=== PATIENT | female | born 1970 | race Caucasian/White ===

== ENCOUNTER → 2020-01-11 11:55 | Outpatient (CLI) | payer BC, SELFPAY ==
[2020-01-11 12:37] LABS: Basophils # 0.1 K/mm3 (0-0.2); Basophils % 0.9 % (0.1-2.0); Eosinophils # 0.2 K/mm3 (0.0-0.4); Eosinophils % 3.4 % (0.1-12.0); Hematocrit 40.2 % (37.0-47.0); Hemoglobin 13.4 g/dL (12.2-16.2); Lymphocytes # 2.5 K/mm3 (0.7-4.5); Lymphocytes % 41.7 % (10-50); Mean Corpuscular HGB Conc 33.3 g/dL (31.8-35.4); Mean Corpuscular Hemoglobin 31.7 pg (27.0-31.2); Mean Corpuscular Volume 95.2 fl (81-99); Mean Platelet Volume 9.9 fl (7.4-10.4); Monocytes # 0.3 K/mm3 (0.1-1.0); Monocytes % 5.5 % (1.7-9.3); Neutrophils # 2.9 K/mm3 (1.8-7.8); Neutrophils % 48.4 % (37.0-80.0); Platelet Count 137 K/mm3 (142-424); Red Blood Count 4.22 M/mm3 (4.20-5.40); Red Cell Distribution Width 13.1 % (11.5-17.5)
[2020-01-11 13:20] LABS: Erythrocyte Sedimentation Rate 14 mm/hr (0-20)
[2020-01-11 13:21] LABS: Chloride 101 mmol/L (98-107); Sodium 138 mmol/L (136-145)
[2020-01-11 13:22] LABS: Potassium 4.1 mmoL/L (3.5-5.1)
[2020-01-11 13:24] LABS: Alanine Aminotransferase 15 U/L (12-78); Albumin Level 4.2 g/dl (3.5-5.0); Albumin/Globulin Ratio 1.7 (1.1-1.8); Alkaline Phosphatase 65 U/L (38-126); Anion Gap 10.1 mEq/L (5-15); Aspartate Amino Transferase 24 U/L (14-36); Bilirubin,Total 0.3 mg/dl (0.2-1.3); Blood Urea Nitrogen 16 mg/dl (7-17); Carbon Dioxide 31 mmol/L (22.0-30.0); Cholesterol 174 mg/dl (140-200); Estimated Glomerular Filt Rate 89 ml/min (>60); GFR (African American) 107 ML/MIN (>60); Globulin 2.5 g/dL (1.3-3.2); Total Protein,Serum 6.7 g/dl (6.3-8.2); Triglycerides 56 mg/dl (30-150); VLDL Cholesterol 11 mg/dL (0-40)
[2020-01-11 13:25] LABS: Calcium 9.3 mg/dl (8.4-10.2); Chol/HDL Ratio 3.2 (1-3.5); Glucose 87 mg/dl (74-100); HDL Cholesterol 55 mg/dl (40-60)
[2020-01-11 13:36] LABS: C-Reactive Protein < 0.3 mg/L (0-4)
[2020-01-11 13:41] LABS: 25-OH Vitamin D, Total 83.4 ng/mL (30-100)
[2020-01-11 13:42] LABS: Free T4 (Free Thyroxine) 1.21 ng/dl (0.78-2.19)
[2020-01-11 13:55] LABS: Thyroid Stimulating Hormone 0.87 uIU/mL (0.465-4.68)
[2020-01-12 17:03] LABS: RA Latex Turbid. <10.0 IU/mL (0.0-13.9)
[2020-01-13 10:48] LABS: Anti-Cyclic Citrullinated Pept 6 units (0-19)
[2020-01-14 12:12] LABS: Anti-Centromere B Antibodies <0.2 AI (0.0-0.9); Anti-Jo-1 <0.2 AI (0.0-0.9); Anti-Smith Antibody <0.2 AI (0.0-0.9); Antichromatin Antibodies <0.2 AI (0.0-0.9); Antiscleroderma-70 Antibodies <0.2 AI (0.0-0.9); RNP Antibodies <0.2 AI (0.0-0.9); Sjogren's Anti-SS-A <0.2 AI (0.0-0.9); Sjogren's Anti-SS-B <0.2 AI (0.0-0.9)
[2020-01-14 14:23] LABS: PTT-LA 37.9 sec (0.0-51.9); dRVVT 40.3 sec (0.0-47.0)
[2020-01-14 14:40] LABS: Anti-DNA (DS) Ab Qn 1 IU/mL (0-9); Lupus Reflex Interpretation Comment: (.)
== END ==
PROVIDERS: Visit Provider Emergency Medicine
DX: M19.90 Unspecified osteoarthritis, unspecified site (principal); J44.1 Chronic obstructive pulmonary disease with (acute) exacerbation; E55.9 Vitamin D deficiency, unspecified
CPT/HCPCS: 36415; 80053; 80061; 82306; 84439; 84443; 85025; 85613; 85651; 86140; 86200; 86225; 86235; 86431

== ENCOUNTER → 2020-01-11 12:38 | Outpatient (CLI) | payer BC, SELFPAY ==
[2020-01-12 14:20] LABS: Covid-19 Nasal PCR Sendout Lex Not Detected
== END ==
PROVIDERS: PCP Emergency Medicine; Visit Provider Emergency Medicine
DX: Z03.818 Encounter for observation for suspected exposure to other biological agents ruled out (principal)
CPT/HCPCS: U0004

== ENCOUNTER 2020-02-28 14:02 | Emergency (ER) | payer BC, SELFPAY ==
[2020-02-28 14:24] LABS: Apearance,Urine Clear (Clear); Color,Urine Yellow (Yellow); PH,Urine 5.5 (5.0-8.5); Specific Gravity, Urine 1.025 (1.005-1.030)
[2020-02-28 14:25] LABS: Bilirubin,Urine Negative (Negative); Blood, Urine 1+ (Negative); Glucose,Urine (UA) Negative (Negative); Ketones,Urine Negative (Negative); Protein,Urine Negative (Negative); UTC Leukocyte Esterase,Urine Negative (Negative); UTC Nitrate,Urine Negative (Negative); Urobilinogen,Urine 0.2 EU/dl (0.2)
[2020-02-28 14:26] VITALS: BP 110/71; PULSE 88; RESP 14; TEMP 36.8; O2SAT 99; BMI 20.3
--- NOTE | 2020-02-28 14:36 | PC.NURSE ---
PATIENT SENT TO ER PER PANKAJ SIMPSON APRN FOR FURTHER EVALUATION OF POSSIBLE KIDNEY STONES.
[2020-02-28 14:37] VITALS: BP 115/83; PULSE 89; RESP 16; TEMP 36.8; O2SAT 100; BMI 20.4
--- NOTE | 2020-02-28 14:40 | HMH.EDUTC ---
[facility] [place] Clinical Impression: Flank pain Disposition: Still a Patient Condition on Discharge: Good Referrals: Ru Rand MD [Primary Care Provider] - Time of Disposition: 14:47 Medical Decision Making - Christ Inquiry Pt receiving controlled substance: No Christ was queried for this patient: No Vital Signs: 02/28/20 14:26 Temperature 98.3 F Temperature Source Oral Pulse Rate [Right Brachial] 88 Respiratory Rate 14 Blood Pressure [Right Arm] 110/71 Blood Pressure Mean [Right Arm] 84 Blood Pressure Source [Right Arm] Automatic Cuff Blood Pressure Position [Right Arm] Sitting 02 Sat by Pulse Oximetry 99 Oxygen Delivery Method Room Air - Lab Data Lab results reviewed: Yes: I reviewed the patient's lab results. Lab Results 02/28/20 14:23: Urine Color Yellow, Urine Appearance Clear, Urine pH 5.5, Ur Specific [place] 1.025, Urine Protein Negative, Urine Glucose (UA) Negative, Urine Ketones Negative, Urine Blood 1+, Urine Nitrate Negative, Urine Bilirubin Negative, Urine Urobilinogen 0.2, Ur Leukocyte Esterase Negative [facility] [place] - General Stated complaint: possible kidney inf Time Seen by Provider: 02/28/20 14:40 Mode of Arrival: Ambulatory Source of Information: Patient Limitations: No Limitations Description of Symptoms (Recalled from Triage Doc. by RN): PATIENT C/O BACK PAIN SINCE TUESDAY. SHE STATES SHE THINKS SHE HAS A KIDNEY STONE. HAS A HISTORY OF KIDNEY STONES WITH BLOCKAGE HEENT Symptoms (Recalled from RN notes): No Resp Symptoms (Recalled from RN notes): No Skin Symptoms (Recalled from RN notes): No MS Symptoms (Recalled from RN notes): No Functional Status (Recalled from RN notes): WNL - History of Present Illness Provider Complaint: Patient states that on Tue she started having achy like feeling in lower back area that has continued to get worse States that she was thinking she either had a kidney stone or infection States that she feels like she may have a Kidney stone again and when she urinated earlier she felt irritated State that she has had stones before and had to have them busted up by the surgeon State that today pain was worse so she came in - Related Data Home Medications Medication Instructions Recorded Confirmed Buspirone HCl [Buspar 10mg 10 mg PO DAILY 02/12/19 01/11/20 tablet] Celecoxib 100 mg PO DAILY 02/12/19 01/11/20 Polyethylene Glycol 8000 500 gm PO DAILY 02/12/19 01/11/20 [Polyethylene Glycol] Previous Rx's Medication Instructions Recorded gabapentin 800 mg tablet 800 mg PO TID #90 tab 01/11/20 ropinirole 0.5 mg tablet 0.5 mg PO QHS #30 tab 02/06/20 Allergies Allergy/AdvReac Type Severity Reaction Status Date / Time codeine Allergy Verified 01/11/20 10:35 - Worker's Comp Is this a Worker's Comp case?: No [facility] History - Hepatitis A Screen Drug use history?: No High risk sexual behaviors?: No History of sexually transmitted infection?: No Currently employed?: No Childcare worker?: No Do you have indoor plumbing?: Yes Do you have electricity?: Yes Attestation statement:: This patient has been screened for Hepatitis A risk factors. I have reviewed the patient's past medical history: Yes Medical History: Reports:: Chronic Obstructive Pulmonary Disease (COPD) Other Medical History: Reports: Arthritis Other Surgeries: Yes: Other (kidney stones,back surgery) Amputation: No Fractures: Yes (back fx) - Social History Smoking Status: Current every day smoker Tobacco Type: cigarettes # Packs/Day (cigarettes): 1 Alcohol Intake: never Substance Use Type: denies use Occupational Status: employed Housing: house Family Hx:: Cancer, Heart Attack, Kidney Disease ROS Obtained: Yes All systems reviewed & no additional complaints, Yes Systems reviewed as appropriate & no additional complaints - Constitutional Constitutional: Reports system reviewed and no additional complaints, except as docu - ENT Ears, Nose, Mouth,
--- NOTE | 2020-02-28 14:53 | CT_ITS ---
PROCEDURE: CT ABDOMEN PELVIS WO CON CLINICAL INDICATION: abd pain Low back pain, frequent urination COMPARISON: No exams were available for comparison TECHNIQUE: Axial images obtained with sagittal and coronal reformats. All CT scans at the facility use one or more dose reduction, viz: automated exposure control, ma/kV adjustment per patient size (including targeted exams where dose is matched to indication, i.e. head), or iterative reconstruction technique. FINDINGS: LOWER THORAX: A small pneumatocele in the central aspect of the right lung base. ABDOMEN & PELVIS: The liver, spleen, and pancreas have an unremarkable appearance. There is mild enlargement of both adrenal glands which are low density consistent with adenomatous involvement. There are at least 3 right renal calculi the largest measuring approximately 4 mm. No ureteral calculi. No hydronephrosis. No evidence of appendicitis. Multiple unopacified bowel loops in the abdomen or pelvis which could obscure or mimic pathology. If symptoms persist, consider repeat exam with IV and oral contrast. There are bilateral tubal ligation clips. No evidence diverticulitis. Prior posterior fusion at L4-L5. No acute bony findings. IMPRESSION: Nonobstructing right renal calculi. Other nonacute findings as described above Dictated by: Alcides Paulino MD 02/28/2020 16:27 Alcides Paulino MD in [place] 02/28/2020 16:27
--- NOTE | 2020-02-28 14:55 | PC.NURSE ---
PATIENT WOULD LIKE TO HOLD OFF ON LABS AT THIS TIME. PROVIDER NOTIFIED
[2020-02-28 14:58] LABS: Microscopic, Urine URINE MICROSCOPIC (MICROSCOPIC)
[2020-02-28 15:00] LABS: Appearance,Urine CLEAR (Clear); Bilirubin,Urine Negative (Negative); Blood, Urine TRACE-L (Negative); Color,Urine YELLOW (Yellow); Glucose,Urine (UA) Negative (Negative); Ketones,Urine Negative (Negative); Leukocyte Esterase,Urine Negative (Negative); Nitrate,Urine Negative (Negative); Protein,Urine Negative (Negative); Specific Gravity, Urine 1.025 (1.005-1.030); Urobilinogen,Urine 0.2 EU/dl (0.2)
[2020-02-28 15:12] LABS: WBC,Urine Occasional #/hpf (0-3)
[2020-02-28 15:13] LABS: Bacteria,Urine 2+ /lpf; Calcium Oxalate Crystals,Urine 1+ /lpf; Hyaline Casts,Urine Occasional #/lpf (0); Mucus,Urine 3+ /lpf
--- NOTE | 2020-02-28 15:34 | HMH.EDGENADL ---
ED Disposition Clinical Impression: Kidney stone Disposition: Home, Self-Care Condition on Discharge: Good Additional Instructions: You were seen on an emergency basis. It is very important that you follow up with your primary care provider and/or specialist as we discussed within 2 days. All labs and imaging were obtained and interpreted here to rule out life threatening emergencies, but your final results should be reviewed by your primary doctor at your follow up appointment. Please return to the emergency department if any of your symptoms worsen, or if they do not improve as we discussed. Referrals: Ru Rand MD [Primary Care Provider] - Forms: Work/School Release - Critical Care Critical Care Time: No Attestation: On 02/28/20, the high probability of a clinically significant, sudden or life threatening deterioration of the following system(s) required my full and direct attention, intervention and personal management. The time I documented below is in addition to time spent performing reported procedures but includes the following listed in this critical care notation. Medical Decision Making - Crhist Inquiry Pt receiving controlled substance: No Vital Signs: 02/28/20 14:26 02/28/20 14:37 Temperature 98.3 F 98.3 F Temperature Source Oral Oral Pulse Rate [Right Brachial] 88 89 Respiratory Rate 14 16 Blood Pressure [Right Arm] 110/71 115/83 Blood Pressure Mean [Right Arm] 84 93 Blood Pressure Source [Right Arm] Automatic Cuff Automatic Cuff Blood Pressure Position [Right Arm] Sitting 02 Sat by Pulse Oximetry 99 100 Oxygen Delivery Method Room Air Room Air - Lab Data Lab results reviewed: Yes: I reviewed the patient's lab results. Lab Results 02/28/20 14:23: Urine Color Yellow, Urine Appearance Clear, Urine pH 5.5, Ur Specific [place] 1.025, Urine Protein Negative, Urine Glucose (UA) Negative, Urine Ketones Negative, Urine Blood 1+, Urine Nitrate Negative, Urine Bilirubin Negative, Urine Urobilinogen 0.2, Ur Leukocyte Esterase Negative 02/28/20 14:40: Urine Color Yellow, Urine Appearance Clear, Urine pH 6.0, Ur Specific [place] 1.025, Urine Protein Negative, Urine Glucose (UA) Negative, Urine Ketones Negative, Urine Blood Trace-l, Urine Nitrate Negative, Urine Bilirubin Negative, Urine Urobilinogen 0.2, Ur Leukocyte Esterase Negative, Urine WBC Occasional, Ur Squamous Epith Cells 5-10, Calcium Oxalate Crystal 1+, Urine Bacteria 2+, Hyaline Casts Occasional, Urine Mucus 3+ 02/28/20 16:28: WBC 9.0, RBC 4.94, Hgb 15.5, Hct 46.1, MCV 93.3, MCH 31.4 H, MCHC 33.6, RDW 12.6, Plt Count 164, MPV 8.7, Neut % (Auto) 59.9, Lymph % (Auto) 32.4, [place] % (Auto) 4.3, Eos % (Auto) 2.8, Baso % (Auto) 0.6, Neut # (Auto) 5.4, Lymph # (Auto) 2.9, [place] # (Auto) 0.4, Eos # (Auto) 0.3, Baso # (Auto) 0.1 02/28/20 16:28: Sodium 141, Potassium 4.3, Chloride 103, Carbon Dioxide 30, Anion Gap 12.3, BUN 15, Creatinine 0.70, Estimated Creat Clear 90, Estimated GFR 89, Est GFR ( Amer) 107, Glucose 76, Calcium 9.4, Total Bilirubin 0.3, AST 31, ALT 18, Alkaline Phosphatase 72, Total Protein 7.2, Albumin 4.2, Globulin 3.0, Albumin/Globulin Ratio 1.4 Result diagrams: 02/28/20 16:28 02/28/20 16:28 Orders (Tests/Meds): ORDERS Category Date Time Status Urine Culture Stat Micro 02/28/20 14:40 Received Medical Decision Narrative: 49-year-old female with history of kidney stones presenting with 3-day history of back pain which has been improving. Nontoxic, afebrile, hemodynamically stable. No red flags for cauda equina syndrome. CT of the abdomen and pelvis was obtained and demonstrated renal calculi on the right but no obstructing or ureteral stones. It is likely that she passed a stone and that is why her pain is improved. Her urinalysis is negative for infection. CBC is within normal limits. CMP is nonactionable. Patient has pain medication at home. She is requesting to go home now. No further work-up indicated.
--- NOTE | 2020-02-28 15:36 | PC.NURSE ---
Pt returned from rad.
--- NOTE | 2020-02-28 16:32 | PC.NURSE ---
LABS COMPLETED WITH VENIPUNCTURE. PATIENT REFUSED IV. STATES SHE DOES NOT NEED ANY MEDICATIONS WHILE HERE. PROVIDER NOTIFIED
[2020-02-28 16:40] LABS: Basophils # 0.1 K/mm3 (0-0.2); Basophils % 0.6 % (0.1-2.0); Eosinophils # 0.3 K/mm3 (0.0-0.4); Eosinophils % 2.8 % (0.1-12.0); Hematocrit 46.1 % (37.0-47.0); Hemoglobin 15.5 g/dL (12.2-16.2); Lymphocytes # 2.9 K/mm3 (0.7-4.5); Lymphocytes % 32.4 % (10-50); Mean Corpuscular HGB Conc 33.6 g/dL (31.8-35.4); Mean Corpuscular Hemoglobin 31.4 pg (27.0-31.2); Mean Corpuscular Volume 93.3 fl (81-99); Mean Platelet Volume 8.7 fl (7.4-10.4); Monocytes # 0.4 K/mm3 (0.1-1.0); Monocytes % 4.3 % (1.7-9.3); Neutrophils # 5.4 K/mm3 (1.8-7.8); Neutrophils % 59.9 % (37.0-80.0); Platelet Count 164 K/mm3 (142-424); Red Blood Count 4.94 M/mm3 (4.20-5.40); Red Cell Distribution Width 12.6 % (11.5-17.5)
[2020-02-28 16:42] LABS: Chloride 103 mmol/L (98-107)
[2020-02-28 16:43] LABS: Potassium 4.3 mmoL/L (3.5-5.1); Sodium 141 mmol/L (136-145)
[2020-02-28 16:45] LABS: Alanine Aminotransferase 18 U/L (12-78); Aspartate Amino Transferase 31 U/L (14-36); Blood Urea Nitrogen 15 mg/dl (7-17); Creatinine Clearance Estimated 90 mL/min (50-200); Estimated Glomerular Filt Rate 89 ml/min (>60); GFR (African American) 107 ML/MIN (>60)
[2020-02-28 16:46] LABS: Albumin Level 4.2 g/dl (3.5-5.0); Albumin/Globulin Ratio 1.4 (1.1-1.8); Alkaline Phosphatase 72 U/L (38-126); Anion Gap 12.3 mEq/L (5-15); Bilirubin,Total 0.3 mg/dl (0.2-1.3); Calcium 9.4 mg/dl (8.4-10.2); Carbon Dioxide 30 mmol/L (22.0-30.0); Glucose 76 mg/dl (74-100); Total Protein,Serum 7.2 g/dl (6.3-8.2)
--- NOTE | 2020-02-28 16:59 | PC.NURSE ---
NOTIFIED PROVIDER THAT PATIENT STATES SHE IS READY TO GO HOME. PATIENT STATES SHE DOES NOT NEED MEDICATION HERE, BUT NEEDS A WORK EXCUSE
[2020-02-28 17:02] VITALS: BP 119/76; PULSE 84; RESP 18; TEMP 36.9; O2SAT 98
== END 2020-02-28 17:09 | disposition home or self-care (01) ==
LOC: UTC 14:05 → ER 14:36
PROVIDERS: Nurse Practitioner; Emergency Provider Physician Assistant; PCP Emergency Medicine
DX: N20.0 Calculus of kidney (principal); Z87.442 Personal history of urinary calculi; J44.9 Chronic obstructive pulmonary disease, unspecified; F17.210 Nicotine dependence, cigarettes, uncomplicated; Z88.5 Allergy status to narcotic agent
CPT/HCPCS: 74176; 80053; 81001; 81003; 85025; 87086; 99283

== ENCOUNTER → 2020-03-05 11:56 | Outpatient (CLI) | payer BC, SELFPAY ==
--- NOTE | 2020-03-05 12:00 | XR_ITS ---
PROCEDURE: XR LUMBAR SPINE MIN 4V CLINICAL INDICATION: LBP COMPARISON: No exams were available for comparison FINDINGS: There is normal alignment. There postsurgical changes with inter pedicular screws at L4 and L5 with a disc spacer at that level. No acute fracture or dislocation is evident. There is mild degenerative disc disease at L3-L4 with 3 mm anterolisthesis of L3. There is straightening of the lumbar lordosis which could be due to patient positioning or muscle spasm. Facet arthritic changes are present at L5-S1 There are at least 3 small stones in the upper pole of the right kidney measuring to 2 mm. Tubal ligation clips are present. Other findings:None. IMPRESSION: Postsurgical and degenerative changes as described above. Dictated by: Alcides Paulino MD 03/05/2020 16:45 lAcides Paulino MD in [place] 03/05/2020 16:45
== END ==
PROVIDERS: PCP Emergency Medicine; Visit Provider Nurse Practitioner Family
DX: M54.5 Low back pain (principal)
CPT/HCPCS: 72110

== ENCOUNTER → 2020-04-01 08:46 | Outpatient (CLI) | payer BC, SELFPAY ==
--- NOTE | 2020-04-01 08:46 | MR_ITS ---
PROCEDURE: MR LUMBAR SPINE WO CON CLINICAL INDICATION: back pain lbp sciatica down both legs. no trauma or injury. lumbar surgery x6yrs ago. prior x-ray 03-05-20 COMPARISON: CR XR LUMBAR SPINE MIN 4V from 03/05/2020 TECHNIQUE: Standard multiplanar multiecho sequences are performed without contrast. 3-D MIP and myelographic images are also rendered and reviewed FINDINGS: The spinal cord ends at the T12-L1 level. L1-L2: Unremarkable. L2-L3: Unremarkable. L3-L4: Minimal bulging disc. There is 3 mm anterolisthesis of L3. Facet and ligamentum hypertrophy is present with mild bilateral lateral recess and foraminal narrowing. L4-5: Artifact from inter pedicular screws status post prior posterior fusion at L4-5. This obscures fine detail. There is no canal stenosis. There is some mild facet hypertrophic change with mild bilateral foraminal narrowing. L5-S1: Bulging disc with a small broad-based right paracentral disc protrusion. The disc protrusion is abutting the anterior medial aspect of both S1 nerve roots slightly more eccentric toward the right. There may be some minimal displacement of the right S1 nerve root. IMPRESSION: 1. L3-L4: Minimal bulging disc. There is 3 mm anterolisthesis of L3. Facet and ligamentum hypertrophy is present with mild bilateral lateral recess and foraminal narrowing. 2. L4-5: Artifact from inter pedicular screws status post prior posterior fusion at L4-5. This obscures fine detail. There is no canal stenosis. There is some mild facet hypertrophic change with mild bilateral foraminal narrowing. 3. L5-S1: Bulging disc with a small broad-based right paracentral disc protrusion. The disc protrusion is abutting the anterior medial aspect of both S1 nerve roots slightly more eccentric toward the right. There may be some minimal displacement of the right S1 nerve root. Dictated by: Alcides Paulino MD 04/02/2020 13:21 Alcides Paulino MD in [place] 04/02/2020 13:21
== END ==
PROVIDERS: PCP Emergency Medicine; Visit Provider Emergency Medicine
DX: M54.5 Low back pain (principal)
CPT/HCPCS: 72148; 76376

== ENCOUNTER → 2020-08-26 08:56 | Outpatient (CLI) | payer BC, SELFPAY ==
--- NOTE | 2020-08-26 09:03 | XR_ITS ---
PROCEDURE: XR WRIST LT MIN 3V CLINICAL INDICATION: LEFT WRIST PAIN/ CTS COMPARISON: No exams were available for comparison FINDINGS: No fracture or dislocation. No lytic or blastic change. There is normal mineralization. The joint spaces are well-preserved. No significant degenerative/arthritic changes. No erosive changes evident. Other findings:None. IMPRESSION: No acute findings. Dictated by: Alcides Paulino MD 08/26/2020 16:51 Alcides Paulino MD in [place] 08/26/2020 16:51
--- NOTE | 2020-08-26 09:03 | XR_ITS ---
PROCEDURE: XR WRIST RT MIN 3V CLINICAL INDICATION: right wrist pain/ CTS COMPARISON: No exams were available for comparison FINDINGS: No fracture or dislocation. No lytic or blastic change. There is normal mineralization. The joint spaces are well-preserved. No significant degenerative/arthritic changes. No erosive changes evident. Other findings:None. IMPRESSION: No acute findings. Dictated by: Alcides Paulino MD 08/26/2020 16:52 Alcides Paulino MD in [place] 08/26/2020 16:52
== END ==
PROVIDERS: PCP Emergency Medicine; Visit Provider Orthopaedic Surgery
DX: M25.531 Pain in right wrist (principal); M25.532 Pain in left wrist
CPT/HCPCS: 73110

== ENCOUNTER → 2020-09-10 14:06 | Outpatient (CLI) | payer BC, SELFPAY ==
[2020-09-10 15:09] LABS: Amphetamine/Metha Screen,Urine Negative ng/ml (<1000)
[2020-09-10 15:10] LABS: Barbiturates Screen,Urine Negative ng/ml (<200)
[2020-09-10 15:11] LABS: Benzodiazepines Screen,Urine Negative ng/ml (<200); Cannabinoid Screen,Urine Negative ng/ml (<50)
[2020-09-10 15:12] LABS: Cocaine Screen,Urine Negative ng/ml (<300)
[2020-09-10 15:13] LABS: Methadone Screen,Urine Negative ng/ml (<300); Opiate Screen,Urine Negative ng/ml (<300)
[2020-09-10 15:14] LABS: Phencyclidine Screen,Urine Negative ng/ml (<25)
== END ==
PROVIDERS: Visit Provider Emergency Medicine
DX: Z79.899 Other long term (current) drug therapy (principal)
CPT/HCPCS: 80305

== ENCOUNTER → 2020-09-22 07:41 | Outpatient (CLI) | payer BC, SELFPAY ==
--- NOTE | 2020-09-22 07:51 | XR_ITS ---
PROCEDURE: XR CHEST 2V CLINICAL HISTORY: CONGESTION,COUGH COMPARISON: CR XR CHEST 2V from 02/12/2019 CR XR CHEST PORTABLE from 09/12/[address] ABDOMEN PELVIS WO CON from 02/28/2020 FINDINGS: The cardiomediastinal silhouette and pulmonary vascularity are within normal limits. Mild biapical pleural thickening not significantly changed. Lungs are otherwise clear side from calcified granulomas. No acute bony findings. COPD changes. IMPRESSION: No acute findings. Dictated by: Alcides Paulino MD 09/22/2020 09:20 Alcides Paulino MD in [place] 09/22/2020 09:20
[2020-09-22 08:32] LABS: Basophils # 0.1 K/mm3 (0-0.2); Basophils % 0.9 % (0.1-2.0); Eosinophils # 0.2 K/mm3 (0.0-0.4); Eosinophils % 2.8 % (0.1-12.0); Hematocrit 42.5 % (37.0-47.0); Hemoglobin 13.6 g/dL (12.2-16.2); Lymphocytes # 2.9 K/mm3 (0.7-4.5); Lymphocytes % 39.9 % (10-50); Mean Corpuscular HGB Conc 31.9 g/dL (31.8-35.4); Mean Corpuscular Hemoglobin 30.2 pg (27.0-31.2); Mean Corpuscular Volume 94.7 fl (81-99); Monocytes # 0.4 K/mm3 (0.1-1.0); Monocytes % 5.2 % (1.7-9.3); Neutrophils # 3.8 K/mm3 (1.8-7.8); Neutrophils % 51.3 % (37.0-80.0); Platelet Count 166 K/mm3 (142-424); Red Blood Count 4.49 M/mm3 (4.20-5.40); Red Cell Distribution Width 13.3 % (11.5-17.5); White Blood Count 7.3 K/mm3 (4.8-10.8)
[2020-09-22 08:52] LABS: Alanine Aminotransferase 15 U/L (12-78); Albumin Level 4.5 g/dl (3.5-5.0); Albumin/Globulin Ratio 1.9 (1.1-1.8); Alkaline Phosphatase 71 U/L (38-126); Anion Gap 12.6 mEq/L (5-15); Aspartate Amino Transferase 26 U/L (14-36); Bilirubin,Total 0.2 mg/dl (0.2-1.3); Blood Urea Nitrogen 13 mg/dl (7-17); Calcium 9.6 mg/dl (8.4-10.2); Carbon Dioxide 27 mmol/L (22.0-30.0); Chloride 104 mmol/L (98-107); Estimated Glomerular Filt Rate 88 ml/min (>60); GFR (African American) 107 ML/MIN (>60); Globulin 2.4 g/dL (1.3-3.2); Glucose 99 mg/dl (74-100); Potassium 4.6 mmoL/L (3.5-5.1); Sodium 139 mmol/L (136-145); Total Protein,Serum 6.9 g/dl (6.3-8.2)
== END ==
PROVIDERS: PCP Emergency Medicine; Visit Provider Orthopaedic Surgery
DX: Z01.818 Encounter for other preprocedural examination (principal)
CPT/HCPCS: 36415; 71046; 80053; 85025

== ENCOUNTER → 2020-09-23 07:32 | Outpatient (CLI) | payer BC, SELFPAY ==
[2020-09-23 09:24] LABS: Coronavirus 19 IgG Antibody Negative (Negative); Coronavirus 19 IgM Antibody Negative (Negative)
== END ==
PROVIDERS: Visit Provider Orthopaedic Surgery
DX: Z01.818 Encounter for other preprocedural examination (principal); Z20.822 Contact with and (suspected) exposure to COVID-19; G56.03 Carpal tunnel syndrome, bilateral upper limbs
CPT/HCPCS: 36415; 86328

== ENCOUNTER 2020-09-25 07:17 | Day surgery (SDC) | payer BC, SELFPAY ==
[2020-09-23 10:55] VITALS: BMI 20.3
[2020-09-25] VITALS (7 sets, daily range): BP systolic 102–117; BP diastolic 62–66; PULSE 52–80; RESP 14–18; TEMP 36.3–42.7; O2SAT 94–96
[2020-09-25 08:53] LABS: HCG Qualitative, Serum Negative (Negative)
--- NOTE | 2020-09-25 09:19 | P.PN_ITS ---
[facility] Anesthesia Checklist - Patient Identification Patient Identification: Arm Band - Structural Data Admitted From: Home Planned Operative Procedure/s: L. Carpal tunnel Consent for Planned Operative Procedure(s) Verified: Yes - NPO Status Verified Time NPO: 00:00 - Additional verifications Anesthesia Reactions: No Hx Blood Transfusions: No Blood Transfusion Reaction: No - Airway Assessment C-Spine Mobility Assessed: Yes TMJ Mobility Assessed: Yes Dentition: Good Dentition - Neurological Assessment Level of Consciousness: Awake Hx Seizures: No Numbness or tingling in extremities: No - Anesthesia Plan Anesthesia Risk discussed: Yes Anesthesia Plan: Verified ASA Class: II Anesthesia Type: MAC w/Block [facility] History I have reviewed the patient's past medical history: Yes Medical History: Reports:: Chronic Obstructive Pulmonary Disease (COPD), Kidney Stones Denies:: Cancer, Diabetes Mellitus Type 1, Diabetes Mellitus Type 2, MRSA, Seizures *Have you ever received a pneumonia vaccine?: No *Have you received a flu vaccine this season?: Yes Other Medical History: Reports: Arthritis. Denies: Blood Transfusion Reaction Anesthesia experience/problems:: PONV Other Surgeries: Yes: Colonoscopy, Tubal Ligation, Other Amputation: No Fractures: Yes (back fx) - *Social History Smoking Status: Current every day smoker Tobacco Type: cigarettes # Packs/Day (cigarettes): 1 Alcohol Intake: never Substance Use Type: denies use *Occupational Status:: employed Housing: house Household Members: significant other *Travel in the last 8 weeks: None Family Hx:: Cancer, Heart Attack, Kidney Disease
--- NOTE | 2020-09-25 10:03 | P.PN_ITS ---
[facility] Anesthesia Record Part I Intake, IV Amount: 1,000 Estimated blood loss (mL): 0 Urine output (mL): 0 Blood Pressure: 102/64 SaO2: 95 Pulse Rate: 72 Respiratory Rate: 14 Temperature: 97.3 F Patient is:: Awake Stable to PACU at:: 09:59
--- NOTE | 2020-09-25 10:44 | HMH.OPNOTE ---
Date of procedure: 09/25/20 Pre-op Diagnosis:: Carpal tunnel syndrome, left wrist Post-op Diagnosis:: Same Procedure performed:: Open carpal tunnel release, left wrist Surgeon:: Diaz Saunders MD Health Officer(s):: Ami Rivero DIRECT CARE WORKER:: Other ([facility]) Anesthesia: regional (Supraclavicular nerve block) Estimated blood loss (mL): 2 Clinical Note:: Patient is a 50-year-old female with bilateral carpal tunnel syndrome with long-standing symptoms. EMG/NCV studies confirmed carpal tunnel syndrome on both sides and her right side was more symptomatic when she was seen in the office. However, since then she has been having more problems with the left side and has decided to have left carpal tunnel release today. Patient is having significant and disabling symptoms and has failed to respond adequately to conservative management.. Therefore, carpal tunnel release surgery is necessary to relieve symptoms, preserve the remaining fibers of the median nerve, improve function and decrease the pain, paresthesias and weakness and to prevent permanent nerve damage. Please refer to my office note for full details. Operative findings:: The intraoperative findings showed the median nerve to be very tightly compressed and hyperemic. The flexor retinaculum was noted to be thick and tight. There was mild synovitis in the carpal tunnel. There was no evidence of any space-occupying lesions within the carpal tunnel. Operative note:: On the day of the surgery the patient was met in the preoperative area. Patient was positively identified and the operative site was marked and initialed by me. Patient was originally scheduled for carpal tunnel release on the right side. However, she reports more symptoms on the left side since the office visit and is wanting to have surgery on the left side first instead of the right. A physical examination was performed and the chart was updated. I have discussed the procedure, risks and benefits and alternatives with the patient. The complications discussed include but are not limited to- bleeding, injury to nerves, blood vessels and tendons, infection, wound dehiscence, incomplete relief/continued pain, persistent numbness, palmar hypersensitivity, pillar pain, DVT/PE, complex regional pain syndrome(CRPS), worsening of nerve damage, failure of the condition to improve, incomplete return of function, bowstringing of tendons, weakness of financial market dealer strength, recurrence, failure of the surgery to accomplish the desired goals, decreased use of the hand, loss of use of the arm, loss of the hand or arm, loss of life. Likely need for further surgery in the future has been discussed. I've indicated to the patient where the proposed incision would be made and also discussed the possibility of extending the incision if needed to accomplish an effective release. We have discussed how the goal of surgery is to protect the fibers which have remained healthy and hopefully reverse the symptoms of the fibers which are compromised but still recoverable. We have explained that, fibers that are permanently damaged will not recover. Patient asked appropriate questions and all have been answered by me. Patient wished to proceed with the surgery. Patient understood the risks, agreed to proceed with surgery, signed the consent form and no guarantees or assurances were given or implied. The patient was brought to the operating room and placed supine on the operating table. The left upper extremity was placed over a side table. All the bony prominences were well-padded. The patient had a supraclavicular nerve block and IV sedation administered by the china painter. A well-padded tourniquet cuff was placed over the upper arm. The left upper extremity was prepped and draped in the usual sterile fashion. A preprocedure timeout was performed as per hospital policy. Administration of prophylactic antibiotics was confirmed with the china painter. The skin incision was marked using the
--- NOTE | 2020-09-25 13:34 | P.PN_ITS ---
[facility] Anesthesia Record Part II Discharge Time: 10:35 Destination: Surgical Day Care (OP Surgery) PACU nurse assessment reviewed?: Yes Patient Condition:: Good Anesthesia Complications:: None Swallowing reflex intact?: Yes Cyanosis?: No Blood Pressure: 116/66 Pulse Rate: 78 Temperature: 97.3 F Mental Status: Alert & Oriented Pain level:: 0 Nausea and/or vomitting:: None Intake, IV Amount: 1,000
== END 2020-09-25 10:40 | disposition home or self-care (01) ==
LOC: OR 07:17
PROVIDERS: PCP Emergency Medicine; Visit Provider Orthopaedic Surgery
PROC: (CPT 64721; principal; 2020-09-25 09:00)
DX: G56.02 Carpal tunnel syndrome, left upper limb (principal)
CPT/HCPCS: 64721; 84703; 96374; J0670

== ENCOUNTER → 2020-11-04 11:48 | Outpatient (CLI) | payer BC, SELFPAY ==
[2020-11-04 12:25] LABS: Basophils # 0.1 K/mm3 (0-0.2); Basophils % 0.5 % (0.1-2.0); Eosinophils # 0.2 K/mm3 (0.0-0.4); Hematocrit 44.1 % (37.0-47.0); Hemoglobin 14.3 g/dL (12.2-16.2); Lymphocytes # 1.8 K/mm3 (0.7-4.5); Lymphocytes % 20.4 % (10-50); Mean Corpuscular HGB Conc 32.5 g/dL (31.8-35.4); Mean Corpuscular Hemoglobin 29.2 pg (27.0-31.2); Mean Corpuscular Volume 89.9 fl (81-99); Mean Platelet Volume 8.2 fl (7.4-10.4); Monocytes # 0.4 K/mm3 (0.1-1.0); Neutrophils # 6.2 K/mm3 (1.8-7.8); Platelet Count 189 K/mm3 (142-424); Red Blood Count 4.91 M/mm3 (4.20-5.40); Red Cell Distribution Width 13.3 % (11.5-17.5); White Blood Count 8.7 K/mm3 (4.8-10.8)
[2020-11-04 13:00] LABS: Chloride 102 mmol/L (98-107); Sodium 138 mmol/L (136-145)
[2020-11-04 13:03] LABS: Anion Gap 13.1 mEq/L (5-15); Blood Urea Nitrogen 15 mg/dl (7-17); Carbon Dioxide 27 mmol/L (22.0-30.0); Estimated Glomerular Filt Rate 88 ml/min (>60); GFR (African American) 107 ML/MIN (>60); Potassium 4.1 mmoL/L (3.5-5.1)
[2020-11-04 13:04] LABS: Calcium 9.5 mg/dl (8.4-10.2); Glucose 96 mg/dl (74-100)
== END ==
PROVIDERS: Visit Provider Orthopaedic Surgery
DX: Z01.818 Encounter for other preprocedural examination (principal)
CPT/HCPCS: 36415; 80048; 85025

== ENCOUNTER → 2020-11-05 13:52 | Outpatient (CLI) | payer BC, SELFPAY ==
[2020-11-05 15:24] LABS: Amphetamine/Metha Screen,Urine Negative ng/ml (<1000); Barbiturates Screen,Urine Negative ng/ml (<200)
[2020-11-05 15:25] LABS: Benzodiazepines Screen,Urine Negative ng/ml (<200)
[2020-11-05 15:26] LABS: Cannabinoid Screen,Urine Negative ng/ml (<50); Cocaine Screen,Urine Negative ng/ml (<300)
[2020-11-05 15:27] LABS: Methadone Screen,Urine Negative ng/ml (<300)
[2020-11-05 15:28] LABS: Opiate Screen,Urine Negative ng/ml (<300); Phencyclidine Screen,Urine Negative ng/ml (<25)
== END ==
PROVIDERS: Visit Provider Emergency Medicine
DX: Z79.899 Other long term (current) drug therapy (principal)
CPT/HCPCS: 80305

== ENCOUNTER → 2020-11-18 15:44 | Outpatient (CLI) | payer BC, SELFPAY | PROVIDERS: Visit Provider Orthopaedic Surgery | DX: Z01.812 Encounter for preprocedural laboratory examination (principal); Z20.822 Contact with and (suspected) exposure to COVID-19; G56.01 Carpal tunnel syndrome, right upper limb | CPT/HCPCS: U0003 ==

== ENCOUNTER 2020-11-20 07:23 | Day surgery (SDC) | payer BC, SELFPAY ==
[2020-11-20] VITALS (11 sets, daily range): BP systolic 94–114; BP diastolic 50–69; PULSE 82–88; RESP 15–18; TEMP 36.2–38; O2SAT 92–99; BMI 19.5
[2020-11-20 07:58] LABS: Urine Pregnancy, HCG Qual. Negative (Negative)
--- NOTE | 2020-11-20 09:30 | HMH.OPNOTE ---
Date of procedure: 11/20/20 Pre-op Diagnosis:: Carpal tunnel syndrome, right wrist Post-op Diagnosis:: Same Procedure performed:: Open carpal tunnel release, right Surgeon:: Diaz Saunders MD HUMAN RESOURCES PROFESSIONAL:: Other Anesthesia: LMA Estimated blood loss (mL): 2 Clinical Note:: Patient is a 50-year-old female with right carpal tunnel syndrome with long-standing symptoms. Her EMG/NCV studies confirmed carpal tunnel syndrome on both sides and she previously underwent successful carpal tunnel release on the left side. Patient is now having significant and disabling symptoms on the right side and has failed to respond adequately to conservative management.]. Therefore, a right carpal tunnel release surgery is necessary to relieve symptoms, preserve the remaining fibers of the median nerve, improve function and decrease the pain, paresthesias and weakness and to prevent permanent nerve damage. Please refer to my office note for full details. Operative findings:: The intraoperative findings showed the median nerve to be compressed and hyperemic. The flexor retinaculum was noted to be thick and tight. There was mild synovitis in the carpal tunnel. There was no evidence of any space-occupying lesions within the carpal tunnel. Operative note:: On the day of the surgery the patient was met in the preoperative area. Patient was positively identified and the operative site was marked and initialed by me. A physical examination was performed and the chart was updated. I again discussed the procedure, risks and benefits and alternatives with the patient. The complications discussed include but are not limited to- bleeding, injury to nerves, blood vessels and tendons, infection, wound dehiscence, incomplete relief/continued pain, persistent numbness, palmar hypersensitivity, pillar pain, DVT/PE, complex regional pain syndrome(CRPS), worsening of nerve damage, failure of the condition to improve, incomplete return of function, bowstringing of tendons, weakness of bilingual loan processor strength, recurrence, failure of the surgery to accomplish the desired goals, decreased use of the hand, loss of use of the arm, loss of the hand or arm, loss of life. Likely need for further surgery in the future has been discussed. I've indicated to the patient where the proposed incision would be made and also discussed the possibility of extending the incision if needed to accomplish an effective release. We have discussed how the goal of surgery is to protect the fibers which have remained healthy and hopefully reverse the symptoms of the fibers which are compromised but still recoverable. We have explained that, fibers that are permanently damaged will not recover. Patient asked appropriate questions and all have been answered by me. Patient wished to proceed with the surgery. Patient understood the risks, agreed to proceed with surgery, and no guarantees or assurances were given or implied. The patient was brought to the operating room and placed supine on the operating table. The right upper extremity was placed over a side table. All the bony prominences were well-padded. Patient had a general anesthesia administered with six sigma black belt engineer. A well-padded tourniquet cuff was placed over the upper arm. The right upper extremity was prepped and draped in the usual sterile fashion. A preprocedure timeout was performed as per hospital policy. Administration of prophylactic antibiotics was confirmed with the six sigma black belt engineer. The skin incision was marked using the Gee's landmarks, just ulnar to the thenar crease. The limb was exsanguinated with the Esmarch bandage and tourniquet was inflated to 250 mmHg. Please see nursing records for the total tourniquet time. Gee's landmarks were utilized and a skin incision was made parallel and just ulnar to the thenar crease with a 15 blade. Blunt tissue dissection was carried through the subcutaneous tissue down to the palmar fascia. The palmar fascia was incised with the knife to reve
--- NOTE | 2020-11-20 10:49 | P.PN_ITS ---
[facility] Anesthesia Checklist - Patient Identification Patient Identification: Arm Band - Structural Data Admitted From: Home Planned Operative Procedure/s: Right CTR Consent for Planned Operative Procedure(s) Verified: Yes Verified Documents: Surgical Consent, History and Physical - NPO Status Verified Time NPO: 00:00 - Additional verifications Anesthesia Reactions: No (NAUSEA) Hx Blood Transfusions: No Blood Transfusion Reaction: No - Airway Assessment C-Spine Mobility Assessed: Yes TMJ Mobility Assessed: Yes Dentition: Good Dentition - Neurological Assessment Level of Consciousness: Awake, Alert - Anesthesia Plan Anesthesia Risk discussed: Yes Anesthesia Plan: Verified ASA Class: III Anesthesia Type: General [facility] History Medical History: Reports:: Chronic Obstructive Pulmonary Disease (COPD), Kidney Stones Denies:: Cancer, Diabetes Mellitus Type 1, Diabetes Mellitus Type 2, Internal Pacemaker, MRSA, Seizures *Have you ever received a pneumonia vaccine?: No *Have you received a flu vaccine this season?: Yes Other Medical History: Reports: Arthritis. Denies: Blood Transfusion Reaction Anesthesia experience/problems:: None Laterality Cases: Right: Carpal Tunnel Release Other Surgeries: Yes: Colonoscopy, Tubal Ligation, Other. No: Pacemaker Amputation: No Fractures: Yes (back fx) - *Social History Last grade of school completed: Some college Smoking Status: Current every day smoker Tobacco Type: cigarettes # Packs/Day (cigarettes): 1 Alcohol Intake: never Substance Use Type: denies use *Occupational Status:: employed Housing: house Household Members: none *Travel in the last 8 weeks: None Family Hx:: Coronary Artery Disease
--- NOTE | 2020-11-20 10:51 | HMH.ANESI ---
[facility] Anesthesia Record Part I Intake, IV Amount: 800 Estimated blood loss (mL): 1 Urine output (mL): 0 Blood Pressure: 102/60 SaO2: 92 Pulse Rate: 88 Respiratory Rate: 15 Temperature: 97.2 F Patient is:: Drowsy Stable to PACU at:: 09:17
--- NOTE | 2020-11-21 07:26 | HMH.ANESII ---
[facility] Anesthesia Record Part II Discharge Time: 09:37 Destination: Surgical Day Care (OP Surgery) PACU nurse assessment reviewed?: Yes Patient Condition:: Good Anesthesia Complications:: None Swallowing reflex intact?: Yes Cyanosis?: No Blood Pressure: 107/67 Pulse Rate: 84 Temperature: 97.4 F Mental Status: Alert & Oriented Pain level:: 0 Nausea and/or vomitting:: None Intake, IV Amount: 0
[2020-11-21 07:27] VITALS: BP 107/67; PULSE 84; TEMP 36.3
== END 2020-11-20 10:10 | disposition home or self-care (01) ==
LOC: OR 07:24
PROVIDERS: PCP Emergency Medicine; Visit Provider Orthopaedic Surgery
PROC: (CPT 64721; principal; 2020-11-20 07:30)
DX: G56.01 Carpal tunnel syndrome, right upper limb (principal)
CPT/HCPCS: 64721; 81025; 96374; J2405

== ENCOUNTER 2021-01-18 11:21 | Emergency (ER) | payer BC, SELFPAY ==
[2021-01-18 11:39] VITALS: BP 124/63; PULSE 99; RESP 22; TEMP 36.9; O2SAT 98; BMI 20.3
--- NOTE | 2021-01-18 11:43 | XR_ITS ---
PROCEDURE INFORMATION: Exam: XR Chest Exam date and time: 01/18/2021 11:43 AM Age: 50 years old Clinical indication: Cough; Additional info: SOA TECHNIQUE: Imaging protocol: XR of the chest. Views: 2 views. COMPARISON: CR XR CHEST 2V 09/22/2020 7:52 AM FINDINGS: Lungs: Unremarkable. No consolidation. Pleural spaces: Unremarkable. No pleural effusion. No pneumothorax. Heart/Mediastinum: Unremarkable. No cardiomegaly. Bones/joints: Unremarkable. IMPRESSION: No new cardiopulmonary findings.
--- NOTE | 2021-01-18 11:43 | XR_ITS ---
PROCEDURE INFORMATION: Exam: XR Thoracic Spine Exam date and time: 01/18/2021 11:43 AM Age: 50 years old Clinical indication: Pain in thoracic spine TECHNIQUE: Imaging protocol: XR of the thoracic spine. Views: 3 views. COMPARISON: CR XR CHEST 2V 09/22/2020 7:52 AM FINDINGS: Bones/joints: Stable mild dorsal spondylosis. No acute fracture malalignment or discrete bony destruction is seen. Soft tissues: Unremarkable. IMPRESSION: Stable mild dorsal spondylosis. No acute fracture malalignment or discrete bony destruction is seen.
--- NOTE | 2021-01-18 11:49 | HMH.EDUTC ---
[facility] [place]ression: Pleurisy, Upper back pain, COPD exacerbation Disposition: Home, Self-Care Condition on Discharge: Good Instructions: Pleurisy, DI for Pleurisy, Thoracic Back Pain Additional Instructions: Drink plenty of fluids. Start taking the celebrex that you have at home for pain. Take the medications as directed. Follow up with your regular doctor. Go home and rest. It would be best if you rested tomorrow too. No heavy lifting. No twisting. Take the oral medications as directed. Don't start the oral steroids (medrol dose pack) until tomorrow, since you had the shots in here today. Follow up with your regular doctor. GO TO THE ER FOR ANY WORSENING SYMPTOMS OR CONCERN, Prescriptions: Cyclobenzaprine HCl [Cyclobenzaprine 10mg Tab] 10 mg PO BIDP PRN #20 tab PRN Reason: Muscle Spasm Transmission Status: Received by [id number] methylPREDNISolone [Medrol] 4 mg PO DIRECTED 6 Days #21 tab.ds.pk Transmission Status: Received by [id number] Azithromycin [Z-Adi 250mg Tab*] 250 mg PO UD DOSE PK #6 tab Transmission Status: Received by [id number] Referrals: Ru Rand MD [Primary Care Provider] - Time of Disposition: 12:25 Medical Decision Making - Medical Records Medical records reviewed: No: I reviewed the patient's medical records. - Christ Inquiry Pt receiving controlled substance: No Vital Signs: 01/18/21 11:39 01/18/21 13:33 Temperature 98.4 F 98.4 F Temperature Source Oral Pulse Rate 87 Pulse Rate [Left] 99 H Respiratory Rate 22 20 Blood Pressure 124/63 Blood Pressure [Right Arm] 124/63 Blood Pressure Mean [Right Arm] 83 02 Sat by Pulse Oximetry 98 Orders (Tests/Meds): ED MEDICATIONS Discontinued Medications Generic Name Dose Route Start Last Admin Trade Name Freq PRN Reason Stop Dose Admin Ketorolac Tromethamine 60 mg 01/18/21 12:10 01/18/21 12:51 Ketorolac 60mg/2ml Vial IM 01/18/21 12:11 60 mg ONCE ONE Administration Methylprednisolone Sodium Succinate 125 mg 01/18/21 12:10 01/18/21 12:51 Methylprednisolone Sod Succ 125mg Vial IM 01/18/21 12:11 125 mg ONCE ONE Administration - Radiology Data #1 Image(s): Chest Image Reviewed: Yes I reviewed the patient's radiology image, Yes I have reviewed radiologist's interpretation Preliminary Findings: No Infiltrates Seen PROCEDURE INFORMATION: Exam: XR Chest Exam date and time: 01/18/2021 11:43 AM Age: 50 years old Clinical indication: Cough; Additional info: SOA TECHNIQUE: Imaging protocol: XR of the chest. Views: 2 views. COMPARISON: CR XR CHEST 2V 09/22/2020 7:52 AM FINDINGS: Lungs: Unremarkable. No consolidation. Pleural spaces: Unremarkable. No pleural effusion. No pneumothorax. Heart/Mediastinum: Unremarkable. No cardiomegaly. Bones/joints: Unremarkable. IMPRESSION: No new cardiopulmonary findings. #2 Image(s): T-Spine Image Reviewed: Yes I reviewed the patient's radiology image, Yes I have reviewed radiologist's interpretation Preliminary Findings: Abnormal, No Fracture Seen PROCEDURE INFORMATION: Exam: XR Thoracic Spine Exam date and time: 01/18/2021 11:43 AM Age: 50 years old Clinical indication: Pain in thoracic spine TECHNIQUE: Imaging protocol: XR of the thoracic spine. Views: 3 views. COMPARISON: CR XR CHEST 2V 09/22/2020 7:52 AM FINDINGS: Bones/joints: Stable mild dorsal spondylosis. No acute fracture malalignment or discrete bony destruction is seen. Soft tissues: Unremarkable. IMPRESSION: Stable mild dorsal spondylosis. No acute fracture malalignment or discrete bony destruction is seen. [facility] [place] General Stated complaint: SOB Time Seen by Provider: 01/18/21 11:49 Mode of Arrival: Ambulatory Source of
[2021-01-18 13:33] VITALS: BP 124/63; PULSE 87; RESP 20; TEMP 36.9
== END 2021-01-18 13:33 | disposition home or self-care (01) ==
PROVIDERS: Emergency Provider Nurse Practitioner Family; PCP Emergency Medicine
DX: J44.1 Chronic obstructive pulmonary disease with (acute) exacerbation (principal); R09.1 Pleurisy; M54.6 Pain in thoracic spine; F17.210 Nicotine dependence, cigarettes, uncomplicated
CPT/HCPCS: 71046; 72072; 96372; 99202; G0463

== ENCOUNTER 2021-03-18 10:07 | Emergency (ER) | payer BC, SELFPAY ==
[2021-03-18 10:28] VITALS: BP 123/73; PULSE 74; RESP 18; TEMP 36.7; O2SAT 99; BMI 19.5
--- NOTE | 2021-03-18 10:33 | PC.NURSE ---
pt refuses a chest xray and transfer to ER.
--- NOTE | 2021-03-18 10:34 | HMH.EDUTC ---
[facility] [place] Clinical Impression: Pleurisy URI (upper respiratory infection) Qualifiers: URI type: unspecified URI Qualified Code(s): J06.9 - Acute upper respiratory infection, unspecified Disposition: Home, Self-Care Condition on Discharge: Good Instructions: Sore Throat, DI for Sinusitis, DI for Pleurisy, DI for Ear Pain-Adult Additional Instructions: *Monitor Temp, Over the counter Motrin or Tylenol as directed/as needed Tylenol every 4 hours and Motrin every 6 hours (as long as your family doctor has told you that you can take it) for fever or pain. and straight to ER if unable to lower temp less than 101.0 after medication given *Warm salt water gargles may help to soothe the throat *Throat Lozenges *Warm fluids like tea with honey may help to soothe the throat *Sleep elevated *Humidifier/Vaporizer *Flonase 2 sprays in each nostril daily but be aware that it may take 2-3 days before you notice improvement Take your medications as prescribed Return if needed Follow up IMMEDIATELY for new or worsening symptoms or no Noticeable improvement over the next 48-72 hours. 911 for difficulty breathing or swallowing You were tested for today for COVID19 your test result should be back in the next 24-48 hours, you may call to the [facility] to see if your test results are back in the next 48 hours [phone] [facility] hours are 9am-9pm You was given a handout with instructions for Self Quarantine and Self isolation for while you wait on test results and what to do if they are positive If you are positive the Health Dept will be contacting you also Make sure to take your Vitamins Vit. C Vit D and Zinc if you can take them Prescriptions: methylPREDNISolone [Medrol 4mg tab] 4 mg PO DIRECTED #21 tab Transmission Status: [id number] Azithromycin [Z-Adi 250mg Tab] 250 mg PO DIRECTED #6 tab Transmission Status: Received by [id number] Referrals: Ru Rand MD [Primary Care Provider] - As needed Time of Disposition: 10:56 Medical Decision Making - Christ Inquiry Pt receiving controlled substance: No Christ was queried for this patient: No Vital Signs: 03/18/21 10:28 03/18/21 10:52 Temperature 98.1 F 98.1 F Temperature Source Temporal Artery Scan Oral Pulse Rate 94 H Pulse Rate [Left] 74 Respiratory Rate 18 18 Blood Pressure 123/72 Blood Pressure [Right Arm] 123/73 Blood Pressure Mean [Right Arm] 89 02 Sat by Pulse Oximetry 99 Orders (Tests/Meds): ED MEDICATIONS Discontinued Medications Generic Name Dose Route Start Last Admin Trade Name Freq PRN Reason Stop Dose Admin Ketorolac Tromethamine 60 mg 03/18/21 10:36 03/18/21 10:43 Ketorolac 60mg/2ml Vial IM 03/18/21 10:37 60 mg ONCE ONE Administration Methylprednisolone Sodium Succinate 125 mg 03/18/21 10:36 03/18/21 10:43 Methylprednisolone Sod Succ 125mg Vial IM 03/18/21 10:37 125 mg ONCE ONE Administration Medical Decision Narrative: Discussed with patient and recommended transfer to the ED for more extensive work up and evaluation and CXR and patient declined states that she only takes her Celexicob as needed and hasnt taken it in several days so she wanted to see if she could get a Torodol shot to help with her headache and body aches States that she has taken it before and it helped alot along with steriod shot States that she wasnt having chest pain and did not want to be transferred to the ED Discussed CXR and EKG again with patient and she declined Patient states that she has taken azithromycin and Medrol in the past without complications or reactions [facility] [place] - General Stated complaint: pain in chest area Time Seen by Provider: 03/18/21 10:34 Mode of Arrival: Ambulatory Source of Information: Patient Limitations: No Limitations Description of Symptoms (Recalled from Triage Doc. by RN): pt wants a covid and flu test. pt c/o n/v, myalgia, CORRIGAN, bilateral ear aches, and back and c
[2021-03-18 10:52] VITALS: BP 123/72; PULSE 94; RESP 18; TEMP 36.7
[2021-03-19 20:06] LABS: UTC Influenza A Antigen Negative (Negative); UTC Influenza B Antigen Negative (Negative)
== END 2021-03-18 11:08 | disposition home or self-care (01) ==
PROVIDERS: Emergency Provider Nurse Practitioner; PCP Emergency Medicine
DX: R09.1 Pleurisy (principal); J06.9 Acute upper respiratory infection, unspecified; Z20.822 Contact with and (suspected) exposure to COVID-19; J44.9 Chronic obstructive pulmonary disease, unspecified; Z87.442 Personal history of urinary calculi; F17.210 Nicotine dependence, cigarettes, uncomplicated
CPT/HCPCS: 87804; 96372; 99202; C9803; G0463; U0003; U0005

== ENCOUNTER 2021-12-07 10:16 | Emergency (ER) | payer BC, SELFPAY ==
[2021-12-07 10:25] VITALS: BP 103/70; PULSE 80; RESP 18; TEMP 36.7; O2SAT 97; BMI 20.3
--- NOTE | 2021-12-07 10:49 | HMH.EDUTC ---
[facility] [place] Clinical Impression: Cellulitis Qualifiers: Site of cellulitis: unspecified site Qualified Code(s): L03.90 - Cellulitis, unspecified Disposition: Home, Self-Care Condition on Discharge: Good Instructions: Cellulitis, Clindamycin Additional Instructions: *Start antibiotic(s) immediately and be sure to take as ordered for the FULL length of time although you may be feeling better or start to see improvement in the next 24-48 hours *Monitor closely. Outlined redness so that you can monitor easier. Follow up immediately for new or worsening symptoms including but not limited to redness, swelling, streaking from site fever or chills. *Never squeeze or pop these on your own. Seek immediate medical attention next time this occurs *Monitor Temp. Tylenol every 4 hours as needed and ibuprofen every 6 hours as needed (as long as your primary care doctor has told you that it is ok to take both. For fever, aches, pain. ER if no less that 101 despite Tylenol and ibuprofen Follow up with your family doctor/primary care physician in the next 48-72 hours if no improvement Return if needed Straight to ER if any life threatening symptoms Prescriptions: clindamycin HCL [Cleocin HCl] 300 mg PO Q8H 7 Days #21 cap Transmission Status: [id number] Referrals: Ru Rand MD [Primary Care Provider] - As needed Time of Disposition: 11:08 Medical Decision Making - Christ Inquiry Pt receiving controlled substance: No Christ was queried for this patient: No Vital Signs: 12/07/21 10:25 12/07/21 11:05 Temperature 98.1 F 98.1 F Temperature Source Oral Pulse Rate 80 Pulse Rate [Right Brachial] 80 Respiratory Rate 18 18 Blood Pressure 103/70 L Blood Pressure [Right Arm] 103/70 L Blood Pressure Mean [Right Arm] 81 Blood Pressure Source [Right Arm] Automatic Cuff Blood Pressure Position [Right Arm] Sitting 02 Sat by Pulse Oximetry 97 Oxygen Delivery Method Room Air [facility] [place] - General Stated complaint: spider bite Time Seen by Provider: 12/07/21 10:49 Mode of Arrival: Ambulatory Source of Information: Patient Limitations: No Limitations Description of Symptoms (Recalled from Triage Doc. by RN): PATIENT C/O SPIDER BITE TO LEFT ANKLE SINCE TUESDAY. REDNESS AND SWELLING NOTED TO LEFT FOOT HEENT Symptoms (Recalled from RN notes): No Resp Symptoms (Recalled from RN notes): No Skin Symptoms (Recalled from RN notes): Yes MS Symptoms (Recalled from RN notes): No Functional Status (Recalled from RN notes): WNL - History of Present Illness Provider Complaint: Patient state that she thinks she was bitten by something on Tuesday when she was working in her flower garden on her left ankle and thinks it was a spider. State that she noticed a small area on the side of her ankle that looks like a bite area and since then she has been having pain and swelling in her ankle going down into her foot States that they marked the redness and it keeps spreading on her foot so today she was worried it was getting infected so she came in - Related Data Home Medications Medication Instructions Recorded Confirmed Polyethylene Glycol 8000 500 gm PO DAILY 02/12/19 11/20/21 [Polyethylene Glycol] Ropinirole HCl 0.5 mg PO DAILY 11/12/20 11/20/21 Previous Rx's Medication Instructions Recorded celecoxib 100 mg capsule See Rx Instructions .ROUTE 01/03/21 .COMPLEX #90 cap Cyclobenzaprine HCl 10 mg PO BIDP PRN #20 tab 01/18/21 [Cyclobenzaprine 10mg Tab] nystatin 100,000 unit/mL oral 10 ml PO Q8H 5 Days #150 ml 01/27/21 suspension fluconazole 100 mg tablet 100 mg PO DAILY #5 tab 03/23/21 tizanidine 4 mg tablet See Rx Instructions .ROUTE 07/16/21 .COMPLEX #540 tab ofloxacin 0.3 % ear drops 10 drp OTIC BID 5 Days #10 ml 08/31/21 buspirone 10 mg tablet See Rx Instructions .ROUTE 09/21/21 .COMPLEX #90 tab duloxetine 30 mg capsule,delayed See Rx Instructions .ROUTE 09/21/21 release .COMPLEX #90 capsule fl
[2021-12-07 11:05] VITALS: BP 103/70; PULSE 80; RESP 18; TEMP 36.7; O2SAT 97
== END 2021-12-07 11:11 | disposition home or self-care (01) ==
PROVIDERS: Emergency Provider Nurse Practitioner; PCP Emergency Medicine
DX: L03.116 Cellulitis of left lower limb (principal); T63.301A Toxic effect of unspecified spider venom, accidental (unintentional), initial encounter
CPT/HCPCS: 99212; G0463

== ENCOUNTER → 2021-12-15 07:51 | Outpatient (CLI) | payer BC, SELFPAY ==
--- NOTE | 2021-12-15 | CA_ITS ---
APPROVED REPORT Exam: Exercise Treadmill Technologist: Kasandra Gonzalez, Ht: 5 ft 7 in Wt: 137 lbs BSA: 1.72 m2 HR: 61 bpm BP: 123/73 mmHg Rhythm: NSR, PVC, SLOW R WAVE PROGRESSION Medical History Medications: Gabapentin,,,,, Buspirone,,,,, Ropinirole,,,,, DulOXETINE,,,,, Tizanidine,,,,, Celecoxib,,,,, Cyclobenzaprine,,,,, BREo,,,,, NYstatin,,,,, Fluconazole,,,,, Hydrocodone-Acetaminophen,,,,, Ofloxacin,,,,, Allergies: CODEINE Cardiac Risk Factors: FHX of CAD, Smoking Stress Test Details Test: Exercise stress testing was performed using a Isaiah protocol. HR Resting HR: 65 bpm Max Heart Rate (APMHR): 168 bpm Max HR Achieved: 132 bpm Target HR (85% APMHR): 142 bpm % of APMHR: 78 Recovery HR: 72 bpm BP Resting BP: 123/73 mmHg Max BP: 147/56 mmHg Recovery BP: 124.0/59.0 mmHg ECG Resting ECG: NSR, PVC, SLOW R WAVE PROGRESSION Clinical Exercise duration: 08:01 min Highest Stage Achieved: Exercise capacity: 10.1 METs Stress ECG Conclusion MAX HR: 132 % OF PM: 79% MAX BP: 147/56 METS:10.1 TEST STOPPED DUE TO: SOA NO CP. RARE PVC [address] DEPRESSION INFERIORLY AND LATERALLY. EQUIVOCAL EKG CHANGES TO THE HR ACHIEVED. MYOVIEW IMAGES REPORTED SEPARATELY. Test Summary REST . . . . . . . Sitting REST 04:30 0.0 0.0 65 . 123/ 73 . . Stage 1 01:00 10.0 1.7 83 . . . . Stage 1 02:00 10.0 1.7 86 . . . . Stage 1 03:00 10.0 1.7 89 . 132/ 65 . . Stage 2 01:00 12.0 2.5 97 . . . . Stage 2 02:00 12.0 2.5 106 . . . . Stage 2 03:00 12.0 2.5 112 . 138/ 65 . . Stage 3 01:00 14.0 3.4 124 . . . . Stage 3 02:00 14.0 3.4 132 . . . . Stage 3 02:01 14.0 3.4 132 . . . Stop exercise at 08:01 RECOVERY 01:00 0.0 0.0 101 . . . . RECOVERY 02:00 0.0 0.0 86 . 147/ 56 . . RECOVERY 03:00 0.0 0.0 69 . 147/ 56 . . RECOVERY 04:00 0.0 0.0 72 . 122/ 56 . . RECOVERY 05:00 0.0 0.0 72 . 124/ 59 . . RECOVERY 05:24 0.0 0.0 74 . 124/ 59 . . Electronically signed by : Anthony Wilson MD 12/15/2021 21:00:27
--- NOTE | 2021-12-15 07:51 | XR_ITS ---
FINAL REPORT CLINICAL HISTORY: swelling AND PAIN RT WRIST COMPARISON: 08/26/2020 FINDINGS: RIGHT WRIST Three views were obtained. There is no acute fracture or dislocation. The joint spaces appear normal. No soft tissue abnormality is identified. IMPRESSION: No acute process. Reviewed, Interpreted and Dictated by Gonzalo Medina III, MD Transcribed by Gemma Slater Authenticated and . [facility]
--- NOTE | 2021-12-15 07:51 | NM_ITS ---
APPROVED REPORT Exam: Nuclear Stress Test Indication: Chest pain, SOB, Tobacco use, Family history Patient Location: Outpatient Stress Tech: Kasandra Gonzalez [place] Tech:Viviana Mcfarlane, ARRT, RT (R)(N) Ht: 5 ft 7 in Wt: 132 lbs Bra Size: 36B HR: 65 bpm BP: 123/73 mmHg BSA: 1.70 m2 TID: 1.26 BMI: 20.6 History: Chest pain, SOB, Tobacco use, Family history Procedure: Patient exercised on Isaiah protocol 8:01 minutes and sec, resting heart rate 65 bpm, resting blood pressure 123/73 mmHg, with exercise maximum heart rate achived was 132 bpm which is 79 % of the maximum predicted heart rate and blood pressure was 147/56 mmHg. Test was stopped due to SOB. Patient denied any complaint of chest pain. Patient has Good exercise capacity, achieved 10.1 METs of workload on treadmill, the blood pressure response to exercise was Adequate. Electrocardiogram Resting electrocardiogram shows sinus rhythm, with exercise there is less than 1.[address] segment depression noted from the baseline EKG. The EKG portion of the exercise Myoview was nondiagnostic as patient did not achieve the target heart rate. Cardiac Stress and Resting SPECT Images: Cardiac Stress and Resting SPECT images were obtained using technetium 99m Myoview 31.7 mCi stress and 9.97 mCi at rest. Gated SPECT for analysis of segmental wall motion and calculation of the ejection fraction also done. Prone images were also obtained. Cardiac stress and rest SPECT images show uniform myocardial activity without segmental perfusion abnormality, computer derived ejection fraction is 50% with no regional wall motion abnormality, right ventricle is normal size with normal contractility. Conclusion: 1. The EKG portion of the exercise Myoview is nondiagnostic as patient did not achieve the target heart rate, patient has good exercise capacity achieved 10.1 METs of workload on treadmill, the blood pressure response to exercise was adequate, there was no exercise-induced chest discomfort. 2. No scintigraphic evidence of reversible ischemia seen, computer derived ejection fraction 50% with no regional wall motion abnormality, right ventricle is normal size and contractility. Electronically signed by : Anthony Wilson MD 12/15/2021 21:03:12
--- NOTE | 2021-12-15 10:03 | HMH.ITSHM ---
Current Home Medications as stated by this patient Sparkle Lamas or rental representative. []TISANIDINE OFLOXACIN NYSTATIN MONTELUKAST HYDROCODONE BUSPIRONE GABAPENTIN FLUTICASONE FLUCONAZOLE DULOXETINE CLEOCIN CELECOXIB BUDESONIDE ROPINIROLE CYCLOBENZAPRINE
--- NOTE | 2021-12-15 10:09 | XR_ITS ---
FINAL REPORT CLINICAL HISTORY: right side lung pain COMPARISON: 01/18/2021 FINDINGS: Two views of the chest were obtained. The heart size and pulmonary vascularity are within normal limits. The mediastinum is normal. No acute pulmonary abnormality is identified. There is no pneumothorax. The bony thorax is intact. IMPRESSION: No active cardiopulmonary disease. Reviewed, Interpreted and Dictated by Gonzalo Medina III, MD Transcribed by Gemma Slater Authenticated and [facility]
== END ==
PROVIDERS: PCP Emergency Medicine; Visit Provider Emergency Medicine
DX: R07.9 Chest pain, unspecified (principal); G56.00 Carpal tunnel syndrome, unspecified upper limb; J44.1 Chronic obstructive pulmonary disease with (acute) exacerbation
CPT/HCPCS: 71046; 73110; 78452; 93017; A9502

== ENCOUNTER → 2022-01-12 09:20 | Outpatient (CLI) | payer BC, SELFPAY ==
--- NOTE | 2022-01-12 09:20 | US_ITS ---
PROCEDURE INFORMATION: Exam: US Right Breast, Complete MG Bilateral Diagnostic Breast Tomosynthesis Exam date and time: 01/12/2022 9:14 AM Age: 51 years old Clinical indication: Right breast palpable lump TECHNIQUE: Imaging protocol: Complete ultrasound of all four quadrants of the Right breast and the retroareolar regions, including ultrasound of the axilla when performed. Bilateral Diagnostic tomosynthesis and 2D mammography including computer-aided detection (CAD) when performed. Unilateral or bilateral exam. COMPARISON: Screening-Bilateral Mammography 05/01/2019 4:02 PM FINDINGS: MAMMOGRAPHY: The breasts are heterogeneously dense, which may obscure small masses. A skin marker was placed over the palpable abnormality in the right lower inner quadrant. The spot compression views demonstrate normal overlapping fibroglandular structures. There is no stellate mass, architectural distortion or suspicious microcalcifications in either breast to suggest malignancy. No skin thickening or axillary adenopathy. ULTRASOUND: Sonographic images of the right breast including the retroareolar region, all 4 quadrants and the axilla do not demonstrate any solid or cystic masses. This is with particular attention to the 4 o'clock axis 7 cm from the nipple where the patient reports a palpable abnormality. No architectural distortion or acoustical shadowing. No skin thickening or axillary adenopathy. IMPRESSION: Palpable abnormality in the right breast corresponds both mammographically and sonographically to normal fibroglandular structures. There is no mammographic evidence of malignancy. Further evaluation of a palpable abnormality should be based on clinical grounds regardless of radiographic findings or lack thereof. Annual mammographic screening is recommended unless otherwise clinically indicated. ASSESSMENT: BI-RADS Category 1: Negative
== END ==
PROVIDERS: PCP Emergency Medicine; Visit Provider Surgery
DX: N60.01 Solitary cyst of right breast (principal)
CPT/HCPCS: 76641; 77062; 77066; G0279

== ENCOUNTER → 2022-01-29 14:39 | Outpatient (CLI) | payer BC, SELFPAY | PROVIDERS: PCP Emergency Medicine; Visit Provider Surgery | DX: Z01.812 Encounter for preprocedural laboratory examination (principal); Z20.822 Contact with and (suspected) exposure to COVID-19; N60.01 Solitary cyst of right breast; L72.0 Epidermal cyst | CPT/HCPCS: C9803; U0003; U0005 ==

== ENCOUNTER 2022-02-01 07:20 | Day surgery (SDC) | payer BC, SELFPAY ==
[2022-02-01 07:42] VITALS: BP 95/62; PULSE 71; RESP 18; TEMP 36.7; O2SAT 97; BMI 20.3
--- NOTE | 2022-02-01 08:06 | HMH.GSHP ---
HPI HPI: Patient is a 51-year-old female referred by Dr. Rand for cyst on her upper back. She states that this has been present for years. It is bothersome to her. She has apparently had it cut out several times by Dr. Quinones and Dr. Rand. It has recurred. She also describes an area on the right side of her nose and on her right medial inferior breast area. Apparently her father had problems with significant cysts. She would like to have the area on her back excised as well as on the medial lower breast area. Patient was seen and examined in the office. Tentative plan was made for excision. She underwent breast imaging which was unremarkable showing only fibroglandular tissue. On examination she had an area consistent with recurrent scarred sebaceous cyst on the back. There was a tiny skin punctum on the right medial breast area consistent with tiny epidermal inclusion cyst. Plan was made for excision of both of these under local MAC. [facility] History I have reviewed the patient's past medical history: Yes Medical History: Reports:: Chronic Obstructive Pulmonary Disease (COPD), Kidney Stones Denies:: Cancer, Diabetes Mellitus Type 1, Diabetes Mellitus Type 2, Internal Pacemaker, MRSA, Seizures *Have you ever received a pneumonia vaccine?: No *Have you received a flu vaccine this season?: No Other Medical History: Reports: Arthritis. Denies: Blood Transfusion Reaction Laterality Cases: Bilateral: Carpal Tunnel Release, Myringotomy (Ear Tubes) Other Surgeries: Yes: Colonoscopy, Tubal Ligation, Other. No: Pacemaker Amputation: No Fractures: Yes (back fx) - *Social History Last grade of school completed: Some college Smoking Status: Current every day smoker Tobacco Type: cigarettes # Packs/Day (cigarettes): 1 Alcohol Intake: never Substance Use Type: denies use *Occupational Status:: employed Housing: house Household Members: none *Travel in the last 8 weeks: None Family Hx:: Cancer, Coronary Artery Disease Review of Systems - Review of Systems Review of systems:: pertinent systems reviewed and negative unless documented below Meds Home Medications Medication Instructions Recorded Confirmed Type Polyethylene Glycol 8000 500 gm PO DAILY 02/12/19 02/01/22 History [Polyethylene Glycol] Ropinirole HCl 0.5 mg PO DAILY 11/12/20 02/01/22 History gabapentin 800 mg tablet 800 mg PO TID #90 tab 01/20/22 02/01/22 Rx hydrocodone 5 mg-acetaminophen 325 1 tab PO BID PRN #60 tab 01/20/22 02/01/22 Rx mg tablet Buspirone HCl [Buspar 10mg 10 mg PO BID 02/01/22 02/01/22 History tablet] Duloxetine HCl [Cymbalta] 30 mg PO DAILY 02/01/22 02/01/22 History Fluticasone/Salmeterol [Advair 1 inh IH DAILY 02/01/22 02/01/22 History 100/50mcg diskus] Mometasone/Formoterol [Dulera] 1 puff IH BID 02/01/22 02/01/22 History Montelukast Sodium [Singulair] 10 mg PO DAILY 02/01/22 02/01/22 History Tizanidine HCl 2 tab PO TID 02/01/22 02/01/22 History Allergies Allergy/AdvReac Type Severity Reaction Status Date / Time codeine Allergy Verified 02/01/22 07:31 Exam Vital signs and Labs for Last 24 Hours: Temp Pulse Resp BP Pulse Ox 98.0 F 71 18 95/62 L 97 02/01/22 07:42 02/01/22 07:42 02/01/22 07:42 02/01/22 07:42 02/01/22 07:42 I & O for Last 24 hours: Intake & Output 01/29/22 01/30/22 01/31/22 02/01/22 11:59 11:59 11:59 11:59 Weight 130 lb - Constitutional no acute distress - *Routine HEENT Exam Head: Present: normocephalic Eye: Present: EOMI, PERRL ENT: Present: mucous membranes moist - *Routine Neck Exam Present: supple. Absent: lymphadenopathy - *Routine Respiratory Exam Present: CTA bilaterally - *Routine Cardiovascular Exam Present: RRR - *Routine Abdominal Exam Present: soft, normoactive bowel sounds. Absent: tenderness - *Routine Rectal Exam Rectal:: deferred - *Routine Genitalia Exam Genitalia:: deferred - *Routine Extremities Exam Absent: cyanosis, cl
--- NOTE | 2022-02-01 08:11 | P.PN_ITS ---
[facility] Anesthesia Checklist - Patient Identification Patient Identification: Arm Band - Structural Data Admitted From: Home Planned Operative Procedure/s: Excision lesions right lower breast, left upper back Consent for Planned Operative Procedure(s) Verified: Yes Verified Documents: Surgical Consent, History and Physical - NPO Status Verified Time NPO: 00:00 - Additional verifications Anesthesia Reactions: Yes (NAUSEA) Hx Blood Transfusions: No Blood Transfusion Reaction: No - Airway Assessment C-Spine Mobility Assessed: Yes (mp2) TMJ Mobility Assessed: Yes Dentition: Good Dentition - Neurological Assessment Level of Consciousness: Awake, Alert - Anesthesia Plan Anesthesia Risk discussed: Yes Anesthesia Plan: Verified ASA Class: II Anesthesia Type: MAC [facility] History I have reviewed the patient's past medical history: Yes Medical History: Reports:: Chronic Obstructive Pulmonary Disease (COPD), Kidney Stones Denies:: Cancer, Diabetes Mellitus Type 1, Diabetes Mellitus Type 2, Internal Pacemaker, MRSA, Seizures *Have you ever received a pneumonia vaccine?: No *Have you received a flu vaccine this season?: No Other Medical History: Reports: Arthritis. Denies: Blood Transfusion Reaction Anesthesia experience/problems:: nac Laterality Cases: Bilateral: Carpal Tunnel Release, Myringotomy (Ear Tubes) Other Surgeries: Yes: Colonoscopy, Tubal Ligation, Other. No: Pacemaker Amputation: No Fractures: Yes (back fx) - *Social History Last grade of school completed: Some college Smoking Status: Current every day smoker Tobacco Type: cigarettes # Packs/Day (cigarettes): 1 Alcohol Intake: never Substance Use Type: denies use *Occupational Status:: employed Housing: house Household Members: none *Travel in the last 8 weeks: None Family Hx:: Cancer, Coronary Artery Disease
--- NOTE | 2022-02-01 09:23 | P.OP_ITS ---
Date of procedure: 02/01/22 Pre-op Diagnosis:: Skin lesion on mid back and right breast Post-op Diagnosis:: Same Procedure performed:: Excision of skin lesion from right medial breast (excisional length approximately 1.5 cm) Excision of skin lesion from mid back (excisional length approximately 2.0 cm) Surgeon:: Gonzalo Correa MD SHIPPING & RECEIVING LEAD:: Kylah Diop Anesthesia: MAC, local Estimated blood loss (mL): 5 Clinical Note:: Patient is a 51-year-old female referred by Dr. Rand for cyst on her upper back. She states that this has been present for years. It is bothersome to her. She has apparently had it cut out several times by Dr. Quinones and Dr. Rand. It has recurred. She also describes an area on the right side of her nose and on her right medial inferior breast area. Apparently her father had problems with significant cysts. She would like to have the area on her back excised as well as on the medial lower breast area. Patient was seen and examined in the office. Tentative plan was made for excision. She underwent breast imaging which was unremarkable showing only fibroglandular tissue. On examination she had an area consistent with recurrent scarred sebaceous cyst on the back. There was a tiny skin punctum on the right medial breast area consistent with tiny diminutive epidermal inclusion cyst. She wished to have t hese areas excised. Plan was made for excision of both of these under local MAC. Operative findings:: Consistent with tiny inclusion cysts Operative note:: Patient was taken to the operating room. She was positioned supine position. Intravenous sedation was achieved. Right breast was prepped and draped in the standard surgical fashion. Lesion was marked with a skin marker for planned elliptical incision along normal skin lines. Local anesthetic was infiltrated. Skin incision was made. Dissection was carried down to the superficial s ubcutaneous tissues. Overlying skin ellipse with tiny diminutive inclusion cyst was excised. It was sent off for specimen. Hemostasis was achieved. Incision was closed using subdermal interrupted 3-0 Vicryl and skin was closed with 4-0 Monocryl. Dermabond was applied. Patient was then repositioned for excision of the apparent scarred inclusion cyst on the mid thoracic back. Area was prepped and draped. Lesion was marked with a skin marker for planned elliptical incision. Local anesthetic was infiltrated. Skin incision was performed. Dissection was carried down to normal subcutaneous tissues. Skin ellipse with apparent previously ruptured inclusion cyst was sent off as a specimen. Hemostasis was achieved. Subdermal tissues were closed with interrupted 3-0 Vicryl. Skin was closed with interrupted 4-0 and 3-0 nylon sutures. Clean dry sterile dressing was applied. Condition: stable Disposition: PACU Specimens:: Skin lesion right medial breast Skin lesion back Complications:: None immediately apparent
[2022-02-01 09:24] VITALS: BP 103/57; PULSE 78; RESP 16; TEMP 36.5; O2SAT 97
[2022-02-01 09:39] VITALS: BP 99/57; PULSE 73; RESP 16; TEMP 36.5; O2SAT 96
[2022-02-01 09:54] VITALS: BP 103/54; PULSE 76; RESP 16; TEMP 36.5; O2SAT 96
[2022-02-01 10:07] VITALS: BP 102/62; PULSE 70; RESP 16; TEMP 36.5; O2SAT 96
== END 2022-02-01 10:07 | disposition home or self-care (01) ==
LOC: OR 07:22
PROVIDERS: PCP Emergency Medicine; Visit Provider Surgery
PROC: (CPT 19120; principal; 2022-02-01 08:45)
DX: L72.0 Epidermal cyst (principal); D17.1 Benign lipomatous neoplasm of skin and subcutaneous tissue of trunk; J44.9 Chronic obstructive pulmonary disease, unspecified; Z72.0 Tobacco use; Z79.899 Other long term (current) drug therapy
CPT/HCPCS: 19120; 11402; 96374; J2405

== ENCOUNTER 2022-03-13 10:08 | Emergency (ER) | payer BC, SELFPAY ==
[2022-03-13 10:16] VITALS: BP 83/56; PULSE 66; RESP 16; TEMP 36.4; O2SAT 99; BMI 20.3
--- NOTE | 2022-03-13 10:19 | EXP.UTC ---
Discharge Plan Disposition Patient Disposition: Home, Self-Care Prescriptions Prescriptions: New methylprednisolone 4 mg Tablets,Dose Pack 4 mg PO DIRECTED Qty: 21 0RF No Action gabapentin 800 mg tablet 800 mg PO TID Qty: 90 1RF hydrocodone-acetaminophen 5-325 mg tablet 1 tab PO BID PRN (Reason: pain) Qty: 60 0RF tizanidine 4 MG tablet 2 tab PO TID Rx Instructions: TAKE TWO TABLETS BY MOUTH 3 TIMES A DAY buspirone 10 MG tablet 10 mg PO BID Rx Instructions: TAKE 1 TABLET BY MOUTH EVERY DAY FOR BOWELS montelukast 10 MG tablet 10 mg PO DAILY fluticasone propion-salmeterol 28 PUFF blister with device 1 inh IH DAILY duloxetine 30 MG capsule,delayed release(DR/EC) 30 mg PO DAILY Rx Instructions: TAKE 1 CAPSULE BY MOUTH AT BEDTIME mometasone-formoterol 13 GM HFA aerosol inhaler 1 puff IH BID hydrocodone-acetaminophen 1 TAB tablet 1 - 2 tab PO Q6HP PRN (Reason: Moderate Pain) Qty: 11 0RF polyethylene glycol 8000(bulk) 500 GM powder 500 gm PO DAILY ropinirole 0.5 MG tablet 0.5 mg PO DAILY Rx Instructions: TAKE 1 TABLET BY MOUTH AT BEDTIME 1-3 HOURS BEFORE BEDTIME Referrals Follow up/Referrals: Ru Rand MD [Primary Care Provider] - See instructions Activity Restrictions/Add. Instructions Additional Instructions/Restrictions: Rest the extremity, Elevate the extremity as tolerated while you are resting. Follow up with your orthopedist. Follow up with your regular doctor. GO TO THE ER FOR ANY WORSENING SYMPTOMS Clinical Impressions Clinical Impression: Osteoarthritis of right wrist Instructions Patient Instructions: DI for Osteoarthritis Discharge ED Provider: Gian Ramires [facility] General Stated complaint: rt hand swelling no ao Time Seen by Provider: 03/13/22 10:19 History of Present Illness Provider Complaint: She has had right wrist pain since yesterday. She denies any injury. She states that she has arthritis in that wrist and it flares up like this at times. Related Data Home Medications Medication Instructions Recorded Confirmed polyethylene glycol 8000(bulk) 500 gm PO DAILY BOWELS 02/12/19 02/01/22 ropinirole 0.5 mg tablet 0.5 mg PO DAILY rls 11/12/20 02/01/22 buspirone 10 mg tablet 10 mg PO BID bowels 02/01/22 02/01/22 duloxetine 30 mg capsule,delayed 30 mg PO DAILY Anxiety 02/01/22 02/01/22 release fluticasone 100 mcg-salmeterol 50 1 inh inhalation DAILY shortness 02/01/22 02/01/22 mcg/dose blistr powdr for of air inhalation mometasone-formoterol HFA 100 1 puff inhalation BID . 02/01/22 02/01/22 mcg-5 mcg/actuation aerosol inhaler montelukast 10 mg tablet 10 mg PO DAILY allergies 02/01/22 02/01/22 tizanidine 4 mg tablet 2 tab PO TID Back ache/back pain 02/01/22 02/01/22 Previous Rx's Medication Instructions Recorded gabapentin 800 mg tablet 800 mg PO TID Pain #90 tabs 01/20/22 hydrocodone 5 mg-acetaminophen 325 1 tab PO BID PRN pain #60 tabs 01/20/22 mg tablet hydrocodone 5 mg-acetaminophen 325 1 - 2 tab PO Q6HP PRN Moderate 02/01/22 mg tablet Pain #11 tabs methylprednisolone 4 mg tablets in 4 mg PO DIRECTED #21 tabs 03/13/22 a dose pack Allergies Allergy/AdvReac Type Severity Reaction Status Date / Time codeine Allergy Verified 03/13/22 10:28 [facility] Social History Smoking Status: Current every day smoker tobacco type: cigarettes packs per day: 1 second hand exposure: Yes alcohol intake: never substance use type: denies use current occupational status: employed Travel in the last 8 weeks: None household members: none housing: house current occupation: [employer] current occupational exposures/hazards: No caffeine: Yes ROS Obtained: Yes All systems reviewed & no additional complaints except as documented Constitutional Constitutional: Reports system reviewed
[2022-03-13 10:52] VITALS: BP 83/56; PULSE 66; RESP 16; TEMP 36.4
== END 2022-03-13 11:00 | disposition home or self-care (01) ==
PROVIDERS: Emergency Provider Nurse Practitioner Family; PCP Emergency Medicine
DX: M19.031 Primary osteoarthritis, right wrist (principal)
CPT/HCPCS: 96372; 99212; G0463

== ENCOUNTER → 2022-04-01 06:48 | Outpatient (CLI) | payer BC, SELFPAY ==
--- NOTE | 2022-04-01 06:50 | CT_ITS ---
FINAL REPORT TECHNIQUE: Axial CT images were performed through the chest without contrast. Coronal reformatted images were submitted. This study was performed with techniques to keep radiation doses as low as reasonably achievable (ALARA). Individualized dose reduction techniques using automated exposure control or adjustment of mA and/or kV according to the patient's size were employed. CLINICAL HISTORY: shortness of breath FINDINGS: There is no axillary adenopathy. There is no hilar or mediastinal adenopathy. The heart size is normal. There is no pericardial or pleural effusion. Limited images of the upper abdomen demonstrate right nephrolithiasis. No suspicious infiltrate or nodule identified. There is no acute pulmonary opacity. There are mild changes of emphysema. There is no evidence of interstitial lung disease. IMPRESSION: Mild changes of emphysema with no acute process. Reviewed, Interpreted and Dictated by Edison La MD Transcribed by Cathy Muñoz Authenticated and [facility]
--- NOTE | 2022-04-01 06:50 | MR_ITS ---
FINAL REPORT TECHNIQUE: Multiplanar MR without gadolinium enhancement CLINICAL HISTORY: neck pain. LEFT SIDED NECK and arm pain with numbness and tingling. symptoms for 6 months. no injury or trauma. FINDINGS: Limited images of the posterior fossa are unremarkable. Reversal of the cervical lordosis. Alignment is normal. Marrow edema type signal in C5 and C6 most likely due to spondylosis and discogenic disease. Cervical spinal cord shows normal signal and contour. C2-3: Unremarkable. C3-4: Minimal annular disc bulge. C4-5: Mild annular disc bulge. Mild right and moderate left neural foraminal narrowing. C5-6: Moderate spondylosis. Moderate bilateral neural foraminal narrowing. Mild central canal stenosis. C6-7: Moderate spondylosis. Borderline central canal stenosis. Moderate left and mild right neural foraminal narrowing. C7-T1: Unremarkable. IMPRESSION: Multilevel degenerative disc disease as described. Reviewed, Interpreted and Dictated by Edison La MD Transcribed by Jerad Dias Authenticated and [facility]
--- NOTE | 2022-04-01 06:50 | MR_ITS ---
FINAL REPORT TECHNIQUE: Multiplanar MR without contrast CLINICAL HISTORY: back pain. LEFT SIDED MID BACK PAIN FOR 6 MONTHS. NO INJURY OR TRAUMA. FINDINGS: The vertebral heights are normal. Marrow edema in the pedicles and facets of T3 and T4 and the T3 spinous process with mild surrounding soft tissue edema. This could be posttraumatic or much less likely infectious or neoplastic. Recommend CT correlation to evaluate bone. Alignment is normal. Thoracic spinal cord shows a normal MR appearance. Tiny left paracentral T7-T8 disc protrusion. There is no canal stenosis present. IMPRESSION: Marrow edema in the posterior elements of T3 and T4, likely symptomatic. Etiology is not really evident as to posttraumatic, infectious, or neoplastic. Recommend additional correlation with CT as well as follow-up MRI in 6-8 weeks with contrast. Reviewed, Interpreted and Dictated by Edison La MD Transcribed by Jerad Dias Authenticated and [facility]
== END ==
PROVIDERS: PCP Emergency Medicine; Visit Provider Emergency Medicine
DX: R06.02 Shortness of breath (principal); M54.2 Cervicalgia; M54.9 Dorsalgia, unspecified
CPT/HCPCS: 71250; 72141; 72146; 76376

== ENCOUNTER → 2022-06-01 08:17 | Outpatient (CLI) | payer BC, SELFPAY ==
--- NOTE | 2022-06-01 08:22 | CT_ITS ---
FINAL REPORT TECHNIQUE: Axial images through the thoracic spine were performed after the administration of IV contrast. Sagittal reconstruction images were performed. This study was performed with techniques to keep radiation doses as low as reasonably achievable, (ALARA). Individualized dose reduction techniques using automated exposure control or adjustment of mA and/or kV according to the patient's size were employed. CLINICAL HISTORY: mid and lower back pain COMPARISON: 04/01/2022 FINDINGS: CT THORACIC SPINE WITH CONTRAST No fracture is identified. There are mild diffuse degenerative disc changes. T3 and T4 pedicles and posterior elements have a normal CT appearance. There is no obvious extra osseous soft tissue mass or inflammatory process. There is no malalignment. There is no significant central canal stenosis or neural foraminal narrowing. There is no paraspinal soft tissue abnormality. IMPRESSION: No CT abnormality to correspond to the MR findings. Differential considerations are stress reaction versus less likely neoplasm/marrow infiltration. Recommend short-term follow-up MRI with contrast. Reviewed, Interpreted and Dictated by Edison La MD Transcribed by Cathy Muñoz Authenticated and [facility]
--- NOTE | 2022-06-01 08:55 | MR_ITS ---
FINAL REPORT TECHNIQUE: Multiplanar MR, without and with gadolinium enhancement CLINICAL HISTORY: Low back pain lower back pain hx of lower back surgery x 2 years ago and 12 years ago worse on left side intermittent left leg pain, numbness, and tingling COMPARISON: March 2020 FINDINGS: Sagittal images show normal vertebral height. Alignment is normal. Marrow signal pattern is unremarkable. T12-L1: Unremarkable L1-2: Unremarkable L2-3: Unremarkable L3-4: Interval interbody fusion and laminectomy. No evidence of central canal stenosis. L4-5: Postoperative change without evidence of central canal stenosis or neural foraminal narrowing. L5-S1: Moderate annular disc bulge similar to prior. Moderate facet arthropathy. Borderline central canal stenosis. Moderate left and mild right neural foraminal narrowing, similar to prior. No abnormal contrast enhancement. IMPRESSION: Interval additional operative changes as described. No new abnormality or significant central canal stenosis. Reviewed, Interpreted and Dictated by Edison La MD Transcribed by Jerad Dias Authenticated and [facility]
== END ==
PROVIDERS: PCP Emergency Medicine; Visit Provider Emergency Medicine
DX: M54.9 Dorsalgia, unspecified (principal); M47.816 Spondylosis without myelopathy or radiculopathy, lumbar region; M54.50 Low back pain, unspecified
CPT/HCPCS: 72129; 72158; 76376; A9576; Q9967

== ENCOUNTER → 2022-07-14 11:10 | Outpatient (CLI) | payer BC, SELFPAY ==
[2022-07-14 15:07] LABS: Coronavirus 19, PCR Not Detected (NotDetected); Influenza A, PCR Not Detected (NotDetected); Influenza B, PCR Not Detected (NotDetected)
== END ==
PROVIDERS: PCP Emergency Medicine; Visit Provider Emergency Medicine
DX: R68.89 Other general symptoms and signs (principal)
CPT/HCPCS: C9803; U0003; U0005

== ENCOUNTER 2022-08-06 11:15 | Outpatient (CLI) | payer BC, SELFPAY ==
[2022-08-06 11:25] VITALS: BP 92/60; PULSE 68; RESP 18; TEMP 36.4; O2SAT 100
[2022-08-06 12:25] VITALS: BP 105/69; PULSE 64; RESP 18; O2SAT 99
[2022-08-06 13:25] VITALS: BP 114/69; PULSE 71; RESP 18; O2SAT 99
== END 2022-08-06 13:30 | disposition home or self-care (01) ==
LOC: INF 11:16
PROVIDERS: PCP Emergency Medicine; Visit Provider Emergency Medicine
DX: E86.0 Dehydration (principal)
CPT/HCPCS: 96360; 96361

== ENCOUNTER → 2022-08-06 14:52 | Outpatient (CLI) | payer BC, SELFPAY ==
[2022-08-06 14:12] LABS: Influenza A, PCR Not Detected (NotDetected); Influenza B, PCR Not Detected (NotDetected)
[2022-08-06 14:59] LABS: Coronavirus 19, PCR Detected (NotDetected)
== END ==
PROVIDERS: PCP Emergency Medicine; Visit Provider Emergency Medicine
DX: U07.1 COVID-19 (principal); R68.89 Other general symptoms and signs
CPT/HCPCS: C9803; U0003; U0005

== ENCOUNTER 2022-08-16 12:27 | Emergency (ER) | payer BC, SELFPAY ==
[2022-08-16 12:55] VITALS: BP 128/78; PULSE 86; RESP 18; TEMP 36.8; O2SAT 100; BMI 21.9
--- NOTE | 2022-08-16 13:05 | EXP.UTC ---
Discharge Plan Disposition Patient Disposition: Home, Self-Care Condition: Good Prescriptions Prescriptions: No Action ondansetron HCl 4 mg tablet 4 mg PO Q8H PRN (Reason: nausea and vomiting) Qty: 30 1RF gabapentin 800 mg tablet 800 mg PO TID Qty: 90 1RF hydrocodone-acetaminophen 5-325 mg tablet 1 tab PO TID PRN (Reason: pain) Qty: 90 0RF Paxlovid (EUA) 300 mg (150 mg x 2)-100 mg tablets,dose pack See Rx Instructions PO .COMPLEX Qty: 30 0RF Rx Instructions: take TWO 150 mg tablets of nirmatrelvir with ONE 100 mg tablet of ritonavir twice daily for 5 days PO duloxetine 30 MG capsule,delayed release(DR/EC) 30 mg PO DAILY Rx Instructions: TAKE 1 CAPSULE BY MOUTH AT BEDTIME tizanidine 4 mg tablet See Rx Instructions .ROUTE .COMPLEX Rx Instructions: TAKE TWO TABLETS BY MOUTH 3 TIMES A DAY pantoprazole [Protonix] 40 mg tablet,delayed release (DR/EC) 40 mg PO DAILY ropinirole 0.5 mg tablet See Rx Instructions .ROUTE .COMPLEX Rx Instructions: TAKE 1 TABLET BY MOUTH AT BEDTIME 1-3 HOURS BEFORE BEDTIME buspirone 10 mg tablet See Rx Instructions .ROUTE .COMPLEX Rx Instructions: TAKE 2 TABLETS BY MOUTH EVERY DAY FOR ANXIETY montelukast 10 mg tablet See Rx Instructions .ROUTE .COMPLEX Rx Instructions: TAKE 1 TABLET BY MOUTH DAILY fluticasone propion-salmeterol [Advair Diskus] 100-50 mcg/dose blister with device See Rx Instructions .ROUTE .COMPLEX Rx Instructions: INHALE 1 PUFF BY MOUTH TWICE A DAY FOR SHORTNESS OR AIR albuterol sulfate 90 mcg/actuation HFA aerosol inhaler See Rx Instructions .ROUTE .COMPLEX Rx Instructions: INHALE 1 PUFF 4 TIMES A DAY NEEDED FOR WHEEZING Referrals Follow up/Referrals: Ru Rand MD [Primary Care Provider] - See instructions Activity Restrictions/Add. Instructions Additional Instructions/Restrictions: *Monitor Temp, Over the counter Motrin or Tylenol as directed/as needed Tylenol every 4 hours and Motrin every 6 hours (as long as your family doctor has told you that you can take it) for fever or pain. and straight to ER if unable to lower temp less than 101.0 after medication given Follow up IMMEDIATELY for new or worsening symptoms or no Noticeable improvement over the next 48-72 hours. 911 for difficulty breathing or swallowing You were tested for today for COVID19 your test result should be back in the next 24-48 hours, you may check your results on the [facility] My Health Portal Clinical Impressions Clinical Impression: Encounter for laboratory testing for COVID-19 virus Instructions Patient Instructions: Preventing the Spread of Coronavirus Discharge Instructions Discharge ED Provider: Sparkle Chaudhary [facility] [place] HPI General Stated complaint: Covid+ 2/ Covid re-test Chest congestion headache Time Seen by Provider: 08/16/22 13:05 History of Present Illness Provider Complaint: Patient states that she tested positive for COVID on 08/08 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 States that she is feeling much better still having a little congestion and headache here and there and has finished her Paxlovid but didnt want to go around her mother until her COVID test was negative Related Data Home Medications Medication Instructions Recorded Confirmed duloxetine 30 mg capsule,delayed 30 mg PO DAILY Anxiety 02/01/22 08/06/22 release albuterol sulfate 90 mcg/actuation See Rx Instructions .Route 08/06/22 08/06/22 aerosol inhaler .COMPLEX COPD buspirone 10 mg tablet See Rx Instructions .Route 08/06/22 08/06/22 .COMPLEX Anxiety fluticasone 100 mcg-salmeterol 50 See Rx Instructions .Route 08/06/22 08/06/22 mcg/dose blistr powdr for .COMPLEX COPD inhalation (Advair Diskus) montelukast 10 mg tablet See Rx Instructions .Route 08/06/22 08/06/22 .COMPLEX Breathing problems pantoprazole 40 mg tablet,delayed 40 mg PO DAILY GERD 08/06/2208/06
[2022-08-16 13:15] VITALS: BP 128/78; PULSE 86; RESP 18; TEMP 36.8; O2SAT 100
== END 2022-08-16 13:23 | disposition home or self-care (01) ==
PROVIDERS: Emergency Provider Nurse Practitioner; PCP Emergency Medicine
DX: U07.1 COVID-19 (principal); R09.89 Other specified symptoms and signs involving the circulatory and respiratory systems; R51.9 Headache, unspecified
CPT/HCPCS: 99212; C9803; G0463; U0003; U0005

== ENCOUNTER → 2022-11-22 15:06 | Outpatient (CLI) | payer BC, SELFPAY ==
[2022-11-22 16:11] LABS: Basophils # 0.1 K/mm3 (0-0.2); Basophils % 0.9 % (0.1-2.0); Eosinophils # 0.2 K/mm3 (0.0-0.4); Eosinophils % 1.8 % (0.1-12.0); Hematocrit 43.1 % (37.0-47.0); Hemoglobin 14.1 g/dL (12.2-16.2); Lymphocytes # 2.7 K/mm3 (0.7-4.5); Lymphocytes % 33.5 % (10-50); Mean Corpuscular HGB Conc 32.7 g/dL (31.8-35.4); Mean Corpuscular Hemoglobin 30.6 pg (27.0-31.2); Mean Corpuscular Volume 93.6 fl (81-99); Mean Platelet Volume 8.8 fl (7.4-10.4); Monocytes # 0.4 K/mm3 (0.1-1.0); Monocytes % 5.1 % (1.7-9.3); Neutrophils # 4.7 K/mm3 (1.8-7.8); Neutrophils % 58.6 % (37.0-80.0); Platelet Count 216 K/mm3 (142-424); Red Blood Count 4.61 M/mm3 (4.20-5.40); Red Cell Distribution Width 13.2 % (11.5-17.5)
[2022-11-22 17:03] LABS: Alanine Aminotransferase 20 U/L (12-78); Albumin Level 4.1 g/dl (3.5-5.0); Albumin/Globulin Ratio 1.7 (1.1-1.8); Alkaline Phosphatase 87 U/L (38-126); Aspartate Amino Transferase 29 U/L (14-36); Bilirubin,Total 0.3 mg/dl (0.2-1.3); Blood Urea Nitrogen 15 mg/dl (7-17); Carbon Dioxide 29 mmol/L (22.0-30.0); Chloride 98 mmol/L (98-107); Cholesterol 192 mg/dl (140-200); Estimated Glomerular Filt Rate 65 ml/min (>60); GFR (African American) 79 ML/MIN (>60); Globulin 2.4 g/dL (1.3-3.2); Glucose 96 mg/dl (74-100); HDL Cholesterol 64 mg/dl (40-60); Sodium 140 mmol/L (136-145); Total Protein,Serum 6.5 g/dl (6.3-8.2); Triglycerides 105 mg/dl (30-150); VLDL Cholesterol 21 mg/dL (0-40)
[2022-11-22 17:14] LABS: Direct LDL Cholesterol 101.01 mg/dL (100-129)
[2022-11-22 17:18] LABS: Free T4 (Free Thyroxine) 1.01 ng/dl (0.78-2.19)
[2022-11-22 17:32] LABS: Thyroid Stimulating Hormone 0.55 uIU/mL (0.465-4.68)
[2022-11-22 17:51] LABS: Vitamin B12 251 pg/mL (239-931)
== END ==
PROVIDERS: PCP Emergency Medicine; Visit Provider Emergency Medicine
DX: F41.9 Anxiety disorder, unspecified (principal); J44.9 Chronic obstructive pulmonary disease, unspecified; L03.90 Cellulitis, unspecified; F17.200 Nicotine dependence, unspecified, uncomplicated
CPT/HCPCS: 36415; 80053; 80061; 82607; 84439; 84443; 85025

== ENCOUNTER → 2023-06-07 13:09 | Outpatient (CLI) | payer MEDICARE, BC, SELFPAY ==
--- NOTE | 2023-06-07 13:18 | XR_ITS ---
FINAL REPORT CLINICAL HISTORY: cracked ribs FINDINGS: 3 views of the left ribs were obtained. There are distal left fourth, fifth and sixth rib fractures. There is no pleural fluid collection or pneumothorax. A single view of the chest demonstrates no acute cardiopulmonary process. There are several small stones in the upper pole of the right kidney. IMPRESSION: Distal left fourth, fifth and sixth rib fractures without pneumothorax. Reviewed, Interpreted and Dictated by Gonzalo Medina III, MD Transcribed by Jerad Dias Authenticated and . [facility]
== END ==
PROVIDERS: PCP Internal Medicine; Visit Provider Internal Medicine
DX: R07.81 Pleurodynia (principal)
CPT/HCPCS: 71101

== ENCOUNTER → 2023-06-07 23:37 | Outpatient (CLI) | payer MEDICARE, BC, SELFPAY ==
[2023-06-08 10:58] LABS: 25-OH Vitamin D, Total 48.4 ng/mL (30-100)
[2023-06-08 11:13] LABS: Thyroid Stimulating Hormone 1.23 uIU/mL (0.465-4.68)
== END ==
PROVIDERS: PCP Internal Medicine; Visit Provider Internal Medicine
DX: N20.0 Calculus of kidney (principal); R07.81 Pleurodynia; E55.9 Vitamin D deficiency, unspecified; Z79.899 Other long term (current) drug therapy
CPT/HCPCS: 71101; 82306; 84443

== ENCOUNTER 2023-07-13 11:48 | Outpatient (CLI) | payer BC, MEDICARE, SELFPAY ==
[2023-07-13 15:36] LABS: Amphetamine/Metha Screen,Urine Negative ng/ml (<1000); Barbiturates Screen,Urine Negative ng/ml (<200); Benzodiazepines Screen,Urine Negative ng/ml (<200); Cannabinoid Screen,Urine Negative ng/ml (<50); Cocaine Screen,Urine Negative ng/ml (<300); Methadone Screen,Urine Negative ng/ml (<300); Opiate Screen,Urine Positive ng/ml (<300); Phencyclidine Screen,Urine Negative ng/ml (<25)
[2023-07-14 09:30] LABS: Influenza A, PCR Not Detected (NotDetected); Influenza B, PCR Not Detected (NotDetected)
[2023-07-14 10:04] LABS: Coronavirus 19, PCR Detected (NotDetected)
== END 2023-07-13 23:59 ==
PROVIDERS: PCP Internal Medicine; Visit Provider Internal Medicine
DX: Z79.899 Other long term (current) drug therapy (principal); Z20.822 Contact with and (suspected) exposure to COVID-19; U07.1 COVID-19
CPT/HCPCS: 80307; 87636

== ENCOUNTER 2023-12-25 11:39 | Emergency (ER) | payer MEDICARE, BC, SELFPAY ==
[2023-12-25 11:45] VITALS: BP 139/83; PULSE 55; RESP 18; TEMP 36.9; O2SAT 96; BMI 21.7
--- NOTE | 2023-12-25 12:05 | ED_ITS ---
Discharge Plan Disposition Patient Disposition: Home, Self-Care Condition: Good Prescriptions Prescriptions: No Action gabapentin 800 mg tablet 800 mg PO TID Qty: 90 2RF celecoxib 200 mg capsule 200 mg PO BID 60 Days Qty: 120 2RF albuterol sulfate 90 mcg/actuation HFA aerosol inhaler See Rx Instructions .ROUTE .COMPLEX Qty: 8.5 2RF Rx Instructions: INHALE 1 PUFF 4 TIMES A DAY NEEDED FOR WHEEZING fluticasone propion-salmeterol [Advair Diskus] 100-50 mcg/dose blister with device See Rx Instructions .ROUTE .COMPLEX Qty: 60 2RF Dose Instruction: INHALE 1 PUFF BY MOUTH TWICE A DAY FOR SHORTNESS OR AIR Rx Instructions: INHALE 1 PUFF BY MOUTH TWICE A DAY FOR SHORTNESS OR AIR ropinirole 0.5 mg tablet See Rx Instructions .ROUTE .COMPLEX Qty: 90 3RF Dose Instruction: TAKE 1 TABLET BY MOUTH AT BEDTIME 1-3 HOURS BEFORE BEDTIME Rx Instructions: TAKE 1 TABLET BY MOUTH AT BEDTIME 1-3 HOURS BEFORE BEDTIME duloxetine 30 mg capsule,delayed release(DR/EC) See Rx Instructions .ROUTE .COMPLEX Qty: 30 2RF Dose Instruction: TAKE 1 CAPSULE BY MOUTH ONCE DAILY AT BEDTIME FOR ANXIETY Rx Instructions: TAKE 1 CAPSULE BY MOUTH ONCE DAILY AT BEDTIME FOR ANXIETY tizanidine 4 mg tablet See Rx Instructions .ROUTE .COMPLEX Qty: 540 0RF Dose Instruction: TAKE 2 TABLETS BY MOUTH 3 TIMES A DAY Rx Instructions: TAKE 2 TABLETS BY MOUTH 3 TIMES A DAY montelukast 10 mg tablet See Rx Instructions .ROUTE .COMPLEX Qty: 90 0RF Dose Instruction: TAKE 1 TABLET BY MOUTH EVERY DAY Rx Instructions: TAKE 1 TABLET BY MOUTH EVERY DAY buspirone 15 mg tablet 15 mg PO BID Qty: 60 2RF hydrocodone-acetaminophen 7.5-325 mg tablet 1 tab PO Q8H PRN (Reason: pain) 30 Days Qty: 90 0RF Referrals Follow up/Referrals: Charles Díaz DO [Primary Care Provider] - See instructions Activity Restrictions/Add. Instructions Additional Instructions/Restrictions: No sign of a bacterial infection. Likely viral. Viruses can take 7-14 days to run their course. Nasal saline and bulb syringe or nose Vanessa to remove nasal drainage to help with nasal congestion. Hard to eat, drink, sleep with nasal congestion so important to keep this cleaned out. Monitor temp. Tylenol or Motrin as needed for pain or fever Encourage fluids, water, Gatorade, Powerade, Pedialyte if /toddler/child Warm salt water gargles Warm fluids Sore throat lozenges Sleep elevated Humidifier/vaporizer Follow-up immediately for new or worsening symptoms or no noticeable improvement over the next 48-72 hours. Clinical Impressions Clinical Impression: Upper respiratory infection Instructions Patient Instructions: DI for Viral Upper Respiratory Infection -- Adult Discharge ED Provider: Aldo ([facility])Deja [facility] [place] HPI General Stated complaint: congestion, dry cough Mode of Arrival: Ambulatory Source of Information: Patient Limitations: No Limitations Time Seen by Provider: 12/25/23 12:06 Description of Symptoms (Recalled from Triage Doc. by RN): Pt's symptoms are dry cough, chest congestion, and CORRIGAN. HEENT Symptoms (Recalled from RN notes): Yes Resp Symptoms (Recalled from RN notes): No Skin Symptoms (Recalled from RN notes): No MS Symptoms (Recalled from RN notes): No Functional Status (Recalled from RN notes): n/a History of Present Illness Provider Complaint: 53 yr old female presents for c/o dry cough, chest congestion, and CORRIGAN. Related Data Previous Rx's Medication Instructions Recorded albuterol sulfate 90 mcg/actuation See Rx Instructions .Route 04/01/23 aerosol inhaler .COMPLEX COPD #8.5 grams fluticasone 100 mcg-salmeterol 50 See Rx Instructions .Route 05/04/23 mcg/dose blistr powdr for .COMPLEX #60 ea inhalation (Advair Diskus) ropinirole 0.5 mg tablet See Rx Instructions .Route 05/25/23 .COMPLEX #90 tabs duloxetine 30 mg capsule,delayed See Rx Instructions .Route 09/26/23 release .COMPLEX #30 caps celecoxib 200 mg capsule 200 mg PO BID 60 days #120 caps 10/04/23 gabapentin 800 mg tablet 800 mg PO TID Pain #90 tabs 10/04/23 montelukast 10 mg tablet See Rx Instructions .Route 12/02/23 .COMPLEX #90 tabs tizanidine 4 mg tablet See Rx Instructions .Route 12/02/23 .COMPLEX #540 tabs buspirone 15 mg tablet 15 mg PO BID #60 tabs 12/05/23 hydrocodone 7.5 mg-acetaminophen 1 tab PO Q8H PRN pain 30 days #90 12/05/23 325 mg tablet tabs Allergies Allergy/AdvReac Type Severity Reaction Status Date / Time codeine Allergy Verified 12/25/23 11:58 Worker's Comp Is this a Worker's Comp case?: No [facility] Disclaimer: The information contained in this section may have been updated after the patient was seen, as this information can be updated by other users. Medical History , [employer]) Cervical radicular pain Back fracture Kidney stones Arthritis Chronic back pain Restless leg syndrome GERD (gastroesophageal reflux disease) COPD (chronic obstructive pulmonary disease) Anxiety Depression Surgical History , [employer]) H/O tubal ligation H/O myringotomy History of bilateral carpal tunnel release Family History , [employer]) No significant family history Social History , [employer]) Smoking Status: Current every day smoker tobacco type: cigarettes packs per day: 1 second hand exposure: Yes alcohol intake: never substance use type: denies use current occupational status: employed Travel in the last 8 weeks: None household members: none housing: house current occupation: [employer] current occupational exposures/hazards: No caffeine: Yes ROS Obtained: Yes All systems reviewed & no additional complaints except as documented Constitutional Constitutional: Reports system reviewed and no additional complaints, except as documented and Reports as per HPI Eyes Eyes: Reports system reviewed and no additional complaints, except as documented ENT Ears, Nose, Mouth, and Throat: Reports system reviewed and no additional complaints, except as documented, Reports as per HPI, Reports nasal congestion and Reports nasal discharge Cardiovascular Cardiovascular: Reports system reviewed and no additional complaints, except as documented Respiratory Respiratory: Reports system reviewed and no additional complaints, except as documented, Reports as per HPI, Reports cough and Reports non-productive cough Gastrointestinal Gastrointestingal: Reports system reviewed and no additional complaints, except as documented Musculoskeletal Musculoskeletal: Reports system reviewed and no additional complaints, except as documented Integumentary/Breasts Skin/Breast: Reports system reviewed and no additional complaints, except as documented Neurologic Neurologic: Reports system reviewed and no additional complaints, except as documented Endocrine Endocrine: Reports system reviewed and no additional complaints, except as documented Hematologic/Lymphatic Henatologic/Lymphatic: Reports system reviewed and no additional complaints, except as documented Allergic/Immunologic Allergic/Immunologic: Reports system reviewed and no additional complaints, except as documented Physical Exam General General appearance: alert and in no apparent distress Head Head exam: atraumatic Eye Eye exam: Present normal appearance and PERRL ENT ENT exam: Present mucous membranes moist and TM's normal bilaterally Expanded ENT Exam Throat exam: Present tonsillar erythema Respiratory Respiratory exam: Present normal lung sounds bilaterally Cardiovascular Cardiovascular exam: Present regular rate and normal rhythm Neurological Exam Neurological exam: Present alert and oriented X3 Skin Skin exam: Present warm and intact Medical Decision Making Medical Records Medical records reviewed: Yes I reviewed the patient's medical records. Christ Inquiry Pt receiving controlled substance: No Christ was queried for this patient: No Vital Signs: 12/25/23 11:45 Temperature 98.4 F Temperature Source Oral Pulse Rate [Right Radial] 55 L Respiratory Rate 18 Blood Pressure [Right Arm] 139/83 Blood Pressure Mean [Right Arm] 101 Blood Pressure Source [Right Arm] Automatic Cuff Blood Pressure Position [Right Arm] Sitting 02 Sat by Pulse Oximetry 96 Oxygen Delivery Method Room Air Lab Data Lab results reviewed: Yes I reviewed the patient's lab results.
[2023-12-25 12:25] LABS: UTC Strep Screen (Rapid) Negative (Negative)
--- NOTE | 2023-12-25 12:38 | PC.NURSE ---
Sent rapid to lab via tube system
[2023-12-25 12:39] VITALS: BP 139/83; PULSE 55; RESP 18; TEMP 36.9; O2SAT 96
[2023-12-25 12:39] LABS: Coronavirus 19, PCR Not Detected (NotDetected); Influenza A, PCR Not Detected (NotDetected); Influenza B, PCR Not Detected (NotDetected)
--- NOTE | 2023-12-27 10:20 | PC.NURSE ---
Reviewed strep confirmation culture is negative. No further action is required.
== END 2023-12-25 12:39 | disposition home or self-care (01) ==
PROVIDERS: Emergency Provider Nurse Practitioner Family; PCP Internal Medicine
DX: R05.9 Cough, unspecified (principal); R51.9 Headache, unspecified; J06.9 Acute upper respiratory infection, unspecified
CPT/HCPCS: 87636; 87880; 99212; 99214; G0463

== ENCOUNTER 2024-04-17 14:41 | Outpatient (CLI) | payer MEDICARE, BC, SELFPAY ==
--- NOTE | 2024-04-17 14:41 | CT_ITS ---
FINAL REPORT CLINICAL HISTORY: lung cancer screening CURRENT SMOKER, 3/4 PACK PER DAY X 40 YEARS COMPARISON: CT chest dated 04/01/2022 FINDINGS: Axial images were obtained from the lung apex to the mid abdomen by computed tomography. Low-dose protocol was utilized. CTDl vol(mGy): 2.90 DLP (mGy-cm): 111.25 FINDINGS: There is no axillary adenopathy. There is no hilar or mediastinal adenopathy. The heart size is normal. There is no pericardial or pleural effusion. Limited images of the upper abdomen demonstrate mucosal thickening in the distal esophagus. There are multiple nonobstructing stones in the right renal collecting system. Individual stones measure up to 5 mm. These appear similar to the previous exam.. Lung window images demonstrate no suspicious infiltrate or nodule. IMPRESSION: Lung RADS category 1S. Recommend 12 month follow-up low-dose chest CT. S qualifier: Mucosal thickening in the distal esophagus and multiple, nonobstructing right renal stones. Reviewed, Interpreted and Dictated by Juarez Billingsley MD Transcribed by Mary Carmen Yanez Authenticated and . [facility]
== END 2024-04-17 23:59 | disposition home or self-care (01) ==
LOC: RAD 14:41
PROVIDERS: PCP Internal Medicine; Visit Provider Internal Medicine
DX: Z87.891 Personal history of nicotine dependence (principal)
CPT/HCPCS: 71271

== ENCOUNTER 2024-05-28 10:40 | Day surgery (SDC) | payer MEDICARE, BC, SELFPAY ==
[2024-05-28] MEDS: LACTATED RINGERS 1000ML 1,000 ML 25 ML IV (11:16)
[2024-05-28 11:21] VITALS: BP 130/79; PULSE 75; RESP 18; TEMP 36.8; O2SAT 98; BMI 21.1
[2024-05-28 11:31] VITALS: O2SAT 98
--- NOTE | 2024-05-28 11:39 | EXP.HP ---
History of Present Illness *Admission Date: 05/28/24 *Reason for visit:: Screening *History of present illness: Mrs. Lamsa is a 54-year-old female who is here for screening colonoscopy. Her last colonoscopy was 10 years ago. The examination is deemed medically necessary for colonoscopy. The patient has been seen, interviewed and examined prior to the procedure by both myself and the anesthesia provider. [facility] Disclaimer: The information contained in this section may have been updated after the patient was seen, as this information can be updated by other users. Medical History (Updated 05/28/24 @ 11:42 by Benja Taylor II, MD) Cervical radicular pain Back fracture Kidney stones Arthritis Chronic back pain Restless leg syndrome GERD (gastroesophageal reflux disease) COPD (chronic obstructive pulmonary disease) Anxiety Depression Surgical History (Updated 05/28/24 @ 11:20 by Charles Ga RN) History of back surgery H/O tubal ligation H/O myringotomy History of bilateral carpal tunnel release Family History Other No significant family history Social History (Updated 05/28/24 @ 11:21 by Charles Ga RN) Smoking Status: Current every day smoker tobacco type: cigarettes packs per day: 1 second hand exposure: Yes alcohol intake: never substance use type: denies use current occupational status: employed and disabled household members: none housing: house current occupation: [employer] current occupational exposures/hazards: No caffeine: Yes Other Medical History Have you received the Flu Vaccine for this season: No Have you received the Pneumonia Vaccine: No Review of Systems Review of Systems Review of systems (narrative): Negative *Cardiovascular Comments: Negative *Gastrointestinal Comments: Negative *Genitourinary Comments: Negative *Musculoskeletal Comments: Negative *Neurologic Comments: Negative Meds Home Medications and Allergies Home Medications ?Medication ?Instructions ?Recorded ?Confirmed ?Type albuterol sulfate 90 mcg/actuation See Rx Instructions .Route 04/01/23 05/28/24 Rx aerosol inhaler .COMPLEX COPD #8.5 grams fluticasone 100 mcg-salmeterol 50 See Rx Instructions .Route 05/04/23 05/28/24 Rx mcg/dose blistr powdr for .COMPLEX #60 ea inhalation (Advair Diskus) buspirone 15 mg tablet See Rx Instructions .Route 02/27/24 05/28/24 Rx .COMPLEX #60 tabs celecoxib 200 mg capsule See Rx Instructions .Route 03/09/24 05/28/24 Rx .COMPLEX #60 caps montelukast 10 mg tablet See Rx Instructions .Route 03/12/24 05/28/24 Rx .COMPLEX #90 tabs duloxetine 30 mg capsule,delayed 30 mg PO DAILY 90 days #90 caps 03/29/24 05/28/24 Rx release gabapentin 800 mg tablet 800 mg PO TID Pain #90 tabs 03/29/24 05/28/24 Rx hydrocodone 7.5 mg-acetaminophen 1 tab PO TID PRN pain 30 days #90 03/29/24 05/28/24 Rx 325 mg tablet tabs hydrocodone 7.5 mg-acetaminophen 1 tab PO TID PRN pain 30 days #90 03/29/24 05/28/24 Rx 325 mg tablet tabs ropinirole 0.5 mg tablet 0.5 mg PO HS 90 days #90 tabs 03/29/24 05/28/24 Rx tizanidine 4 mg tablet 8 mg (2 x 4 mg) PO TID 90 days 03/29/24 05/28/24 Rx #540 tabs sodium,potassium,mag sulfates 17.5 See Rx Instructions PO .COMPLEX 05/21/24 05/28/24 Rx gram-3.13 gram-1.6 gram oral soln #354 mL (Suprep Bowel Prep Kit) New Prescriptions to Start Prescriptions: Allergies Allergy/AdvReac Type Severity Reaction Status Date / Time codeine Allergy Verified 03/29/24 09:40 Exam Data for Last 24 hours Vital signs and Labs for Last 24 Hours: Temp Pulse Resp BP Pulse Ox O2 Del Method 98.2 F 75 18 130/79 98 Room Air 05/28/24 11:21 05/28/24 11:21 05/28/24 11:21 05/28/24 11:21 05/28/24 11:21 05/28/24 11:21 I & O for Last 24 hours: Intake & Output 05/25/24 05/26/24 05/27/24 05/28/24 23:59 23:59 23:59 23:59 Weight 135 lb *Routine HEENT Exam Head: Present normocephalic Eye: Present EOMI and PERRL ENT: Present mucous membranes moist *Routine Neck Exam Neck: Present supple *Routine Respiratory Exam Respiratory: Present CTA bilaterally *Routine Cardiovascular Exam Cardiovascular: Present RRR *Routine Abdominal Exam Abdominal: Present soft and normoactive bowel sounds; Absent tenderness *Routine Rectal Exam Rectal:: deferred *Routine Genitalia Exam Genitalia:: deferred *Routine Extremities Exam Extremities: Absent cyanosis, clubbing or edema *Routine Skin Exam Skin: Present warm; Absent rash *Routine Neurological Exam Neurological: Present alert and oriented X3 Assessment and Plan *Assessment and plan (1) Screening for colon cancer: Status: Acute Category: Medical Code(s): Z12.11 - Encounter for screening for malignant neoplasm of colon Plan A/P: 1. Screening for colon cancer is the preprocedural diagnosis. The patient will be anesthetized/sedated using MAC sedation. The patient has been seen and examined. Cardiac and lung assessment prior to the examination is stable. Proceed with planned screening colonoscopy
--- NOTE | 2024-05-28 11:42 | P.PCN_ITS ---
[facility] Procedure Note Date: 05/28/24 Time: 12:03 Procedure Note:: Colonoscopy Procedure Report: Colonoscopy with cold snare polypectomy Endoscopist: Benja Taylor II, MD Referring physician: Charles Díaz DO Date of Procedure: May 28, 2025 Equipment: Olympus 190 variable stiffness pediatric colonoscope Sedation: MAC sedation Indication: Mrs. Lamas is a 54-year-old female who is here for screening colonoscopy. Her last colonoscopy was 10 years ago and she does state that a couple of benign polyps were removed. She reports no rectal bleeding, abdominal pain, weight loss or change in bowel habits. She reports no family history of colon cancer. She does have some chronic opioid-induced constipation and does take hydrocodone. Procedure: Prior to the procedure, a history and physical exam was performed, and patient's medications and allergies were reviewed. The risks, benefits and alternatives of the sedation and procedure were discussed with the patient. All questions were answered and informed consent was obtained. The patient was brought to the procedure room. Patient identification and proposed procedure were verified by the physician and the nurse. The patient was placed in a left lateral decubitus position and the scope was passed under direct vision. Throughout the procedure, the patient's blood pressure, pulse, and oxygen saturations were monitored continuously. The colonoscopy was accomplished without difficulty. The patient tolerated the procedure well. Findings: On digital rectal examination there was normal rectal tone. There were no external hemorrhoids. The colonoscope was introduced through the anal canal to the rectum and advanced to the cecum. The ileocecal valve and appendiceal orifice were identified. The scope was advanced a short distance into the ileum which appeared grossly normal. The scope was then withdrawn into the colon. There were 6 polyps (ascending x 3 (3, 3 and 4 mm), descending x 2 (4 and 4 mm) and sigmoid x 1 (8 mm)). These were all removed via cold snare polypectomy. The remaining cecum, ascending, transverse, descending, sigmoid and rectum were grossly normal. There were no other mucosal abnormalities identified. Upon retroflexion within the rectum there were grade 2 internal hemorrhoids.The prepa ration was excellent throughout with [place] Preparation Score of 9. The cecal time was 12 minutes. Impression: 1. Diminutive colonic polyps x 6 2. Grade 2 internal hemorrhoids Plan: I will follow-up the polyp histology and recommend surveillance based upon the pathology. I would consider initiation of treatment with Relistor or Movantik for her opioid-induced constipation.
[2024-05-28 12:05] VITALS: BP 81/49; PULSE 65; RESP 16; TEMP 36.3; O2SAT 96
[2024-05-28 12:15] VITALS: BP 87/54; PULSE 61; RESP 18; O2SAT 98
[2024-05-28 12:25] VITALS: BP 97/55; PULSE 62; RESP 18; O2SAT 98
[2024-05-28 12:35] VITALS: BP 98/52; PULSE 60; RESP 18; O2SAT 99
--- NOTE | 2024-05-28 14:46 | P.PNANES_ITS ---
[facility] Disclaimer: The information contained in this section may have been updated after the patient was seen, as this information can be updated by other users. Medical History (Updated 05/28/24 @ 12:06 by Benja Taylor II, MD) Cervical radicular pain Back fracture Kidney stones Arthritis Chronic back pain Restless leg syndrome GERD (gastroesophageal reflux disease) COPD (chronic obstructive pulmonary disease) Anxiety Depression Surgical History (Updated 05/28/24 @ 11:20 by Charles Ga RN) History of back surgery H/O tubal ligation H/O myringotomy History of bilateral carpal tunnel release Family History Other No significant family history Social History (Updated 05/28/24 @ 11:42 by eBnja Taylor II, MD) Smoking Status: Current every day smoker tobacco type: cigarettes packs per day: 1 second hand exposure: Yes alcohol intake: never substance use type: denies use current occupational status: employed and disabled Travel in the last 8 weeks: Inside the [place] household members: none housing: house current occupation: [employer] current occupational exposures/hazards: No caffeine: Yes [facility] Anesthesia Checklist Patient Identification Patient Identification: Arm Band Structural Data Admitted From: Home Planned Operative Procedure/s: Colonoscopy Consent for Planned Operative Procedure(s) Verified: Yes Verified Documents: Surgical Consent and History and Physical NPO Status Verified Time NPO: 00:00 Additional verifications Anesthesia Reactions: Yes (NAUSEA) Hx Blood Transfusions: No Blood Transfusion Reaction: No Airway Assessment Mallampati Score:: Class II C-Spine Mobility Assessed: Yes TMJ Mobility Assessed: Yes Neurological Assessment Level of Consciousness: Awake, Alert and Appropriate Anesthesia Plan Anesthesia Risk discussed: Yes Anesthesia Plan: Verified ASA Class: II Anesthesia Type: MAC
== END 2024-05-28 12:40 | disposition home or self-care (01) ==
PROVIDERS: PCP Internal Medicine; Visit Provider Internal Medicine Gastroenterology
PROC: (CPT 45385; principal; 2024-05-28 12:30)
DX: Z12.11 Encounter for screening for malignant neoplasm of colon (principal); K59.03 Drug induced constipation; Z86.0100 Personal history of colon polyps, unspecified; K63.5 Polyp of colon; K64.1 Second degree hemorrhoids
CPT/HCPCS: 45385; 88305; J7120

== ENCOUNTER 2024-12-12 09:15 | Outpatient (CLI) | payer MEDICARE, BC, SELFPAY ==
[2024-12-12 18:38] LABS: Basophils # 0.1 K/mm3 (0-0.2); Basophils % 0.7 % (0.1-2.0); Eosinophils # 0.3 Kmm3 (0.0-0.4); Eosinophils % 3.8 % (0.1-12.0); Hematocrit 40.9 % (37.0-47.0); Hemoglobin 12.7 g/dL (12.2-16.2); Immature Granulocytes # 0.01 10^3uL; Immature Granulocytes % 0.1 %; Lymphocytes # 2.6 K/mm3 (0.7-4.5); Lymphocytes % 31.6 % (10-50); Mean Corpuscular HGB Conc 31.1 g/dL (31.8-35.4); Mean Corpuscular Hemoglobin 29.3 pg (27.0-31.2); Mean Corpuscular Volume 94.2 fl (81-99); Mean Platelet Volume 11.3 fl (7.4-10.4); Monocytes # 0.5 K/mm3 (0.1-1.0); Monocytes % 6.1 % (1.7-9.3); Neutrophils # 4.7 K/mm3 (1.8-7.8); Neutrophils % 57.7 % (37.0-80.0); Nucleated Red Blood Cells # 0 10^3/uL; Nucleated Red Blood Cells % 0 %; Platelet Count 181 K/mm3 (142-424); Red Blood Count 4.34 M/mm3 (4.20-5.40); Red Cell Distribution Width-SD 44.9 fL; White Blood Count 8.1 K/mm3 (4.8-10.8)
[2024-12-12 19:00] LABS: Alanine Aminotransferase 16 U/L (12-78); Albumin Level 3.9 g/dl (3.5-5.0); Albumin/Globulin Ratio 1.9 (1.1-1.8); Alkaline Phosphatase 77 U/L (38-126); Anion Gap 7.2 mEq/L (5-15); Aspartate Amino Transferase 26 U/L (14-36); Bilirubin,Total 0.4 mg/dl (0.2-1.3); Blood Urea Nitrogen 14 mg/dl (7-17); Calcium 10.2 mg/dl (8.4-10.2); Carbon Dioxide 30 mmol/L (22.0-30.0); Chloride 103 mmol/L (98-107); Chol/HDL Ratio 4.3 (1-3.5); Cholesterol 190 mg/dl (140-200); Estimated Glomerular Filt Rate 65 ml/min (>60); GFR (African American) 79 ML/MIN (>60); Globulin 2.1 g/dL (1.3-3.2); Glucose 92 mg/dl (74-100); HDL Cholesterol 44 mg/dl (40-60); Potassium 4.2 mmoL/L (3.5-5.1); Sodium 136 mmol/L (136-145); Triglycerides 137 mg/dl (30-150); VLDL Cholesterol 27 mg/dL (0-40)
[2024-12-12 19:11] LABS: Direct LDL Cholesterol 94.81 mg/dL (100-129)
[2024-12-12 19:12] LABS: Hemoglobin A1C 5.3 % (4.0-6.0)
[2024-12-12 19:20] LABS: 25-OH Vitamin D, Total 51.9 ng/mL (30-100)
[2024-12-12 19:32] LABS: Thyroid Stimulating Hormone 1.74 uIU/mL (0.465-4.68)
--- OUTSIDE RECORDS SUMMARY | 2024-12-13 09:22 | XMS_ITS | Data Portability ---
Author Organization [facility] EL[facility] [place] [facility] Address [address] [place] [address] Care Team Providers Care Travel Cota Name Role Phone JUAN JOSE ROMERO Slasher Sawyer Assessment Encounter Date Assessment Date Assessment LastModified by Organization Details LastModified Time 04/05/2019 04/05/2019 Partially obstructing and symptomatic left UPJ stone. We discussed surgical options. She would like to proceed with cystoscopy and stone manipulation and left ESWL. The risks and benefits of procedure were discussed including bleeding, infection, incomplete stone fragmentation or need for further procedures. She voices understanding and agrees to proceed. KUB today. We will contact her for scheduling. Not available 04/05/2019 15:28:13 2020 2020 Nonobstructing right renal stones. We discussed that given the location of the stones, they're very unlikely to be the source of her discomfort. I recommended that she follow up with her PCP. I suspect her pain is musculoskeletal in origin. If this is further evaluated, we can consider treatment of her stones if no other etiology is present but it is unlikely that this would be helpful. We will check a KUB today. Not available 2020 08:44:30 Plan of Treatment Reminders Order Date Submit Date Provider Last Modified By Organization Details Last Modified Time Details Appointments None recorded. Lab urinalysi s, dipstick 2019 020 Not available 0 08:44:44 Referral None recorded. Procedures None recorded. Surgeries None recorded. Imaging None recorded. Medication Orders Floxin 0.3 % ear drops 2017 018 [email or web address] [id number], [address] [place], [address], 9 15:11:10 Otovel 0.3 %-0.025 % (0.25 mL) ear solution 2017 018 [email or web address] [facility][id number], [address] [place], [address], 8 09:25:34 Patient TargetsNo targets recorded. Patient Instructions Encounter Date Encounter Id Patient Instructions Last Modified By Organization Details Last Modified Time 04/05/2019 [id number] kidney stone: care instructions Not available 04/05/2019 15:28:19 2020 [id number] kidney stone: care instructions Not available 2020 08:44:44 learning about diet for kidney stone prevention Not available 2020 08:44:44 Reason for Referral None Reported. Results Created Date Observation Date Name Description Value Unit Range Abnormal Flag Note LastModifiedBy Organization Detail LastModifiedTime 03/04/2003/04/2020 urina lysis , dipst ick Unknown Analyte Yellow Not Available [facility] [address], [address], 2020 08:32:54 03/04/2003/04/2020 urina lysis , dipst ick Unknown Analyte Clear Not Available [facility] [address], [address], 2020 08:32:54 03/04/2003/04/2020 urina lysis , dipst ick Unknown Analyte 1.010 Not Available [facility] [address], [address], 2020 08:32:54 03/04/20 20 2020 urina lysis , dipst ick Unknown Analyte 1.003 - 1.035 Not Available [facility] [address] [place], [address], 2020 08:32:54 03/04/2003/04/2020 urina lysis , dipst ick Unknown Analyte 5.0 Not Available [facility] [address] [place], [address], 2020 08:32:54 03/04/2003/04/2020 urina lysis , dipst ick Unknown Analyte 5.0 - 8.0 Not Available [facility] [address] [place], [address], 2020 08:32:54 03/04/2003/04/2020 urina lysis , dipst ick Unknown Analyte Negati ve Not Available [facility] [address] [place] [address], [address], 2020 08:32:54 03/04/2003/04/2020 urina lysis , dipst ick Unknown Analyte Negati ve Not Available [facility] [address] [place], [address], 2020 08:32:54 03/04/2003/04/2020 urina lysis , dipst ick Unknown Analyte Negati ve Not Available [facility] [address] [place] [address], [address], 2020 08:32:54 03/04/2003/04/2020 urina lysis , dipst ick Unknown Analyte Negati ve Not Available [facility] [address] [place], [address], 2020 08:32:54 03/04/2003/04/2020 urina lysis , dipst ick Unknown Analyte Negati ve Not Available [facility] [address] [place], [address], 2020 08:32:54 03/04/2003/04/2020 urina lysis , dipst ick Unknown Analyte Negati ve - Trace Not Available [address], [address], 2020 08:32:54 03/04/2003/04/2020 urina lysis , dipst ick Unknown Analyte Normal Not Available [address], [address], 2020 08:32:54 03/04/2003/04/2020 urina lysis , dipst ick Unknown Analyte Normal Not Available [address], [address], 2020 08:32:54 03/04/2003/04/2020 urina lysis , dipst ick Unknown Analyte Negati ve Not Available [address], [address], 2020 08:32:54 03/04/2003/04/2020 urina lysis , dipst ick Unknown Analyte Negati ve Not Available [address], [address], 2020 08:32:54 03/04/2003/04/2020 urina lysis , dipst ick Unknown Analyte Normal Not Available [address], [address], 2020 08:32:54 03/04/2003/04/2020 urina lysis , dipst ick Unknown Analyte Normal - 1mg/dl Not Available [address], [address], 2020 08:32:54 03/04/2003/04/2020 urina lysis , dipst ick Unknown Analyte Negati ve Not Available [facility] [address] [place], [address], 2020 08:32:54 03/04/2003/04/2020 urina lysis , dipst ick Unknown Analyte Negati ve Not Available [facility] [address] [place] [address], [address], 2020 08:32:54 03/04/2003/04/2020 urina lysis , dipst ick Unknown Analyte Trace Not Available [facility] [address] [place] [address], [address], 2020 08:32:54 03/04/2003/04/2020 urina lysis , dipst ick Unknown Analyte Negati ve Not Available [facility] [address] [place] [address], [address], 2020 08:32:54 03/04/2003/04/2020 urina lysis , dipst ick Unknown Analyte Clean Catch Not Available [facility] [address] [place] [address], [address], 2020 08:32:54 03/04/2003/04/2020 urina lysis , dipst ick Unknown Analyte Automa narcisa Not Available [facility] [address], [address], 2020 08:32:54 04/06/2004/05/2019 XR, abdom en, [address] [place] [address] Patikarley t Name: SPARKLE farah : [birth year] Kedar farah Orderi ng Provid er: REGINA MELENDEZ OR EXAM DATE: 2018 EXAM: XR ABDOME N [facility] INFORM ATION: Abdomi nal pain. Urolit hiasis IMAGES PROVID ED: KUB AP radiog raphic images of the abdome n. COMPAR MARSHAL: 2015 FINDIN GS: No abnorm al intest inal gas patter n. Severa l tiny calcif icatio ns projec t in the upper right renal bed. There is also calcif icatio n to the left of L2 which may be in the left renal pelvis and this measur es roughl y 9 mm. No radiog raphic eviden ce of free intrap eriton eal air. IMPRES MARGY: Bilate ral urolit hiasis as noted Interp reted By: Charles Jaquez MD Electr onical ly Signed By: Charles Jaquez MD on 019 8:19 AM [facility] [address] [place], [address], 04/09/2019 09:18:52 03/04/2003/04/2020 XR, abdom en, [address] [place] [address] Patien t Name: SPARKLE NICOLE Patikarley t : [birth year] 68 Patien t Orderi ng Provid er: REGINA MELENDEZ OR EXAM DATE: 2019 EXAM: XR ABDOME N [facility] INFORM ATION: Histor y of urinar y tract stones . IMAGES PROVID ED: KUB AP radiog raphic images of the abdome n. COMPAR MARSHAL: 019 FINDIN GS AND IMPRES MARGY: Tiny 1 mm stones are seen in the upper portio n of the right kidney . They are stable . No other urinar y tract stone is noted. Surgic al hardwa re is seen in the lumbar spine. Tubal ligati on clips are noted in situ. No other signif icant abnorm ality. Interp reted By: Carola Adorno MD Electr onical ly Signed By: Carola Adorno MD on 03/04/20 9:22 AM [email or web address] [facility] [address] [place], [address], 2020 12:52:20 03/04/[address], abdom en + pelvi s, w/o contr ast No observ ation record ed. BARCODE Not Available 2019 16:46:33 Result Notes None recorded. Problems Name Problem SNOMED Code Status Onset Date Resolution Date Notes Provider Name and Address Organization Details Recorded Time Abdominal pain 74508313 Active 2015 Provider: Bibi Kirby;Sta tus: Active Not Available [facility] 6 04:59:00 Renal colic 3618035 Active 2015 From Automated Load;Provi sandra: Regina Stephenson;Sta tus: Active Not Available [facility] 6 04:59:00 Ureteric stone 28145640 Active 2015 From Automated Load;Provi sandra: Regina Stephenson;Sta tus: Active Not Available [facility] 6 04:59:00 Problem Notes None recorded. Procedures Surgical History Date Name Laterality Status Provider Name and Address Organization Details Recorded Time 04/13/20 19 EXTRA CORPOREAL SHOCK WAVE LITHOTRIPSY OF A URETERAL CALCULUS, WITH RETROGRADE URETEROPYELOGRAM , WITH STENT PLACEMENT (SURG) completed Jo-Ann [facility] 04/16/2019 07:31:16 02/23/20 18 Tympanostomy w/Tube, local completed JUAN JOSE ROMERO MD [address] [place] [address], [address], [facility] 02/22/2018 10:39:37 12/23/19 17 Tympanostomy w/Tube, local completed JUAN JOSE ROMERO MD [address] [place] [address], [address], [facility] 12/22/2016 08:35:07 12/02/19 17 Tympanogram completed [facility] 12/01/2016 09:14:46 11/13/19 17 Tympanogram completed [facility] 11/12/2016 13:32:32 11/04/19 17 Tympanogram completed MITALI SEGURA [address] [place] [address], [address], [facility] 11/03/2016 15:48:00 11/04/19 17 Tympanostomy w/Tube, local completed JUAN JOSE ROMERO MD [address] [place], [address], [facility] 11/03/2016 15:27:27 Imaging Results None recorded. Procedure Notes None recorded. Medical Equipment None Reported. Allergies Allergen ID Allergen Name Allergen Category Reaction Reaction Severity Criticality Documentation Date Start Date Code Code System Note Provider Name and Address Organization Details Recorded Time 488483 codeine medicatio n Not available Not available Not available 05/28/20162013 5360 RxNorm Comme nt: Creat ed By: Charles Grewal eated Date: 05/17 9:48: 15 AM; Not Available [facility] 6 10:17:37 Medications Name Sig Start Date Stop Date Status Note LastModified by Organization Details LastModified Time Floxin 0.3 % ear drops INSTILL 3 DROPS INTO AFFECTED EAR(S) BY OTIC ROUTE 2 TIMES PER DAY for 7 days 04/05 completed Not Available Not Available Not Available BuSpar 5 mg tablet Daily 04/05 completed Duration : 30 days;Vinny quency: daily;Me dication Descript ion: buspiron e; Dosage:1 ; Route:or al; refills: 0; Quantity :60 tablet Not Available Not Available Not Available Zofran 8 mg tablet active Medicati on Descript ion: ondanset daniel; Route:or al; refills: 0 Not Available Not Available Not Available Celebrex 100 mg capsule Take 1 capsule every day by oral route. active Not Available Not Available No t Available gabapenti n 800 mg tablet Take 1 tablet 3 times a day by oral route. active Not Available Not Available No t Available buspirone 10 mg tablet Two times a day 2015 active Frequenc y: bid;Medi cation Descript ion: buspiron e; Dosage:1 ; Route:or al; refills: 6; Quantity :60 tablet Not Available Not Available Not Available sertralin e 25 mg tablet Take 1 tablet every day by oral route. active Not Available Not Available No t Available Neurontin 400 mg capsule Bedtime 04/05 completed Instruct ions: 1 hs for nerve pain. May ^ q 7d if needed to 2 hs; 1 am, 2 hs; 2 am, 2 hs ;Frequen cy: hs;Medic ation Descript ion: gabapent in; Dosage:1 ; Route:or al; refills: 5; Quantity :30 capsule Not Available Not Available Not Available naproxen 500 mg tablet Take 1 tablet twice a day by oral route for 10 days. 2016 active Not Available Not Available Not Avai lable Ciprodex 0.3 %-0.1 % ear drops,arsen[employer] pension INSTILL 4 DROPS INTO AFFECTED EAR(S) BY OTIC ROUTE 2 TIMES PER DAY FOR 10 DAYS 08/08 completed Not Available Not Available Not Available 16.2 mg-0.1037 mg-0.0194 mg/5 mL oral elixir Every eight hours 04/05 completed Duration : 90 days;Ins truction s: 5ml q8h prn;Freq uency: q8h;Medi cation Descript ion: atropine /hyoscya mine/PB/ scopolam ine; Dosage:a s directed ; Route:or al; refills: 3; Quantity :360 elixir Not Available Not Available Not Available Miralax active Medicati on Descript ion: polyethy juancho glycol 3350; Route:or al; refills: 0 Not Available Not Available Not Available Align (B. is) 4 mg capsule Daily 04/05 completed Duration : 30 days;Vinny quency: daily;Me dication Descript ion: bifidoba cterium infantis ; Dosage:1 ; Route:or al; refills: 5; Quantity :30 capsule Not Available Not Available Not Available Otovel 0.3 %-0.025 % (0.25 mL) ear solution INSTILL 0.25 MILLILIT ER INTO AFFECTED EAR(S) EVERY 12 HOURS FOR 7 DAYS 02/22 completed Not Available Not Available Not Available Vitals Date Recorded Body height Body mass index (BMI) Body weight Heart rate Respiratory rate Systolic blood pressure Diastolic blood pressure Provider Name and Address Organization Details Last Updated DateTime 8 170.18 cm 19.6 kg/m2 33134.0 5 g 78 /min 16 /min 103 mm[Hg] 69 mm[Hg] Joselyn [facility] 8 08:44:33 Date Recorded Body height Body mass index (BMI) Body weight Heart rate Systolic blood pressure Diastolic blood pressure Provider Name and Address Organization Details Last Updated DateTime 8 170.18 cm 19.6 kg/m2 61007.0 5 g 62 /min 108 mm[Hg] 67 mm[Hg] Joselyn Carreon [facility] 8 09:25:02 Date Recorded Body height Body mass index (BMI) Body weight Provider Name and Address Organization Details Last Updated DateTime 2020 170.18 cm 19.6 kg/m2 96630.05 g Jo-Ann Romero [facility] 2020 08:32:37 Date Recorded Body weight Body mass index (BMI) Body height Provider Name and Address Organization Details Last Updated DateTime 04/05/2019 80881.05 g 19.6 kg/m2 170.18 cm Jo Maynard [facility] 04/05/2019 15:07:19 Social History Question Answer Notes LastModified by Organizat ion Details LastModified Time Tobacco Smoking Status Current Every Day [facility] 11/03/2016 15:19:03 What Was The Date Of Your Most Recent Tobacco Screening? 02/22/2018 Information n ot available 08/21/2019 How Much Tobacco Do You Smoke? 1 PPD Information not available 11/03/2016 How Many Years Have You Smoked Tobacco? 30 Information not available 11/03/2016 Sex: Unknown Functional Status None recorded. Mental Status None recorded. Family History Nothing Reported. Medical History No medical history recorded. Gynecological HistoryNo gynecological history recorded. Obstetrics History GPAL:G 0 P 0 0 0 0 Past Encounters Encounter ID Performer Location Encounter Start Date Encounter Closed Date Diagnosis/Indication Diagnosis SNOMED-CT Code Diagnosis ICD10 Code Diagnosis Note [id number] JUAN JOSE ROMERO MD [facility] [address] [place] [address] 11/03/2016 14:48:41 11/03/2016 16:31:41 Chronic eustachian tube salpingitis 810719091 H68.023 which has been helped by tubes in the past. She requested tubes again today. Performed without difficulty after audiogram reviewed. Follow-up in one month. Floxin otic. [id number] MITALI SEGURA [facility] [address] [place] [address] 1 11/03/2016 15:47:25 11/03/2016 17:10:51 Hearing examination 977594762 Z01.10 [id number] JUAN JOSE ROMERO MD [place] [address] 1 11/12/2016 13:06:44 11/12/2016 15:15:57 Chronic eustachian tube salpingitis 177880987 H68.023 which has been helped by tubes in the past. tubes replaced over a week ago. Was told the next day that she had an ear infection and was started on prednisone and Augmentin. Still symptomati c with fullness. Unfortunat fidel I don't see any infection but she has a perforatio n on the left side that is larger than the tube. I think the prednisone may have resulted in lack of sealing of the myringotom y over the tube. Audiogram performed and reviewed today. Shows mild CHL due to the tubes. Uncertain etiology for the symptoms. Since she did not get the floxin we called in I'll repeat that rx will be off work through December 01, 2016 Central pe rforation of tympanic membrane 47118845 H72.02 [id number] LANA LEE MITALI [facility] [place] [address] 1 11/12/2016 13:31:33 11/12/2016 17:35:32 Conductive hearing loss, bilateral 116397349 H90.0 [id number] JUAN JOSE ROMERO MD [facility] [place] [address] 1 12/01/2016 08:49:57 12/01/2016 10:34:39 Dysfunction of eustachian tube 65568129 H69.93 improved with tubes. Audiogram reviewed today. No longer has a perforatio n that is larger than the left tube. Both tubes look excellent. Follow-up in 6 months Allergic r hinitis caused by pollen 54894737 J30.1 present for quite some time and has symptoms greater than 6 months out of the year. Consult Dr. Green for an allergy evaluation [id number] LANA LEEMITALI [facility] [address] [place] [address] 1 12/01/2016 09:13:57 12/01/2016 10:05:56 Sensorineural hearing loss of bilateral ears 611876279 H90.3 [id number] JUAN JOSE ROMERO MD [facility] [place] [address] 1 12/22/2016 08:01:30 12/22/2016 08:54:51 Otalgia 84036523 H92.03 Left tube extruded and she requested I replace it with a t tube which was performed without difficulty . the right tube looks fine. Neither ear is infected. She has tmj tenderness and crepitus which could be the source of the pain. Naproxen. 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 Some improvemen t with naproxen. May have related to her recent dental work. I think she would benefit from a dental evaluation . She wants to observe for now. Follow-up as scheduled in 6 months Dysfunctio n of eustachian tube 27334737 H69.93 stable with tubes present bilaterall y. Clean. Dry [id number] JUAN JOSE ROMERO MD [facility] [place] [address] 1 05/09/2017 10:19:06 05/09/2017 12:41:38 Dysfunction of eustachian tube 98590331 H69.93 stable with tubes present bilaterall y. Clean. Dry. Was told the left tube was out but it looks fine. Follow-up 6 months [id number] JUAN JOSE ROMERO MD [facility] [place] [address] 1 07/25/2017 13:17:40 07/25/2017 14:23:39 Acute suppurative otitis media without spontaneous rupture of ear drum 82368955 H66.001 right ear. ciprodex. debrided. tube draining purulence. left tube looks fine. Follow-up 2 weeks [id number] JUAN JOSE ROMERO MD [facility] [place] [address] 1 08/08/2017 11:19:40 08/08/2017 12:06:05 Acute suppurative otitis media without spontaneous rupture of ear drum 42518798 H66.001 right ear. resolved with Ciprodex. Tube looks good. I think her fullness symptoms are due to middle ear swelling which should resolve with time. Follow-up in 6 weeks Chronic eu stachian tube salpingitis 996450650 H68.023 both tubes look good [id number] JUAN JOSE ROMERO MD [facility] [address] [place] [address] 1 11/11/2017 08:02:20 11/11/2017 09:03:00 Chronic eustachian tube salpingitis 643849646 H68.023 right tube has extruded and has a residual tympanic membrane perforatio n serving to ventilate the middle ear space. Observe. Left tube looks good. Follow-up 6 months Central pe rforation of tympanic membrane 51840797 H72.01 [id number] JUAN JOSE ROMERO MD [facility] [address] [place] [address] 1 01/10/2018 08:27:37 01/10/2018 09:02:45 Chronic eustachian tube salpingitis 671985430 H68.023 right tube has extruded and has a residual tympanic membrane perforatio n serving to ventilate the middle ear space which has decreased in size since the last visit but has an infection currently. Floxin otic. Left tube still looks good. Follow up to 3 weeks Central pe rforation of tympanic membrane 12924760 H72.01 Acute supp urative otitis media 715786896 H66.601 [id number] JUAN JOSE ROMERO MD [facility] [address] [place] [address] 1 02/08/2018 08:39:22 02/08/2018 09:04:07 Acute suppurative otitis media 125026993 H66.003 Right infected at the last visit. Has resolved with Floxin. Still has a small residual perforatio n serving to ventilate the middle ear space. Currently infected on the left with a draining T-tube. otovel. Central pe rforation of tympanic membrane 46459967 H72.01 [id number] JUAN JOSE ROMERO MD [facility] [address] [place] [address] 1 02/22/2018 09:11:46 02/22/2018 10:42:06 Central perforation of tympanic membrane 12981548 H72.01 resolved. Because of her eustachian tube dysfunctio n she elected to have another tube placed on the right side. Performed today. Tolerated well. Floxin otic. Follow-up in one month Dysfunctio n of bilateral eustachian tubes 3802332625 295262 H69.93 has required tubes for quite some time.audio gram reviewed today. Bilateral conductive loss present Acute supp urative otitis media 550288729 H66.003 resolved. T-tube looks good Conductive hearing loss, bilateral 872472530 H90.0 [id number] [place] [address] [place] [address] 1 02/22/2018 09:37:10 02/22/2018 15:53:58 Mixed conductive AND sensorineural hearing loss 54146488 H90.6 [id number] REGINA STEPHENSON MD [facility]OLOGY [facility] [address] [place] [address] 1 04/05/2019 14:47:58 04/05/2019 15:32:44 Ureteric stone 03229479 N20.1 [id number] REGINA STEPHENSON MD UROLOGY [facility] [address] [place] [address] 1 2020 08:22:35 2020 10:05:11 Kidney stone 60203883 N20.0 Health Concerns Section Related Observation LastModified by Organization Detai ls LastModified Time None Recorded Concern Status LastModified by Organization Details LastModified Time None Recorded Advance Directives Directive None Recorded Payers Insurance Date Sequence Insurance Name Policy Number Policy Peraza Covered Member ID Peraza Member ID Guarantor Name 2020 1 [place] [id number] Sparkle Johnt [id number] Sparkle Cloud Adams 05/28/2020 1 [place] [id number] Sparkle Cloud Adams [id number] pSarkle S Adams Notes Date Note Type Note Provider Name and Address Organization Details Recorded Time 02/08/2018 text/html Chief Complaint:otorrhea Timin day Duration:constant Location:As Severity:quite severe Quality: Context: Modifing Factors:Floxin otic completed Ad 4 infection a few weeks ago. No treatment for the current problem on the left Assoc Signs and Symptoms:Ad feels full, bloody drainage on the left,otalgia,heari ng decrease on the left, dizzy, no noise in ear JUAN JOSE ROMERO MD [address] [place] [address], [phone], [facility] 02/08/2018 08:57:10 02/22/2018 text/html Chief Complaint:f/u AOM Timing:few weeks Duration: Location:As Severity:was severe, now asymptomatic Quality: Context:has a perforation on the right after tube extruded. Has a T-tube on the left Modifing Factors:completed otovel and seems better. Assoc Signs and Symptoms:still has aural fullness/pressure, no otorrhea, some otalgia, intermittent ringing,hearing decrease JUAN JOSE ROMERO MD [address] [place] [address], [phone] [place] [address] 02/22/2018 10:40:41 02/22/2018 text/html Chief Complaint:f/u AOM Timing: Duration: Location:As Severity:improved Quality: Context: Modifing Factors:completed otovel, S/p T-Tubes in B/l ears Assoc Signs and Symptoms:aural fullness/pressure, no otorrhea, some otalgia, intermittent ringing,hearing decrease LANA LEE, MITALI [address] [place] [address], [phone], [facility] 02/22/2018 10:11:09 04/05/2019 text/html Mrs. Adams cloud comes in today for evaluation of a 7 mm left UPJ stone. She began experiencing back and flank pain several days ago. No fevers or chills. No dysuria. No gross hematuria. She has a history of nephrolithiasis. Her pain has been intermittent. REGINA STEPHENSON MD [address] [place] [address], [phone], [facility] 04/05/2019 15:28:37 2020 text/html Mrs. Adams return s today for follow-up. She has not been seen in almost a year. At that time she underwent left ESWL for a 9 mm UPJ stone. She reports right-sided low back pain for about the last week. This has been intermittent and increases with walking. No left-sided back or flank discomfort. No dysuria or hematuria. She had a CT scan done on February 27. REGINA STEPHENSON MD [address] [place], [address], [facility] 2020 08:44:56 OBGyn Episode No OBEpisode recorded.
--- OUTSIDE RECORDS SUMMARY | 2024-12-13 09:23 | XMS_ITS | Encounter Summary ---
Author Organization [employer] Address [address] [place] [address] Care Team Providers Care Master Black Belt Name Role Phone Unavailable Primary Care Provider Unavailabl e Encounter Details Date Type Department Care Team (Late st Contact Info) Description 04/13/2019 Transcribed Document [facility] [address] [place] [address] Provider, Denver Sheehan MD Social History Tobacco Use Types Packs/Day Years Used Date Smoking Tobacco: Never Assessed Comments Unknown Sex and Gender Information Value Date Recorded Sex Assigned at Female 12/31/2021 12:41 PM CDT Legal Sex Female 6:46 PM CDT Gender Identity Female 12/31/2021 12:41 PM CDT Sexual Orientation Not on file documented as of this encounter Miscellaneous Notes * Cerner Conversion Note - [facility] Aguila ProviderMD - 04/13/2019 12:00 PM EDT [facility] Main OR PACU Summary Primary Physician: REGINA BEAR MD-URO Finalized Date/Time: 04/13/19 13:10:40 Pt. Name: PANKAJ NICOLE DAVINA Vazquez/Sex: 1970 Female Med Rec #: [id number] Physician: REGINA BEAR MD-URO Financial #: [id number] Pt. Type: O Room/Bed: Admit/Disch: 04/13/19 07:43:00 - Institution: [facility] Main OR PACU I Case Times Entry 1 In PACU I 04/13/19 12:13:00 Ready for PACU 04/13/19 12:55:00 Discharge Discharge from PACU 04/13/19 12:55:00 I Last Modified By: GRIS HAINES, RN 04/13/19 13:07:39 [facility] Main OR PACU I Case Times Audit 04/13/19 13:07:39 Anthropology Department Chair: KELLIERIVER Modifier: BRANDEP <+> 1 Ready for PACU Discharge <+> 1 Discharge from PACU I Finalized By: GRIS HAINES, RN Document Signatures Signed By: GRIS HAINES RN 04/13/19 13:10 Electronically signed by Giancarlo [facility] Conversion Armhole Press[employer] Cerner at 11/24/2022 5:25 PM CDT documented in this encounter Plan of Treatment Not on file documented as of this encounter Visit Diagnoses Not on filedocumented in this encounter
--- OUTSIDE RECORDS SUMMARY | 2024-12-13 09:23 | XMS_ITS | Referral Summary ---
Author Organization [employer] Address [address] [place] [id number] Care Team Providers Care Excavating Machine Operator Name Role Phone Unavailable Primary Care Provider Unavailabl e Social History Tobacco Use Types Packs/Day Years Used Date Smoking Tobacco: Never Assessed Comments Unknown Sex and Gender Information Value Date Recorded Sex Assigned at Female 12/31/2021 12:41 PM CDT Legal Sex Female 6:46 PM CDT Gender Identity Female 12/31/2021 12:41 PM CDT Sexual Orientation Not on file Plan of Treatment Not on file
--- OUTSIDE RECORDS SUMMARY | 2024-12-13 09:23 | XMS_ITS | Encounter Summary ---
Author Organization [employer] Address [address] [place] [address] Care Team Providers Care Pediatrics Hospitalist Name Role Phone Unavailable Primary Care Provider Unavailabl e Encounter Details Date Type Department Care Team (Late st Contact Info) Description 04/13/2019 Transcribed Document [facility] [address] [place] [address] Provider, Denver Sheehan MD Social [...] Miscellaneous Notes * Cerner Conversion Note - Denver Gama MD - 04/13/2019 2:28 PM EDT Patient Education Materials Follows: General Anesthesia, Adult, Care After This sheet gives you information about how to care for yourself after your procedure. Your health care provider may also give you more specific instructions. If you have problems or questions, contact your health care provider. What can I expect after the procedure? After the procedure, the following side effects are common: ??? Pain or discomfort at the IV site. ??? Nausea. ??? Vomiting. ??? Sore throat. ??? Trouble concentrating. ??? Feeling cold or chills. ??? Weak or tired. ??? Sleepiness and fatigue. ??? Soreness and body aches. These side effects can affect parts of the body that were not involved in surgery. Follow these instructions at home: For at least 24 hours after the procedure: ??? Have a responsible adult stay with you. It is important to have someone help care for you until you are awake and alert. ??? Rest as needed. ??? Do not: ? Participate in activities in which you could fall or become injured. ? Drive. ? Use heavy machinery. ? Drink alcohol. ? Take sleeping pills or medicines that cause drowsiness. ? Make important decisions or sign legal documents. ? Take care of children on your own. Eating and drinking ??? Follow any instructions from your health care provider about eating or drinking restrictions. ??? When you feel hungry, start by eating small amounts of foods that are soft and easy to digest (bland), such as toast. Gradually return to your regular diet. ??? Drink enough fluid to keep your urine pale yellow. ??? If you vomit, rehydrate by drinking water, juice, or clear broth. General instructions ??? If you have sleep apnea, surgery and certain medicines can increase your risk for breathing problems. Follow instructions from your health care provider about wearing your sleep device: ? Anytime you are sleeping, including during daytime naps. ? While taking prescription pain medicines, sleeping medicines, or medicines that make you drowsy. ??? Return to your normal activities as told by your health care provider. Ask your health care provider what activities are safe for you. ??? Take omnp-xgg-vwbfvvd and prescription medicines only as told by your health care provider. ??? If you smoke, do not smoke without supervision. ??? Keep all follow-up visits as told by your health care provider. This is important. Contact a health care provider if: ??? You have nausea or vomiting that does not get better with medicine. ??? You cannot eat or drink without vomiting. ??? You have pain that does not get better with medicine. ??? You are unable to pass urine. ??? You develop a skin rash. ??? You have a fever. ??? You have redness around your IV site that gets worse. Get help right away if: ??? You have difficulty breathing. ??? You have chest pain. ??? You have blood in your urine or stool, or you vomit blood. Summary ??? After the procedure, it is common to have a sore throat or nausea. It is also common to feel tired. ??? Have a responsible adult stay with you for the first 24 hours after general anesthesia. It is important to have someone help care for you until you are awake and alert. ??? When you feel hungry, start by eating small amounts of foods that are soft and easy to digest (bland), such as toast. Gradually return to your regular diet. ??? Drink enough fluid to keep your urine pale yellow. ??? Return to your normal activities as told by your health care provider. Ask your health care provider what activities are safe for you. This information is not intended to replace advice given to you by your health care provider. Make sure you discuss any questions you have with your health care provider. Document Released: 09/26/2001 Document Revised: 02/03/2018 Document Reviewed: 02/03/2018 [employer] Interactive Patient Education ? 2019 [employer] Nephrology Lithotripsy, Care After This sheet gives you information about how to care for yourself after your procedure. Your health care provider may also give you more specific instructions. If you have problems or questions, contact your health care provider. What can I expect after the procedure? After the procedure, it is common to have: ??? Some blood in your urine. This should only last for a few days. ??? Soreness in your back, sides, or upper abdomen for a few days. ??? Blotches or bruises on your back where the pressure wave entered the skin. ??? Pain, discomfort, or nausea when pieces (fragments) of the kidney stone move through the tube that carries urine from the kidney to the bladder (ureter). Stone fragments may pass soon after the procedure, but they may continue to pass for up to 4?8 weeks. ? If you have severe pain or nausea, contact your health care provider. This may be caused by a large stone that was not broken up, and this may mean that you need more treatment. ??? Some pain or discomfort during urination. ??? Some pain or discomfort in the lower abdomen or (in men) at the base of the penis. Follow these instructions at home: Medicines ??? Take ablc-fvd-deitblr and prescription medicines only as told by your health care provider. ??? If you were prescribed an antibiotic medicine, take it as told by your health care provider. Do not stop taking the antibiotic even if you start to feel better. ??? Do not drive for 24 hours if you were given a medicine to help you relax (sedative). ??? Do not drive or use heavy machinery while taking prescription pain medicine. Eating and drinking ??? Drink enough water and fluids to keep your urine clear or pale yellow. This helps any remaining pieces of the stone to pass. It can also help prevent new stones from forming. ??? Eat plenty of fresh fruits and vegetables. ??? Follow instructions from your health care provider about eating and drinking restrictions. You may be instructed: ? To reduce how much salt (sodium) you eat or drink. Check ingredients and nutrition facts on packaged foods and beverages. ? To reduce how much meat you eat. ??? Eat the recommended amount of calcium for your age and gender. Ask your health care provider how much calcium you should have. General instructions ??? Get plenty of rest. ??? Most people can resume normal activities 1?2 days after the procedure. Ask your health care provider what activities are safe for you. ??? If directed, strain all urine through the strainer that was provided by your health care provider. ? Keep all fragments for your health care provider to see. Any stones that are found may be sent to a medical lab for examination. The stone may be as small as a grain of salt. ??? Keep all follow-up visits as told by your health care provider. This is important. Contact a health care provider if: ??? You have pain that is severe or does not get better with medicine. ??? You have nausea that is severe or does not go away. ??? You have blood in your urine longer than your health care provider told you to expect. ??? You have more blood in your urine. ??? You have pain during urination that does not go away. ??? You urinate more frequently than usual and this does not go away. ??? You develop a rash or any other possible signs of an allergic reaction. Get help right away if: ??? You have severe pain in your back, sides, or upper abdomen. ??? You have severe pain while urinating. ??? Your urine is very dark red. ??? You have blood in your stool (feces). ??? You cannot pass any urine at all. ??? You feel a strong urge to urinate after emptying your bladder. ??? You have a fever or chills. ??? You develop shortness of breath, difficulty breathing, or chest pain. ??? You have severe nausea that leads to persistent vomiting. ??? You faint. Summary ??? After this procedure, it is common to have some pain, discomfort, or nausea when pieces (fragments) of the kidney stone move through the tube that carries urine from the kidney to the bladder (ureter). If this pain or nausea is severe, however, you should contact your health care provider. ??? Most people can resume normal activities 1?2 days after the procedure. Ask your health care provider what activities are safe for you. ??? Drink enough water and fluids to keep your urine clear or pale yellow. This helps any remaining pieces of the stone to pass, and it can help prevent new stones from forming. ??? If directed, strain your urine and keep all fragments for your health care provider to see. Fragments or stones may be as small as a grain of salt. ??? Get help right away if you have severe pain in your back, sides, or upper abdomen or have severe pain while urinating. This information is not intended to replace advice given to you by your health care provider. Make sure you discuss any questions you have with your health care provider. Document Released: 07/09/2008 Document Revised: 05/11/2017 Document Reviewed: 05/11/2017 [employer] Interactive Patient Education ? 2019 [employer] documented in this encounter Plan of Treatment Not on file documented as of this encounter Visit Diagnoses Not on filedocumented in this encounter
--- OUTSIDE RECORDS SUMMARY | 2024-12-13 09:23 | XMS_ITS | Encounter Summary ---
Author Organization [email or web address] Address [address] [place] [address] Care Team Providers Care Television Journalist Name Role Phone Unavailable Primary Care Provider Unavailabl e Encounter Details Date Type Department Care Team (Late st Contact Info) Description 04/13/2019 Transcribed Document [facility] [address] [place] [address] Provider, Denver Sheehan MD Social [...] Miscellaneous Notes * Cerner Conversion Note - [facility] Aguila Gama MD - 04/13/2019 2:29 PM EDT [facility] [address] [place] [address] PANKAJ NICOLE :1970 Visit Time:04/13/2019 What to do next Your Diagnosis Calculus of kidney, Calculus of kidney Instructions From Your Care Team Diet after Discharge: Resume usual diet as tolerated, Do not drink any alcoholic beverages, Drink at least 8-10 glasses of water per day Fluid Restriction after Discharge: _ Activity after Discharge: As tolerated, Rest and relax today, No strenuous activity Lifting Restrictions: _ Weight Bearing: _ Bedrest: _ Driving after Discharge: Do not drive until 24 hours after no longer taking pain medications May Return to Work/School: Showering/Bathing: May shower, _ Notify Provider of: Wound/Incision Care after Discharge: _, _ Medical Equipment for Home Use: Home Health Services: Community Services: Follow-Up Appointments Follow Up with REGINA BEAR When Within 2 weeks Where: [address] [place] [address] [address] [facility] (1) Medications What How Much When Instructions Next Dose busPIRone (busPIRone 10 mg oral tablet) 1 Tablet(s) Oral Two Times A Day celecoxib 100 Milligram(s) Oral Every Day gabapentin (gabapentin 800 mg oral tablet) 1 Tablet(s) Oral Three Times A Day metroNIDAZOLE 500 Milligram(s) Oral Three Times A Day ondansetron (ondansetron 4 mg oral tablet, disintegrating) 1 Tablet(s) Oral Every 6 Hours polyethylene glycol 3350 (MiraLax oral powder for reconstitution) Oral Every Day sertraline 25 Milligram(s) Oral Every Day Take your medications faithfully. Do NOT skip medication. Do NOT stop taking medications without the direction of a physician. Carry a list of your medications with you at all times, and take this medication list with you to your first follow up visit. Report any side effects. Avoid herbal remedies unless discussed with your physician. As part of your treatment plan, your physician may have prescribed a limited course of a controlled substance. This medication may be given to help people with moderate or severe pain or for other medical conditions, but there are risks involved with treatment. Common side effects may include nausea, constipation, drowsiness, sweating, itching, dry mouth, and rash. More serious side effects may include cognitive and motor impairment, like problems with thinking, concentrating, alertness, and movement (e.g. slowed reflexes), and driving and operating heavy machinery can be dangerous. It is important for you to talk to your physician if you have these side effects or questions. These controlled substances can produce physical dependence and be habit-forming if taken for an extended period of time, which means that the body has gotten used to them and may experience withdrawal symptoms if they are abruptly stopped. Withdrawal symptoms can include runny nose, sweating, goose bumps, diarrhea, abdominal cramping, rapid heartbeat, difficulty sleeping, and nervousness. Please dispose of unused and medications per pharmacy guidance. Education Materials General Anesthesia, Adult, Care After This sheet [...] activities are safe for you. ??? Take wksc-pty-rsvxewf and prescription medicines only as told by [...] 09/26/2001 Document Revised: 02/03/2018 Document Reviewed: 02/03/2018 [employer] Patient Education ?? 2019 [employer] Lithotripsy, Care After This sheet gives you [...] may continue to pass for up to 4???8 weeks. ? If you have severe pain [...] these instructions at home: Medicines ??? Take msao-ifp-euosgaw and prescription medicines only as told by [...] ??? Most people can resume normal activities 1???2 days after the procedure. Ask your health [...] ??? Most people can resume normal activities 1???2 days after the procedure. Ask your health [...] 07/09/2008 Document Revised: 05/11/2017 Document Reviewed: 05/11/2017 [employer] Patient Education ?? 2019 [employer]. acetaminophen and hydrocodone (a SEET a MIN oh fen and sandra drolise KOE done) Hycet, Lorcet, Condon, Verdrocet, Vicodin, Xodol, Zamicet What is the most important information I should know about acetaminophen and hydrocodone? MISUSE OF OPIOID MEDICINE CAN CAUSE ADDICTION, OVERDOSE, OR . Keep the medication in a place where others cannot get to it. An overdose of acetaminophen can damage your liver or cause . Call your doctor at once if you have pain in your upper stomach, loss of appetite, dark urine, or jaundice (yellowing of your skin or eyes). Taking opioid medicine during may cause life-threatening withdrawal symptoms in the . Fatal side effects can occur if you use opioid medicine with alcohol, or with other drugs that cause drowsiness or slow your breathing. Stop taking this medicine and call your doctor right away if you have skin redness or a rash that spreads and causes blistering and peeling. What is acetaminophen and hydrocodone? Hydrocodone is an opioid pain medication, sometimes called a narcotic. Acetaminophen is a less potent pain reliever that increases the effects of hydrocodone. Acetaminophen and hydrocodone is a combination medicine used to relieve moderate to severe pain. Acetaminophen and hydrocodone may also be used for purposes not listed in this medication guide. What should I discuss with my healthcare provider before taking acetaminophen and hydrocodone? You should not use this medicine if you are allergic to acetaminophen or hydrocodone, or if you have: ?? severe asthma or breathing problems; or ?? a blockage in your stomach or intestines. Tell your doctor if you have ever had: ?? liver disease; ?? a drug or alcohol addiction; ?? kidney disease; ?? a head injury or seizures; ?? urination problems; or ?? problems with your thyroid, pancreas, or gallbladder. If you use opioid medicine while you are , your baby could become dependent on the drug. This can cause life-threatening withdrawal symptoms in the baby after it is born. Babies born dependent on opioids may need medical treatment for several weeks. Do not breast-feed. This medicine can pass into breast milk and cause drowsiness, breathing problems, or in a nursing baby. How should I take acetaminophen and hydrocodone? Follow all directions on your prescription label. Never take this medicine in larger amounts, or for longer than prescribed. An overdose can damage your liver or cause . Tell your doctor if the medicine seems to stop working as well in relieving your pain. Always check your bottle to make sure you have received the correct pills (same brand and type) of medicine prescribed by your doctor. Never share this medicine with another person, especially someone with a history of drug abuse or addiction. MISUSE CAN CAUSE ADDICTION, OVERDOSE, OR . Keep the medicine in a place where others cannot get to it. Selling or giving away acetaminophen and hydrocodone is against the law. Measure liquid medicine carefully. Use the dosing syringe provided, or use a medicine dose-measuring device (not a kitchen spoon). If you need surgery or medical tests, tell the doctor ahead of time that you are using this medicine. You should not stop using this medicine suddenly. Follow your doctor's instructions about tapering your dose. Store at room temperature away from moisture and heat. Keep track of your medicine. You should be aware if anyone is using it improperly or without a prescription. Do not keep leftover opioid medication. Just one dose can cause in someone using this medicine accidentally or improperly. Ask your pharmacist where to locate a drug take-back disposal program. If there is no take-back program, flush the unused medicine down the toilet. What happens if I miss a dose? Since this medicine is used for pain, you are not likely to miss a dose. Skip any missed dose if it is almost time for your next dose. Do not use two doses at one time. What happens if I overdose? Seek emergency medical attention or call the Poison Help line at . An overdose of acetaminophen and hydrocodone can be fatal. The first signs of an acetaminophen overdose include loss of appetite, nausea, vomiting, stomach pain, sweating, and confusion or weakness. Later symptoms may include pain in your upper stomach, dark urine, and yellowing of your skin or the whites of your eyes. Overdose can also cause severe muscle weakness, pinpoint pupils, very slow breathing, extreme drowsiness, or coma. What should I avoid while taking acetaminophen and hydrocodone? Avoid driving or operating machinery until you know how this medicine will affect you. Dizziness or drowsiness can cause falls, accidents, or severe injuries. Do not drink alcohol. Dangerous side effects or could occur. Ask a doctor or pharmacist before using any other medicine that may contain acetaminophen (sometimes abbreviated as APAP). Taking certain medications together can lead to a fatal overdose. What are the possible side effects of acetaminophen and hydrocodone? Get emergency medical help if you have signs of an allergic reaction: hives; difficulty breathing; swelling of your face, lips, tongue, or throat. Opioid medicine can slow or stop your breathing, and may occur. A person caring for you should seek emergency medical attention if you have slow breathing with long pauses, blue colored lips, or if you are hard to wake up. In rare cases, acetaminophen may cause a severe skin reaction that can be fatal. This could occur even if you have taken acetaminophen in the past and had no reaction. Stop taking this medicine and call your doctor right away if you have skin redness or a rash that spreads and causes blistering and peeling. Call your doctor at once if you have: ?? noisy breathing, sighing, shallow breathing; ?? a light-headed feeling, like you might pass out; ?? liver problems--nausea, upper stomach pain, tiredness, loss of appetite, dark urine, kavya-colored stools, jaundice (yellowing of the skin or eyes); or ?? low cortisol levels-- nausea, vomiting, loss of appetite, dizziness, worsening tiredness or weakness. Seek medical attention right away if you have symptoms of serotonin syndrome, such as: agitation, hallucinations, fever, sweating, shivering, fast heart rate, muscle stiffness, twitching, loss of coordination, nausea, vomiting, or diarrhea. Serious side effects may be more likely in older adults and those who are overweight, malnourished, or debilitated. Long-term use of opioid medication may affect fertility (ability to have children) in men or women. It is not known whether opioid effects on fertility are permanent. Common side effects include: ?? dizziness, drowsiness, feeling tired; ?? nausea, vomiting, stomach pain; ?? constipation; or ?? headache. This is not a complete list of side effects and others may occur. Call your doctor for medical advice about side effects. You may report side effects to FDA at 8-033-XYZ-7063. What other drugs will affect acetaminophen and hydrocodone? You may have breathing problems or withdrawal symptoms if you start or stop taking certain other medicines. Tell your doctor if you also use an antibiotic, antifungal medication, heart or blood pressure medication, seizure medication, or medicine to treat HIV or hepatitis C. Opioid medication can interact with many other drugs and cause dangerous side effects or . Be sure your doctor knows if you also use: ?? cold or allergy medicines, bronchodilator asthma/COPD medication, or a diuretic ('water pill'); ?? medicines for motion sickness, irritable bowel syndrome, or overactive bladder; ?? other narcotic medications--opioid pain medicine or prescription cough medicine; ?? a sedative like Valium--diazepam, alprazolam, lorazepam, Xanax, Klonopin, Versed, and others; ?? drugs that make you sleepy or slow your breathing--a sleeping pill, muscle relaxer, medicine to treat mood disorders or mental illness; ?? drugs that affect serotonin levels in your body--a stimulant, or medicine for depression, Parkinson's disease, migraine headaches, serious infections, or nausea and vomiting. This list is not complete. Other drugs may affect acetaminophen and hydrocodone, including prescription and exvz-ecx-kjhtuxc medicines, vitamins, and herbal products. Not all possible interactions are listed here. Where can I get more information? Your doctor or pharmacist can provide more information about acetaminophen and hydrocodone. Remember, keep this and all other medicines out of the reach of children, never share your medicines with others, and use this medication only for the indication prescribed. Every effort has been made to ensure that the information provided by [employer]. ('[employer]') is accurate, up-to-date, and complete, but no guarantee is made to that effect. Drug information contained herein may be time sensitive. [employer] information has been compiled for use by healthcare practitioners and consumers in the [place] and therefore [employer] does not warrant that uses outside of the [place] are appropriate, unless specifically indicated otherwise. [employer] drug information does not endorse drugs, diagnose patients or recommend therapy. [employer] drug information is an informational resource designed to assist licensed healthcare practitioners in caring for their patients and/or to serve consumers viewing this service as a supplement to, and not a substitute for, the expertise, skill, knowledge and judgment of healthcare practitioners. The absence of a warning for a given drug or drug combination in no way should be construed to indicate that the drug or drug combination is safe, effective or appropriate for any given patient. [employer] does not assume any responsibility for any aspect of healthcare administered with the aid of information [employer] provides. The information contained herein is not intended to cover all possible uses, directions, precautions, warnings, drug interactions, allergic reactions, or adverse effects. If you have questions about the drugs you are taking, check with your doctor, nurse or pharmacist. Copyright 1676-6994 [employer]. Version: 15.02. Revision Date: 05/08/2018. Emergency Awareness and Preventative Care STROKE is an EMERGENCY Every Minute Counts Act FAST and Check for these signs: FACE Does the face look uneven? ARM Does one arm drift down? SPEECH Does their speech sound strange? TIME Call at any sign of stroke Stroke Risk Factors Atrial Fibrillation (irregular heartbeat) Diabetes Family history of stroke Heart Disease Heavy alcohol use High Blood Pressure High Cholesterol Physical inactivity and obesity Smoking Cigarette Smoking The facts are clear, cigarette smoking will shorten your life. Smoking can cause many illnesses along the way. As a healthcare provider, we recommend that you stop smoking. Assistance with quitting is available by contacting 2-363-HXQHcWyzeNOW. This is a free resource providing counseling, support, and referral. Or you may contact your personal physician. National Suicide Prevention Lifeline: The National Suicide Prevention Lifeline is a national network of local crisis centers that provides free and confidential emotional support to people in suicidal crisis or emotional distress 24 hours a day, 7 days a week. Don't Wait! Stop a Heart Attack Before it Starts What is a heart attack? A heart attack is damage or to a part of the heart from severely decreased or lack of blood flow to the heart. Over time, arteries can become narrow from the buildup of fat and cholesterol, which is called plaque. The plaque can rupture causing a blood clot to form. When the blood clot forms, the artery can become severely narrowed or completely blocked, causing a heart attack. Heart attack is the leading cause of in the [place]. 85% of muscle damage occurs within the first 2 hours. Delay in the recognition of heart attack symptoms increases the chances of . Know the early symptoms of a heart attack: Nausea Feeling of fullness in chest Jaw Pain Pain that travels down one or both arms Fatigue/being tired Anxiety Back Pain Chest pressure, squeezing, or discomfort Shortness of breath Sweating, or a cold sweat Feeling of impending doom There are unusual signs of a heart attack, too! Women, the elderly, and diabetics may present with atypical symptoms: Fainting/dizziness Weakness Confusion Risk Factors for a Heart Attack Some heart disease risk factors, such as age and family history, cannot be changed. Others, like smoking and lack of exercise, can be changed. Smoking High Cholesterol High Blood Pressure Family History Obesity Age Gender (Males are at higher risk) Lack of Exercise Diabetes Diet Stress Excessive Alcohol Intake If you or someone you know is experiencing the signs and symptoms of a heart attack, DON???T DELAY. Call immediately and seek help. If someone collapses, perform CPR! Do not attempt to drive if you are having symptoms of heart attack. Hands-Only CPR Why Hands-Only CPR? Hands-Only CPR has been shown to be as effective as conventional CPR for cardiac arrests that occur outside of a hospital. Survival depends on immediately receiving CPR from someone nearby. How do you perform Hands-Only CPR? There are two easy steps: Call if you see a teen or adult collapse Push hard and fast in the center of the chest at a beat of 100 beats per minute. Save a life! 4 WAYS TO GET AHEAD OF SEPSIS SEPSIS is a MEDICAL EMERGENCY. Time matters! Infections put you and your family at risk for a life-threatening condition called sepsis. Sepsis is the body's extreme response to an infection. It is life-threatening, and without timely treatment, sepsis can rapidly lead to tissue damage, organ failure, and . Sepsis happens when an infection you already have-in your skin, lungs, urinary tract or somewhere else-triggers a chain reaction throughout your body. 1 PREVENT INFECTIONS Take good care of chronic conditions. Talk to your doctor about getting the recommended vaccines. 2 PRACTICE GOOD HYGIENE Wash your hands frequently. Keep cuts or open sores clean and covered until they are healed. 3 KNOW THE SYMPTOMS Confusion or disorientation Shortness of breath High heart rate Fever, shivering, or feeling very cold Extreme pain or discomfort Clammy or sweaty skin 4 ACT FAST Get medical care IMMEDIATELY if you suspect sepsis or if you have an infection that is not getting better or is getting worse. To learn more about sepsis and how to prevent infections, visit www.cdc.gov/sepsis. Test Results Laboratory or Other Results This Visit (last charted value for your 04/13/2019 visit) No Laboratory or Other Results This Visit Patient Name:PANKAJ NICOLE I have received this information and was given the opportunity to ask questions. Patient/Product Blending Supervisor Name: Patient/Product Blending Supervisor Signature: Relationship to Patient: Clinician/Hospital Product Blending Supervisor Signature: Date: documented in this encounter Plan of Treatment Not on file documented as of this encounter Visit Diagnoses Not on filedocumented in this encounter
--- OUTSIDE RECORDS SUMMARY | 2024-12-13 09:23 | XMS_ITS | Encounter Summary ---
Author Organization [employer] Address [address] [place] [address] Care Team Providers Care Photographs Curator Name Role Phone Unavailable Primary Care Provider Unavailabl e Encounter Details Date Type Department Care Team (Late st Contact Info) Description 04/13/2019 Transcribed Document [facility] [address] [place] [address] Provider, kerry Sheehan MD Social History Tobacco Use Types Packs/Day Years Used Date Smoking Tobacco: Never Assessed Comments Unknown Sex and Gender Information Value Date Recorded Sex Assigned at Female 12/31/2021 12:41 PM CDT Legal Sex Female 6:46 PM CDT Gender Identity Female 12/31/2021 12:41 PM CDT Sexual Orientation Not on file documented as of this encounter Miscellaneous Notes * Cerner Conversion Note - [facility] Aguila ProviderMD - 04/13/2019 12:00 PM EDT [facility] Main OR Preop Summary Primary Physician: REGINA BEAR MD-URO Finalized Date/Time: 04/13/19 14:49:46 Pt. Name: PANKAJ NICOLE DAVINA Vazquez/Sex: 1970 Female Med Rec #: [id number] Physician: REGINA BEAR MD-URO Financial #: [id number] Pt. Type: O Room/Bed: Admit/Disch: 04/13/19 07:43:00 - 04/13/19 13:45:00 Institution: [facility] PreOp Case Times Entry 1 In Preop 04/13/19 07:53:00 Ready for Holding n/a Room Patient Ready for 04/13/19 08:49:00 Surgery Patient Out of Preop 04/13/19 10:39:00 Patient Out of n/a Holding Room Last Modified By: EVANS Hansen RN 04/13/19 14:49:44 [facility] PreOp Case Times Audit 04/13/19 14:49:44 Manager Case Management: MORRIS Modifier: WILSONDL <+> 1 Patient Out of Preop 04/13/19 08:49:42 Manager Case Management: MORRIS Modifier: WILSONDL <+> 1 Patient Ready for Surgery Finalized By: EVANS Hansen RN Document Signatures Signed By: EVANS Hansen RN 04/13/19 14:49 Electronically signed by Giancarlo [facility] Conversion [employer]er Cerner at 11/24/2022 5:25 PM CDT documented in this encounter Plan of Treatment Not on file documented as of this encounter Visit Diagnoses Not on filedocumented in this encounter
--- OUTSIDE RECORDS SUMMARY | 2024-12-13 09:23 | XMS_ITS | Encounter Summary ---
Author Organization [employer] Address [address] [place] [address] Care Team Providers Care Multiplex Operator Name Role Phone Unavailable Primary Care Provider Unavailabl e Encounter Details Date Type Department Care Team (Late st Contact Info) Description 04/13/2019 Transcribed Document [facility] [address] [place] [address] Provider, kerry Sheehan MD Social [...] Miscellaneous Notes * Cerner Conversion Note - [facility] Aguila ProviderMD - 04/13/2019 12:00 PM EDT [facility] Main OR IntraOp Summary Primary Physician: REGINA BEAR MD-URO Finalized Date/Time: 04/16/19 10:09:25 Pt. Name: SPARKLE NICOLE DAVINA Paez./Sex: 1970 Female Med Rec #: [id number] Physician: REGINA BEAR MD-URO Financial #: [id number] Pt. Type: O Room/Bed: Admit/Disch: 04/13/19 07:43:00 - 04/13/19 13:45:00 Institution: [facility] IntraOp Case Attendance Entry 1 Entry 2 Entry 3 Case Attendee REGINA BEAR, YANG STAPLES, MARYELLEN ALVES MD-ANS -URO Role Performed Surgeon/Proceduralist, PRODUCTION LINE/Nurse Tube Closing Machine Operator Anesthesiologist of First Record Time In 04/13/19 10:42:00 04/13/19 10:42:00 04/13/19 10:42:00 Time Out 04/13/19 12:11:00 04/13/19 12:11:00 04/13/19 12:11:00 Procedure ESWL/Stone ESWL/Stone ESWL/Stone Manipulation/Cysto(Left) Manipulation/Cysto(Left) Manipulation/Cysto(Left) Other Attendee Superficial Wound REGINA BEAR, Closed By: -URO Last Modified By: Lauren Hughes, Lauren Candelaria RN Poff, Janie, RN 04/13/19 12:11:39 04/13/19 12:11:39 04/13/19 12:11:39 Entry 4 Entry 5 Entry 6 Case Attendee Lauren Hughes RN TODD, JUDY Madden, Jerrild Role Performed Communications Assistant, First Scrub, First Plant Taxonomist Time In 04/13/19 10:42:00 04/13/19 10:42:00 04/13/19 10:42:00 Time Out 04/13/19 12:11:00 04/13/19 11:09:00 04/13/19 12:11:00 Procedure ESWL/Stone ESWL/Stone ESWL/Stone Manipulation/Cysto(Left) Manipulation/Cysto(Left) Manipulation/Cysto(Left) Other Attendee Superficial Wound Closed By: Last Modified By: Lauren Hughes RN Poff, Janie, RN Poff, Janie, RN 04/13/19 12:11:39 04/13/19 12:11:39 04/13/19 12:11:39 Entry 7 Entry 8 Case Attendee TAMIKO GAONA MD Parker, Katherine, AP Role Performed Resident Communications Assistant, Second Time In 04/13/19 10:42:00 04/13/19 11:08:00 Time Out 04/13/19 12:11:00 04/13/19 11:38:00 Procedure ESWL/Stone ESWL/Stone Manipulation/Cysto(Left) Manipulation/Cysto(Left) Other Attendee RELIEF Superficial Wound Closed By: Last Modified By: Lauren Hughes RN Poff, Janie, RN 04/13/19 12:11:39 04/13/19 12:11:39 [facility] IntraOp Case Attendance Audit 04/13/19 12:11:39 Machine Load Clerk: BRIAN Modifier: BRIAN 1 <+> Time Out 1 <*> Procedure ESWL/Stone Manipulation/Cysto(Left) 2 <+> Time Out 2 <*> Procedure ESWL/Stone Manipulation/Cysto(Left) 3 <+> Time Out 3 <*> Procedure ESWL/Stone Manipulation/Cysto(Left) 4 <+> Time Out 4 <*> Procedure ESWL/Stone Manipulation/Cysto(Left) 5 <*> Procedure ESWL/Stone Manipulation/Cysto(Left) 6 <+> Time Out 6 <*> Procedure ESWL/Stone Manipulation/Cysto(Left) 7 <+> Time Out 7 <*> Procedure ESWL/Stone Manipulation/Cysto(Left) 8 <*> Procedure ESWL/Stone Manipulation/Cysto(Left) 04/13/19 11:38:43 Machine Load Clerk: LUIS ENRIQUE Modifier: BRIAN 3 <*> Role Performed Anesthesiologist 3 <*> Procedure ESWL/Stone Manipulation/Cysto(Left) 3 <-> Other Attendee SUPERVISIOR 8 <+> Time Out 8 <*> Procedure ESWL/Stone Manipulation/Cysto(Left) 04/13/19 11:19:08 Machine Load Clerk: LUIS ENRIQUE Modifier: LUIS ENRIQUE 1 <*> Procedure ESWL/Stone Manipulation/Cysto(Left) 2 <+> Time In 2 <*> Procedure ESWL/Stone Manipulation/Cysto(Left) 3 <+> Time In 3 <*> Procedure ESWL/Stone Manipulation/Cysto(Left) 4 <+> Time In 4 <*> Procedure ESWL/Stone Manipulation/Cysto(Left) 5 <+> Time In 5 <*> Procedure ESWL/Stone Manipulation/Cysto(Left) 6 <+> Time In 6 <*> Procedure ESWL/Stone Manipulation/Cysto(Left) 7 <+> Time In 7 <*> Procedure ESWL/Stone Manipulation/Cysto(Left) <+> 8 Case Attendee <+> 8 Role Performed <+> 8 Time In <+> 8 Procedure <+> 8 Other Attendee [facility] IntraOp Case Times Entry 1 Patient In Room Time 04/13/19 10:42:00 Out Room Time 04/13/19 12:11:00 Anesthesia Start Time 04/13/19 10:42:00 Stop Time 04/13/19 12:11:00 Surgery / Procedure Times Start Time 04/13/19 11:00:00 Stop Time 04/13/19 11:57:00 Last Modified By: Lauren Hughes RN 04/13/19 12:11:35 [facility] IntraOp Case Times Audit 04/13/19 12:11:35 Machine Load Clerk: BRIAN Modifier: POFFJAN <+> 1 Out Room Time <+> 1 Stop Time 04/13/19 11:57:32 Machine Load Clerk: LUIS ENRIQUE Modifier: POFFJAN <+> 1 Stop Time [facility] IntraOp Communication Entry 1 Communication To Family/Significant other Comment START OF PROCEDURE Communication By Lauren Hughes RN Date and Time 04/13/19 11:11:00 Last Modified By: Lary Sotelo RN 04/13/19 11:14:44 [facility] IntraOp Departure from OR Entry 1 Integumentary Assessment Integumentary WDL Assessment WDL Transfer/Handoff Transfer to PACU Phase I Handoff Method Bedside/Face to face, Phone call Post-op Transport Ramirez/Lorraine Via Patient Transport YANG STAPLES CRNA, Accompanied by TAMIKO GAONA MD Last Modified By: Lary Sotelo RN 04/13/19 11:18:21 [facility] IntraOp Fire Risk Assessment Entry 1 Fire Info Surgical Site or 0- No Incision Above the Xyphoid Open O2 Source 1- Yes (Mask or Cannula) Available Ignition 1- Yes (ESU, Laser, Light Source) Fire Risk 2 Assessment Score Fire Score Fire Risk Yes Assessment Complete Fire Risk Lauren Hughes RN Assessment Verified By Fire Risk 04/13/19 10:44:00 Assessment Verified Date/Time Fire Risk Standard Fire Yes Safety Precautions Followed Last Modified By: Lary Sotelo RN 04/13/19 11:19:25 [facility] IntraOp General Case Wet Suit Gluer 1 Case Information OR OR 19 [facility] Case Level 1 Room Verified Yes Wound Class III - Contaminated Specialty SN Urology Anesthesia Type General ASA Class 2 Diagnosis Preop Diagnosis LEFT RENAL STONE Postop Same As Preop Yes Postop Diagnosis LEFT RENAL STONE Last Modified By: Lauren Hughes RN 04/13/19 11:37:52 [facility] IntraOp General Case Data Audit 04/13/19 11:37:52 Machine Load Clerk: LUIS ENRIQUE Modifier: BRIAN 1 <*> Preop Diagnosis LEFT RNAL STONE 1 <*> Postop Diagnosis LEFT RNAL STONE 04/13/19 11:29:08 Machine Load Clerk: LUIS ENRIQUE Modifier: LUIS ENRIQUE 1 <*> Wound Class II - Clean-Contaminated 1 <+> Postop Same As Preop 1 <+> Postop Diagnosis [facility] IntraOp Intraoperative Assessment Entry 1 Valid History / Yes Physical in Chart Preoperative Yes Checklist Reviewed/Evaluated Allergies Reviewed Yes Patient is Latex No Sensitive Isolation Contact Precautions Noted Level of WDL Consciousness (WDL = Alert, Oriented to Person, Place, and Time) Skin Assessment No Verified Present Upon IVs Arrival to OR Last Modified By: Lary Sotelo RN 04/13/19 11:21:06 [facility] IntraOp Intraoperative Equipment Entry 1 Type Equipment Equipment Equipment Other ID Number [id number] [id number] Intraop Monitoring Antiembolic Devices Scopes Photo/Video Documentation Last Modified By: Lary Sotelo RN 04/13/19 11:23:58 [facility] IntraOp Medication Admin Entry 1 Entry 2 Entry 3 Medication/Irrigant BAG CYSTO [id number] LUB SURGLUB JELLY Normal Saline 0.9% FLIPCAP [id number] 1000ml irrigation - [id number] Combo Med List Time Administered Route of TOPICAL IRRIGATION Administration Dose Dose 600 Unit of Measure ml Volume Administered By TAMIKO GAONA MD STARK, TIMOTHY, MD Procedure Irrigation Irrigant Volume In Irrigant Volume Out Last Modified By: Lary Sotelo RN Parker, Katherine, RN Parker, Katherine, RN 04/13/19 11:26:49 04/13/19 11:26:49 04/13/19 11:26:49 Entry 4 Entry 5 Entry 6 Medication/Irrigant lidocaine 2% urojet fentanyl 1000mcg/20ml - Sterile Water 1500ml 10ml jelly - [id number] irrigation --[id number] Combo Med List Time Administered Route of TOPICAL IN BASIN Administration Dose Dose Unit of Measure ml Volume Administered By TAMIKO GAONA MD THOMPSON, BRUCE, CRNA STARK, TIMOTHY, MD Procedure Irrigation Irrigant Volume In Irrigant Volume Out Last Modified By: Lary Sotelo RN Parker, Katherine, RN Parker, Katherine, RN 04/13/19 11:26:49 04/13/19 11:26:49 04/13/19 11:26:49 [facility] IntraOp Patient Positioning Entry 1 Procedure ESWL/Stone Manipulation/Cysto(Left) Body Position Lithotomy Left Arm Position Tucked and padded at side Right Arm Position Tucked and padded at side Left Leg Position Secured in Leg Peraza Right Leg Position Secured in Leg Peraza Position Comments PRESSURE POINTS PADDED Feet Uncrossed Yes Pressure Points Yes Checked Positioning Devices Head Rest, Table, Cysto, Pad, Elbow, Stirrups/Leg Peraza, Cysto Device Position SUPINE AFTER CYSTO WITH LEG WEDGE UNDER KNEES AND PILLOW UNDER FEET/ANKLES Positioned By REGINA BEAR MD-URO, Lauren Hughes RN, Nirali Howell, YANG STAPLES, JOSÉ, TAMIKO GAONA MD Position Verified Positioning Yes Verified by Anesthesia Positioning Yes Verified by Surgeon Last Modified By: Lary Sotelo RN 04/13/19 11:27:37 [facility] IntraOp Sign In Entry 1 Patient, Site, Yes Procedure Identified Surgical Consent Yes Confirmed Relevant Surgical Yes Documents Available Surgical Site Yes Marked by person performing procedure Anesthesia Machine Yes Check Completed Medication Checks Yes Completed Allergies Yes Airway Difficult Yes Airway/Aspiration Risk Difficult Yes Airway/Aspiration Intervention Equipment Available Blood Loss Risk Yes Blood Loss Yes Intervention Equipment Prepared and Ready Blood Identifiers Not applicable Verified Per Policy Hypothermia Risk Yes Warming Measures Yes Taken Last Modified By: Lary Sotelo RN 04/13/19 11:27:52 [facility] IntraOp Sign Out Entry 1 RN Confirmation Surgical Yes Procedure(s) Identified Instrument, Sponge N/A and Sharps Counts Correct/Documented Equipment Problems N/A Documented Specimen Labeled N/A Correctly Urinary Catheter N/A Documented in IView Gu[place]ardo Patient Yes Recovery Concerns Reviewed with Anesthesia Provider, Surgeon and RN Gu[place]ardo Patient Yes Management Concerns Reviewed with Anesthesia Provider, Surgeon and RN Safety Checklist Yes Elements Complete? RN Sign Out Lauren Hughes, AP Signature RN Sign Out 04/13/19 11:57:00 Signature Date/Time Plan of Care Outcome - Fire Risk OUTCOME STATEMENT: Goal met Patient is free from injury related to surgical fire Plan of Care Outcome - Pt Positioning OUTCOME STATEMENT: Goal met Absence of signs and symptoms of positioning injury. Plan of Care Outcome - Skin Prep OUTCOME STATEMENT: Goal met Intraoperative care is consistent with measures to prevent infection Plan of Care Outcome - Xray/Images OUTCOME STATEMENT: Goal met Absence of observable signs or symptoms of radiation injury Plan of Care Outcome - Counts OUTCOME STATEMENT: Goal met Absence of signs and symptoms of injury related to extraneous objects Last Modified By: Lauren Hughes RN 04/13/19 11:57:46 [facility] IntraOp Sign Out Audit 04/13/19 11:57:46 Machine Load Clerk: LUIS ENRIQUE Modifier: BRIAN <+> 1 RN Sign Out Signature Date/Time [facility] IntraOp Skin Prep Entry 1 Procedure ESWL/Stone Manipulation/Cysto(Left) Prescribed N/A Pre-Surgical Prep Completed Prep Area genitalia Intraop Prep Integumentary WDL Assessment WDL Prep Agents Betadine spray Prep by Lauren Hughes RN Hair Removal Methods No hair removal performed Last Modified By: Lary Sotelo RN 04/13/19 11:28:22 [facility] IntraOp Surgical Procedures Entry 1 Procedure ESWL/Stone Manipulation/Cysto Modifiers Left Additional (LT ESWL WITH CYSTO, LT Procedure STONE MANIPULATION) Description Primary Procedure Yes Primary Surgeon REGINA BEAR MD-URO Start 04/13/19 11:00:00 Stop 04/13/19 11:57:00 Anesthesia Type General Specialty SN Urology Wound Class III - Contaminated Last Modified By: Lauren Hughes RN 04/13/19 11:57:38 [facility] IntraOp Surgical Procedures Audit 04/13/19 11:57:38 Machine Load Clerk: LUIS ENRIQUE Modifier: BRIAN <+> 1 Stop [facility] IntraOp Temp Regulation Devices Entry 1 Temp Regulation Temperature Warm blankets, Forced Regulation Device Air Warming device Temperature Upper body Regulation Site Temperature monitored per Regulation Comment anesthesia, antoinette la available Last Modified By: Lary Sotelo RN 04/13/19 11:29:15 [facility] IntraOP Time Out Entry 1 Procedure to be ESWL/Stone Performed Manipulation/Cysto(Left) Time Out Time Out Pause Time 04/13/19 11:00:00 All activity Yes suspended (unless life threatening emergency) Team Verbally Correct patient Confirms Information identity, Correct side and site are marked, Consent form is present and accurate, Agreement on the procedure to be done, Correct patient position, Relevant images/results properly labeled/appropriately displayed, Confirm antibiotics have been administered, Confirm the skin prep has dried, Confirm prosthesis/implant/devic e is present, Performed in location of procedure after prepped/draped Antibiotic Yes Prophylaxis Administered Or In Progress Within the Last 60 Minutes Beta Weston N/A Administered Venous N/A Thromboembolism Prophylaxis Required Anticipated Critical Events Surgeon None expected Anesthesia Provider None expected Nursing Assures Sterility of instruments, Equipment concerns or issues, Implant Availability Essential Imaging N/A Labeled and Displayed Last Modified By: Lary Sotelo, AP 04/13/19 11:30:32 Case Comments <None> Finalized By: LAUREEN MACKENZIE Document Signatures Signed By: Lauren Hughes RN 04/13/19 12:11 LAUREEN MACKENZIE 04/16/19 10:09 Unfinalized History Date/Time Username Reason for Unfinalizing Freetext Reason for Unfinalizing 04/16/19 10:08 IRVIN Correct Billing documented in this encounter Plan of Treatment Not on file documented as of this encounter Visit Diagnoses Not on filedocumented in this encounter
--- OUTSIDE RECORDS SUMMARY | 2024-12-13 09:23 | XMS_ITS | Clinical Summary ---
Author Organization Healthcare Address [address] [place] [address] Care Team Providers Care Key Entry Operator Name Role Phone Ru Rand MD Primary Care Provider [phone] Allergies Active Allergy Reactions Criticality Noted Date Comments Codeine Other - please docum ent in the comment field,Nausea,Unknown - Patient states they do not know rxn details Low 10/06/2009 Medications albuterol 108 (90 Base) MCG/ACT inhaler INHALE 1 PUFF 4 TIMES A DAY NEEDED FOR WHEEZING 2 Active Symbicort 80-4.5 MCG/ACT inhaler 2 Active busPIRone (Buspar) 10 MG tablet TAKE 2 TABLETS BY MOUTH EVERY DAY FOR ANXIETY 3 Active celecoxib (CeleBREX) 100 MG capsule 1 capsule 1 (one) time each day. 0 Active Ciprofloxacin-F luocinolone PF (Otovel) 0.3-0.025 % solution Otic suspension Otovel 0.3 %-0.025 % (0.25 mL) ear solution INSTILL 0.25 MILLILITER INTO AFFECTED EAR(S) BY OTIC ROUTE EVERY 12 HOURS FOR 7 DAYS Active DULoxetine (Cymbalta) [address] capsule TAKE 1 CAPSULE BY MOUTH EVERYDAY AT BEDTIME 3 Active Advair Diskus 100-50 MCG/ACT diskus inhaler 3 Active gabapentin (Neurontin) 800 MG tablet every 8 (eight) hours. 0 Active HYDROcodone-abel taminophen ([place]) 5-325 MG tablet 3 Active montelukast (Singulair) 10 MG tablet Take 10 mg by mouth 1 (one) time each day. 2 Active ondansetron (Zofran) 8 MG tablet Zofran 8 mg tablet Active rOPINIRole (Requip) 0.5 MG tablet TAKE 1 TABLET BY MOUTH AT BEDTIME 1-3 HOURS BEFORE BEDTIME 3 Active sertraline (Zoloft) 25 MG tablet 1 (one) time each day. Active tiZANidine (Zanaflex) 4 MG tablet TAKE TWO TABLETS BY MOUTH 3 TIMES A DAY 3 Active Family History Medical History Relation Name Comments Alzheimer's disease Father Conversions - Other Father hearing problem Menorrhagia Father Alzheimer's disease Mother COPD Mother Relation Name Status Comments Father Mother Social History Tobacco Use Types Packs/Day Years Used Date Smoking Tobacco: Every Day Cigarettes Smokeless Tobacco: Never Tobacco Cessation:Ready to Q uit: Not Asked; Counseling Given: Not Answered Alcohol Use Standard Drinks/Week Comments Never 0 (1 standard drink = 0.6 oz pur e alcohol) Comments Unknown Sex and Gender Information Value Date Recorded Sex Assigned at Not on file Legal Sex Female 7:46 PM EDT Gender Identity Not on file Sexual Orientation Not on file Last Filed Vital Signs Vital Sign Reading Time Taken Comments Blood Pressure 96/72 08/24/2022 9:52 AM EST Pulse 76 07/26/2018 1:17 PM EST Temperature 36.9 C (98.4 F) 08/12/2020 8:50 AM EST Respiratory Rate - - Oxygen Saturation - - Inhaled Oxygen Concentration - - Weight 62.5 kg (137 lb 12.8 oz) 08/24/2022 9:52 AM EST Height 170.2 cm (5' 7 ) 08/24/2022 9:52 AM EST Body Mass Index 21.58 08/24/2022 9:52 AM EST Plan of Treatment Health Maintenance Due Date Last Done Comments [facility]-Depression Screening 1970 [facility]-HIV Screening 1970 [facility]-Hepatitis C Screening 1970 [facility]-Infant/Child/Adol SDOH Screenings 1970 [facility]- SDOH Screenings 1987 [facility]-Adult SDOH Screenings 1987 [facility]-DTaP,Tdap,and Td Vaccine s (1 - Tdap) 1988 [facility]-Hepatitis B Vaccines (1 of 3 - 19+ 3-dose series) 1988 [facility]-Pap Smear 1990 [facility]-Cervical Cancer Screening 1999 [facility]-HPV/Cotest 1999 CT Colonography 2014 Colonoscopy 2014 FIT-DNA 2014 FIT 2014 FOBT 2014 Sigmoidoscopy 2014 [facility]-Colorectal Cancer Screening 2014 [facility]-Breast Cancer Screening 2019 [facility]-Pneumococcal Vaccine: 50 + Years (1 of 1 - PCV) 2019 [facility]-Zoster Vaccines (1 of 2) 2019 [id number] Vaccine ( - 20 24-25 season) 2024 [facility]-Influenza Vaccine (Seas[place] n Ended) 2025 2020 HPV Vaccines Aged Out No longer eligi ble based on patient's age to complete this topic [facility]-HIB Vaccines Aged Out No longer e ligible based on patient's age to complete this topic [facility]-Hepatitis A Vaccines Aged Out No longer eligible based on patient's age to complete this topic [facility]-IPV Vaccines Aged Out No longer e ligible based on patient's age to complete this topic [facility]-Rotavirus Vaccines Aged Out No lo nger eligible based on patient's age to complete this topic [place] [address] [place] [address] Care Teams Key Entry Operator Relationship Specialty Start Date End Date Ru Rand MD [address] [place] [address] PCP - General 12/24/20
--- OUTSIDE RECORDS SUMMARY | 2024-12-13 09:23 | XMS_ITS | Encounter Summary ---
Author Organization [employer] Address [address] [place] [address] Care Team Providers Care Ell Teacher Name Role Phone Unavailable Primary Care Provider Unavailabl e Encounter Details Date Type Department Care Team (Late st Contact Info) Description 04/13/[address] [facility] [address] [place] [address] Provider, [place] Sheehan MD Social [...] Miscellaneous Notes * Cerner Conversion Note - [facility] Agu[place] ProviderMD - 04/13/2019 12:00 PM EDT [facility] Main OR PostOp Summary Primary Physician: REGINA BEAR MD-URO Finalized Date/Time: 04/13/19 13:45:46 Pt. Name: PANKAJ NICOLE DAVINA Vazquez/Sex: 1970 Female Med Rec #: [id number] Physician: REGINA BEAR MD-URO Financial #: [id number] Pt. Type: O Room/Bed: Admit/Disch: 04/13/19 07:43:00 - Institution: [facility] Main OR PostOp Case Times Entry 1 In PACU II 04/13/19 12:58:00 Ready for PACU II 04/13/19 13:45:00 Discharge Discharge from PACU 04/13/19 13:45:00 II Last Modified By: PANKAJ ORTA, RN 04/13/19 13:45:44 [facility] Main OR PostOp Case Times Audit 04/13/19 13:45:44 Ski Base Trimmer: KOTA Modifier: JUAN MYBETH <+> 1 Ready for PACU II Discharge <+> 1 Discharge from PACU II Finalized By: PANKAJ ORTA, RN Document Signatures Signed By: PANKAJ ORTA RN 04/13/19 13:45 Electronically signed by Giancarlo [facility] Conversion Assistant Shift Supervisor Cerner at 11/24/2022 5:25 PM CDT documented in this encounter Plan of Treatment Not on file documented as of this encounter Visit Diagnoses Not on filedocumented in this encounter
--- OUTSIDE RECORDS SUMMARY | 2024-12-13 09:23 | XMS_ITS | Clinical Summary ---
Author Organization [employer] Address [address] [place] [address] Care Team Providers Care Family Dinner Service Specialist Name Role Phone Unavailable Primary Care Provider [...]
--- OUTSIDE RECORDS SUMMARY | 2024-12-13 09:23 | XMS_ITS | Encounter Summary ---
Author Organization [employer] Address [address] [place] [address] Care Team Providers Care Clearance Coordinator Name Role Phone Unavailable Primary Care Provider Unavailabl e Encounter Details Date Type Department Care Team (Late st Contact Info) Description 04/13/2019 Transcribed Document [facility] [address] [place] [address] Provider, Denver Sheehan MD Social [...] Notes * Cerner Conversion Note - Denver Sheehan ProviderMD - 04/13/2019 9:34 AM EDT PAT Adult Entered On: 04/13/2019 8:38 EDT Performed On: 04/13/2019 8:34 EDT by EVANS Hansen RN Height and Weight, Clinical Dosing Height Source : Measured Height Entry Format : Sellers Height, Feet : 5 ft(Converted to: 152 cm, 60 Inch) Height, Inches : 7 Inch(Converted to: 0 ft 7 Inch, 17.78 cm) Clinical Height : 170.18 cm Weight Source : Standing scale Weight Entry Format : Sellers Clinical Dosing Weight : 57.09 kg Weight, Pounds : 125.6 lb Body Surface Area (BSA) : 1.66 m2 Body Mass Index : 19.7 kg/m2 Mays Body Weight : 61 kg EVANS Hansen RN - 04/13/2019 8:34 EDT Health Histories Smoking Status : 10 or more cigarettes (1/2 pack or more)/day in last 30 days Smokeless Tobacco Status : Never Desires Tobacco Cessation Medication : No Reason for No Tobacco Cessation Medication : Refuses FDA approved medications EVANS Hansen RN - 04/13/2019 8:34 EDT Social History (As Of: 04/13/2019 08:38:30 EDT) Tobacco: Use in Last 12 Months: Cigarettes. Smoking Status Current every day smoker. Years of Use: 35. Packs/Tins Daily: 0.5. Tobacco Use/Smoking within Last 30 Days Yes. (Last Updated: 11/18/2015 15:32:54 EDT by MIGUEL ROBERTO, RN) Alcohol: Alcohol Use History No. (Last Updated: 04/13/2019 08:34:02 EDT by EVANS Hansen, RN) Substance Abuse: Drug Use Hx: No. Use in Last 12 Months: No. (Last Updated: 04/13/2019 08:34:06 EDT by EVANS Hansen, RN) Infectious Disease History Infectious Disease History : C-Difficile, Chicken pox/Shingles Fever/Chills Last 48 Hours : No Travel To Regions with Travel Advisories : No Travel Outside [place].S[place] Within Last 30 Days : No Contact With Traveler to Advisory Region : No Exposure to Contagious Illness : No Tuberculosis Symptoms : Fatigue EVANS Hansen RN - 04/13/2019 8:34 EDT Anesthesia/Transfusion History Family History of Anesthesia Reaction : No prior transfusion(s) Transfusion History : Prior anesthesia reaction Type of Anesthesia Reaction : Excessive nausea/vomiting Family History of Anesthesia Reaction : None EVANS Hansen RN - 04/13/2019 8:34 EDT Advance Directive Patient has Advance Directive *Q : No, patient refuses Advance Directive information EVANS Hansen RN - 04/13/2019 8:34 EDT Psychosocial History Do You Have a History of the Following? : Anxiety, Depression Currently in Unsafe Situation : No Tried to Harm Yourself in the Past? : No Thoughts of Harming/Killing Yourself : No EVANS Hansen RN - 04/13/2019 8:34 EDT General Info Preferred Name : Maggi Arrived From : Home Mode of Arrival on Unit : Ambulatory Patient Arrival Date/Time : 04/13/2019 7:53 EDT Legal Guardian : Sibling Support Person/Pt Rep Name : Ellenmaira Masterson Contact Password : [phone] Support Person/Pt Rep Contact Information : sister Want Family/Rep/Phys Notified of Admit : No Emergency Contact #1 : ` Emergency Contact #1 Phone Number : ` Emergency Contact #1 Relationship : ` Emergency Contact #2 : ` Emergency Contact #2 Phone Number : ` Emergency Contact #2 Relationship : ` Primary Language : Korean Communication Barrier : None EVANS Hansen RN - 04/13/2019 8:34 EDT Martinez Scale Martinez Sensory Perception : No impairment Martinez Moisture : Rarely moist Martinez Activity : Walks frequently Martinez Mobility : Slightly limited Martinez Nutrition : Probably inadequate Martinez Friction and Shear : Potential problem Martinez Score : 19 EVANS Hansen RN - 04/13/2019 8:34 EDT Sleep Apnea Risk Assmt Hx of Obstructive Sleep Apnea Diagnosis : No Snore Loudly : No Tired, Fatigued, or Sleepy During Day : Yes Observed Stopping Breathing During Sleep : No Have/Are Being Treated for Hypertension : No BMI Greater Than 35 kg/m2 : No Age over 50 Years Old : Yes Neck Circumference Greater Than 40 cm : No Gender Male : No STOP-BANG Sleep Apnea Risk Level Score : 2 EVANS Hansen RN - 04/13/2019 8:34 EDT Electronically signed by Denver Mondragon Conversion Aeronautical Engineering Technologist Cerner at 11/24/2022 5:25 PM CDT documented in this encounter Plan of Treatment Not on file documented as of this encounter Visit Diagnoses Not on filedocumented in this encounter
--- OUTSIDE RECORDS SUMMARY | 2024-12-13 09:23 | XMS_ITS | Encounter Summary ---
Author Organization [employer] [facility] [place] [employer] Address [address] [place] [address] Care Team Providers Care Vp Site Name Role Phone Unavailable Primary Care Provider Unavailabl e Encounter Details Date Type Department Care Team (Late st Contact Info) Description 04/13/2019 Transcribed Document [facility] Radiology [address] [place] [address] Provider, Denver Sheehan MD Social [...] Note - Denver Gama MD - 04/13/2019 12:51 PM EDT DATE OF PROCEDURE:04/13/2019 PREOPERATIVE DIAGNOSIS(ES): Left ureteral stone. POSTOPERATIVE DIAGNOSIS(ES): Left ureteral stone. PROCEDURE: 1. Cystoscopy with left stone manipulation. 2. Left extracorporeal shock wave lithotripsy. 3. Fluoroscopic guidance. SURGEON: John Stephenson MD BATTERYMAN: Ziggy Hammond M.D. (R) ANESTHESIA: General. FINDINGS: The stone was present in the proximal ureter. It was pushed into the renal pelvis. Good stone fragmentation was noted fluoroscopically. ESTIMATED BLOOD LOSS: None. DRAIN: None. SPECIMEN: None. COMPLICATIONS: None. DISPOSITION: Stable to Recovery. INDICATIONS: Ms. Lamas is a 49-year-old female, who presented with left-sided back and flank pain secondary to a 9 mm obstructing proximal ureteral stone. She wishes to undergo shock wave lithotripsy. Risks and benefits were discussed including bleeding, infection, risks of anesthesia, risk of injury to urethra, bladder, ureter, or kidney. She voices understanding and agrees to proceed. OPERATIVE DESCRIPTION: After informed consent was obtained and perioperative antibiotics were administered, the patient was brought to the operating room, placed in supine position on the operating table. After general anesthesia was induced, she was placed in lithotomy position. Her genitalia were prepped and draped in the usual sterile surgical fashion. After time-out had been performed, the 22-Lao cystoscope was lubricated, inserted into the urethra and advanced in the bladder. Bladder was inspected. No evidence of stones or tumors were noted. A 0.035 Glidewire was used to cannulate the left ureteral orifice. The wire was passed in a retrograde fashion. The stone was engaged and pushed into the renal pelvis. The wire was removed, the bladder was drained, and the cystoscope was removed. She was taken out of the lithotomy position and repositioned in the supine position over the lithotripsy head. Using fluoroscopy, the stone was placed at the focal point of the lithotripter. 100 shocks were administered at 18 kV followed by a pause. A total of 2400 shocks were administered with a maximum energy of 24 kV with good stone fragmentation noted. She was awakened and transferred in stable condition to Recovery. There were no immediate complications. John Stephenson M.D. Dict: 04/13/2019 11:51:27 Trans: 04/13/2019 14:42:36 CC1: John Stephenson M.D. Electronically signed by Denver Mondragon Conversion Sales Representative Printing Paper Cerner at 11/24/2022 5:25 PM CDT documented in this encounter Plan of Treatment Not on file documented as of this encounter Visit Diagnoses Not on filedocumented in this encounter
== END 2024-12-12 23:59 | disposition home or self-care (01) ==
LOC: LAB.DROPOF 12-13 09:15
PROVIDERS: PCP Family Medicine; Visit Provider Family Medicine
DX: J44.1 Chronic obstructive pulmonary disease with (acute) exacerbation (principal); E55.9 Vitamin D deficiency, unspecified; Z82.49 Family history of ischemic heart disease and other diseases of the circulatory system; J44.9 Chronic obstructive pulmonary disease, unspecified; R53.83 Other fatigue; E78.5 Hyperlipidemia, unspecified; Z13.1 Encounter for screening for diabetes mellitus
CPT/HCPCS: 80053; 80061; 82306; 83036; 84443; 85025

== ENCOUNTER 2025-01-30 09:48 | Outpatient (CLI) | payer MEDICARE, BC, SELFPAY ==
--- OUTSIDE RECORDS SUMMARY | 2025-01-30 09:52 | XMS_ITS | Clinical Summary ---
Author Organization [employer] ([place], [place], [place], [place]) Address [address] [place] [address] Care Team Providers Care Energy Sales Consultant Name Role Phone Unavailable Primary Care Provider [...]
--- OUTSIDE RECORDS SUMMARY | 2025-01-30 09:52 | XMS_ITS | Encounter Summary ---
Author Organization [employer] ([place], [place], [place], [place]) Address [address] [place] [address] Care Team Providers Care Heating And Ventilating Drafter Name Role Phone Unavailable Primary Care Provider Unavailabl e Encounter Details Date Type Department Care Team (Late st Contact Info) Description 04/13/2019 Transcribed Document [facility] Radiology 1 [place] [address] Provider, kerry Sheehan MD Social [...] Miscellaneous Notes * Cerner Conversion Note - [facility] Gama MD - 04/13/2019 2:29 PM EDT [facility] [place] [address] [place] [address] PANKAJ NICOLE :1970 Visit Time:04/13/2019 [...] REGINA BEAR When Within 2 weeks Where: [address] [place] [address] [place] [address]- [facility] (1) Medications What How Much When Instructions [...] activities are safe for you. ??? Take ktbg-mxa-jojnald and prescription medicines only as told by [...] 09/26/2001 Document Revised: 02/03/2018 Document Reviewed: 02/03/2018 [employer] Interactive Patient Education ?? 2019 [employer] Lithotripsy, Care After This sheet gives [...] these instructions at home: Medicines ??? Take coex-naj-farojii and prescription medicines only as told by [...] 07/09/2008 Document Revised: 05/11/2017 Document Reviewed: 05/11/2017 [employer] Interactive Patient Education ?? 2019 [employer]. acetaminophen and hydrocodone (a SEET a MIN oh fen and sandra droe KOE done) Hycet, Lorcet, Mcleod, Verdrocet, Vicodin, Xodol, Zamicet What is the [...] may report side effects to FDA at 6-156-KLG-7861. What other drugs will affect acetaminophen and [...] affect acetaminophen and hydrocodone, including prescription and vwes-ilb-ftvvvva medicines, vitamins, and herbal products. Not all [...] to ensure that the information provided by [employer]. ('[employer]') is accurate, up-to-date, and complete, but no guarantee is made to that effect. Drug information contained herein may be time sensitive. [employer] information has been compiled for use by healthcare practitioners and consumers in the [place] and therefore [employer] does not warrant that uses outside of the [place] are appropriate, unless specifically indicated otherwise. [employer]'s drug information does not endorse drugs, diagnose patients or recommend therapy. [employer] drug information is an informational resource designed [...] effective or appropriate for any given patient. [employer] does not assume any responsibility for any aspect of healthcare administered with the aid of information [employer] provides. The information contained herein is not intended to cover all possible uses, directions, precautions, warnings, drug interactions, allergic reactions, or adverse effects. If you have questions about the drugs you are taking, check with your doctor, nurse or pharmacist. Copyright 9948-9059 [employer]. Version: 15.02. Revision Date: 05/08/2018. Emergency Awareness [...] Assistance with quitting is available by contacting 4-931-PKWG-NOW. This is a free resource providing counseling, [...] was given the opportunity to ask questions. Patient/Mercerizing Range Controller Name: Patient/Mercerizing Range Controller Signature: Relationship to Patient: Clinician/Hospital Mercerizing Range Controller Signature: Date: documented in this encounter Plan of Treatment Not on file documented as of this encounter Visit Diagnoses Not on filedocumented in this encounter
--- OUTSIDE RECORDS SUMMARY | 2025-01-30 09:52 | XMS_ITS | Encounter Summary ---
Author Organization [employer] ([place], [place], [place], [place]) Address [address] [place] [address] Care Team Providers Care Sponge Maker Name Role Phone Unavailable Primary Care Provider Unavailabl e Encounter Details Date Type Department Care Team (Late st Contact Info) Description 04/13/2019 Transcribed Document [facility] Radiology [address] [place] [address] Provider, Denver Sheehan MD Social [...] Miscellaneous Notes * Cerner Conversion Note - [facility] Aguila ProviderMD - 04/13/2019 12:00 PM EDT [facility] Main OR IntraOp Summary Primary Physician: REGINA BEAR MD-URO Finalized Date/Time: 04/16/19 10:09:25 Pt. Name: SPARKLE NICOLEAN /Sex: 1970 Female Med Rec #: [id number] Physician: REGINA BEAR MD-URO Financial #: [id number] Pt. Type: O Room/Bed: Admit/Disch: 04/13/19 07:43:00 - 04/13/19 13:45:00 Institution: [facility] IntraOp Case Attendance Entry 1 Entry 2 Entry 3 Case Attendee REGINA BEAR, YANG STAPLES, MARYELLEN ALVES MD-ANS -URO Role Performed Surgeon/Proceduralist, JAVA TECHNICAL MANAGER/Nurse Airport Driver Anesthesiologist of First Record Time In 04/13/19 [...] RN TODD, JUDY Madden, Jerrild Role Performed Supervisor Marble, First Scrub, First Cooler Supervisor Time In 04/13/19 10:42:00 04/13/19 10:42:00 04/13/19 10:42:00 Time Out 04/13/19 12:11:00 04/13/19 11:09:00 04/13/19 12:11:00 Procedure ESWL/Stone ESWL/Stone ESWL/Stone Manipulation/Cysto(Left) Manipulation/Cysto(Left) Manipulation/Cysto(Left) Other Attendee Superficial Wound Closed By: Last Modified By: Lauren Hughes RN Poff, Janie, RN Poff, Janie, RN 04/13/19 12:11:39 04/13/19 12:11:39 04/13/19 12:11:39 Entry 7 Entry 8 Case Attendee TAMIKO GAONA MD Parker, Katherine, AP Role Performed Resident Supervisor Marble, Second Time In 04/13/19 10:42:00 04/13/19 11:08:00 Time Out 04/13/19 12:11:00 04/13/19 11:38:00 Procedure ESWL/Stone ESWL/Stone Manipulation/Cysto(Left) Manipulation/Cysto(Left) Other Attendee RELIEF Superficial Wound Closed By: Last Modified By: Lauren Hughes RN Poff, Lauren, RN 04/13/19 12:11:39 04/13/19 12:11:39 [facility] IntraOp Case Attendance Audit 04/13/19 12:11:39 Pinion And Wheel Truer: BRIAN Modifier: BRIAN 1 <+> Time Out [...] 8 <*> Procedure ESWL/Stone Manipulation/Cysto(Left) 04/13/19 11:38:43 Pinion And Wheel Truer: LUIS ENRIQUE Modifier: BRIAN 3 <*> Role Performed Anesthesiologist 3 <*> Procedure ESWL/Stone Manipulation/Cysto(Left) 3 <-> Other Attendee SUPERVISIOR 8 <+> Time Out 8 <*> Procedure ESWL/Stone Manipulation/Cysto(Left) 04/13/19 11:19:08 Pinion And Wheel Truer: LUIS ENRIQUE Modifier: LUIS ENRIQUE 1 <*> [...] <+> 8 Procedure <+> 8 Other Attendee [facility] IntraOp Case Times Entry 1 Patient In Room Time 04/13/19 10:42:00 Out Room Time 04/13/19 12:11:00 Anesthesia Start Time 04/13/19 10:42:00 Stop Time 04/13/19 12:11:00 Surgery / Procedure Times Start Time 04/13/19 11:00:00 Stop Time 04/13/19 11:57:00 Last Modified By: Lauren Hughes RN 04/13/19 12:11:35 [facility] IntraOp Case Times Audit 04/13/19 12:11:35 Pinion And Wheel Truer: BRIAN Modifier: POFFJAN <+> 1 Out Room Time <+> 1 Stop Time 04/13/19 11:57:32 Pinion And Wheel Truer: LUIS ENRIQUE Modifier: POFFJAN <+> 1 Stop Time [facility] IntraOp Communication Entry 1 Communication To Family/Significant other Comment START OF PROCEDURE Communication By Lauren Hughes RN Date and Time 04/13/19 11:11:00 Last Modified By: Lary Sotelo RN 04/13/19 11:14:44 [facility] IntraOp Departure from OR Entry 1 Integumentary Assessment Integumentary WDL Assessment WDL Transfer/Handoff Transfer to PACU Phase I Handoff Method Bedside/Face to face, Phone call Post-op Transport Ramirez/Lorraine Via Patient Transport YANG STAPLES CRNA, Accompanied by TAMIKO GAONA MD Last Modified By: Lary Sotelo RN 04/13/19 11:18:21 [facility] IntraOp Fire Risk Assessment Entry 1 Fire [...] Modified By: Lary Sotelo RN 04/13/19 11:19:25 [facility] IntraOp General Case Credit Union Teller 1 Case Information OR OR 19 [facility] Case Level 1 Room Verified Yes Wound Class III - Contaminated Specialty SN Urology Anesthesia Type General ASA Class 2 Diagnosis Preop Diagnosis LEFT RENAL STONE Postop Same As Preop Yes Postop Diagnosis LEFT RENAL STONE Last Modified By: Lauren Hughes RN 04/13/19 11:37:52 [facility] IntraOp General Case Data Audit 04/13/19 11:37:52 Pinion And Wheel Truer: LUIS ENRIQUE Modifier: BRIAN 1 <*> Preop Diagnosis LEFT RNAL STONE 1 <*> Postop Diagnosis LEFT RNAL STONE 04/13/19 11:29:08 Pinion And Wheel Truer: LUIS ENRIQUE Modifier: LUIS ENRIQUE 1 <*> Wound Class II - Clean-Contaminated 1 <+> Postop Same As Preop 1 <+> Postop Diagnosis [facility] IntraOp Intraoperative Assessment Entry 1 Valid History / Yes Physical in Chart Preoperative Yes Checklist Reviewed/Evaluated Allergies Reviewed Yes Patient is Latex No Sensitive Isolation Contact Precautions Noted Level of WDL Consciousness (WDL = Alert, Oriented to Person, Place, and Time) Skin Assessment No Verified Present Upon IVs Arrival to OR Last Modified By: Lary Sotelo RN 04/13/19 11:21:06 [facility] IntraOp Intraoperative Equipment Entry 1 Type Equipment Equipment Equipment Other ID Number [id number] Intraop Monitoring Antiembolic Devices Scopes Photo/Video Documentation Last Modified By: Lary Sotelo RN 04/13/19 11:23:58 [facility] IntraOp Medication Admin Entry 1 Entry 2 Entry 3 Medication/Irrigant BAG CYSTO [id number] LUB SURGLUB JELLY Normal Saline 0.9% FLIPCAP [id number] 1000ml irrigation - [id number] Combo Med List Time Administered Route of TOPICAL IRRIGATION Administration Dose Dose 600 Unit of Measure ml Volume Administered By TAMIKO GAONA MD STARK, TIMOTHY, MD Procedure Irrigation Irrigant Volume In Irrigant Volume Out Last Modified By: Lary Sotelo, Lary Vidal RN Parker, Katherine, RN 04/13/19 11:26:49 04/13/19 11:26:49 04/13/19 11:26:49 Entry 4 Entry 5 Entry 6 Medication/Irrigant lidocaine 2% urojet fentanyl 1000mcg/20ml - Sterile Water 1500ml 10ml jelly - [id number] irrigation --[id number] Combo Med List Time Administered Route of TOPICAL IN BASIN Administration Dose Dose Unit of Measure ml Volume Administered By TAMIKO GAONA MD THOMPSON, BRUCE, CRNA STARK, TIMOTHY, MD Procedure Irrigation Irrigant Volume In Irrigant Volume Out Last Modified By: Lary Sotelo RN Parker, Katherine, RN Parker, Katherine, RN 04/13/19 11:26:49 04/13/19 11:26:49 04/13/19 11:26:49 [facility] IntraOp Patient Positioning Entry 1 Procedure ESWL/Stone [...] REGINA BEAR MD-URO, Lauren Hughes RN, Nirali Howell THOMPSON, BRUCE, CRNA, STARK, TIMOTHY, MD Position Verified Positioning Yes Verified by Anesthesia Positioning Yes Verified by Surgeon Last Modified By: Lary Sotelo RN 04/13/19 11:27:37 [facility] IntraOp Sign In Entry 1 Patient, Site, [...] Modified By: Lary Sotelo RN 04/13/19 11:27:52 [facility] IntraOp Sign Out Entry 1 RN Confirmation [...] Modified By: Lauren Hughes RN 04/13/19 11:57:46 [facility] IntraOp Sign Out Audit 04/13/19 11:57:46 Pinion And Wheel Truer: LUIS ENRIQUE Modifier: BRIAN <+> 1 RN Sign Out Signature Date/Time [facility] IntraOp Skin Prep Entry 1 Procedure ESWL/Stone Manipulation/Cysto(Left) Prescribed N/A Pre-Surgical Prep Completed Prep Area genitalia Intraop Prep Integumentary WDL Assessment WDL Prep Agents Betadine spray Prep by Lauren Hughes RN Hair Removal Methods No hair removal performed Last Modified By: Lary Sotelo RN 04/13/19 11:28:22 [facility] IntraOp Surgical Procedures Entry 1 Procedure ESWL/Stone Manipulation/Cysto Modifiers Left Additional (LT ESWL WITH CYSTO, LT Procedure STONE MANIPULATION) Description Primary Procedure Yes Primary Surgeon REGINA BEAR MD-URO Start 04/13/19 11:00:00 Stop 04/13/19 11:57:00 Anesthesia Type General Specialty SN Urology Wound Class III - Contaminated Last Modified By: Lauren Hughes RN 04/13/19 11:57:38 [facility] IntraOp Surgical Procedures Audit 04/13/19 11:57:38 Pinion And Wheel Truer: LUIS ENRIQUE Modifier: BRIAN <+> 1 Stop [facility] IntraOp Temp Regulation Devices Entry 1 Temp Regulation Temperature Warm blankets, Forced Regulation Device Air Warming device Temperature Upper body Regulation Site Temperature monitored per Regulation Comment anesthesia, antoinette la available Last Modified By: Lary Sotelo RN 04/13/19 11:29:15 [facility] IntraOP Time Out Entry 1 Procedure to [...] Labeled and Displayed Last Modified By: Lary Sotelo RN 04/13/19 11:30:32 Case Comments <None> Finalized By: [...]
--- OUTSIDE RECORDS SUMMARY | 2025-01-30 09:52 | XMS_ITS | Encounter Summary ---
Author Organization [employer] ([place], [place], [place], [place]) Address [address] [place] [address] Care Team Providers Care Return To Service Inspector Name Role Phone Unavailable Primary Care Provider Unavailabl e Encounter Details Date Type Department Care Team (Late st Contact Info) Description 04/13/2019 Transcribed Document [facility] Radiology 1 [place] [address] Provider, Denver Sheehan MD Social [...] * Cerner Conversion Note - [facility] Aguila ProviderMD - 04/13/2019 12:00 PM EDT [facility] Main OR PACU Summary Primary Physician: REGINA BEAR MD-URO Finalized Date/Time: 04/13/19 13:10:40 Pt. Name: PANKAJ NICOLE DAVINA Vazquez/Sex: 1970 Female Med Rec #: [id number] Physician: REGINA BEAR MD-URO Financial #: [id number] Pt. Type: O Room/Bed: Admit/Disch: 04/13/19 07:43:00 - Institution: [facility] Main OR PACU I Case Times Entry 1 In PACU I 04/13/19 12:13:00 Ready for PACU 04/13/19 12:55:00 Discharge Discharge from PACU 04/13/19 12:55:00 I Last Modified By: GRIS HAINES RN 04/13/19 13:07:39 [facility] Main OR PACU I Case Times Audit 04/13/19 13:07:39 Stock Clerk Self Service Store: STEVEN Modifier: BRANDEP <+> 1 Ready for PACU Discharge <+> 1 Discharge from PACU I Finalized By: RGIS HAINES, RN Document Signatures Signed By: GRIS HAINES RN 04/13/19 13:10 Electronically signed by Giancarlo [facility] Conversion Technical Sales Director Cerner at 11/24/2022 5:25 PM CDT documented in this encounter Plan of Treatment Not on file documented as of this encounter Visit Diagnoses Not on filedocumented in this encounter
--- OUTSIDE RECORDS SUMMARY | 2025-01-30 09:52 | XMS_ITS | Referral Summary ---
Author Organization [employer] ([place], [place], [place], [place]) Address [address] [place] [address] Care Team Providers Care Feather Edger Name Role Phone Unavailable Primary Care Provider [...]
--- OUTSIDE RECORDS SUMMARY | 2025-01-30 09:52 | XMS_ITS | Encounter Summary ---
Author Organization [employer] ([place], [place], [place], [place]) Address [address] [place] [address] Care Team Providers Care Automobile Mechanic Helper Name Role Phone Unavailable Primary Care Provider Unavailabl e Encounter Details Date Type Department Care Team (Late st Contact Info) Description 04/13/[address] [facility] Radiology [address] [place] [address] Provider, Denver Sheehan MD Social [...] 3. Fluoroscopic guidance. SURGEON: John Stephenson MD PERFORMANCE TEST ARCHITECT: Ziggy Hammond M.D. (R) ANESTHESIA: General. FINDINGS: [...] fashion. After time-out had been performed, the 22-Thai cystoscope was lubricated, inserted into the urethra [...] Trans: 04/13/2019 14:42:36 CC1: John Stephenson M.D. documented in this encounter Plan of Treatment Not on file documented as of this encounter Visit Diagnoses Not on filedocumented in this encounter
--- OUTSIDE RECORDS SUMMARY | 2025-01-30 09:52 | XMS_ITS | Encounter Summary ---
Author Organization [employer] ([place], [place], [place], [place]) Address [address] [place] [address] Care Team Providers Care Joint Cleaning Machine Operator Name Role Phone Unavailable Primary Care Provider Unavailabl e Encounter Details Date Type Department Care Team (Late st Contact Info) Description 04/13/2019 Transcribed Document [facility] Radiology 1 [place] [address] Provider, Denver Sheehan MD Social [...] activities are safe for you. ??? Take anyu-zlu-ohghqqj and prescription medicines only as told by [...] 09/26/2001 Document Revised: 02/03/2018 Document Reviewed: 02/03/2018 [employer] Interactive Patient Education ? 2019 [employer] Nephrology Lithotripsy, Care After This sheet [...] these instructions at home: Medicines ??? Take myff-oua-hceioes and prescription medicines only as told by [...] 07/09/2008 Document Revised: 05/11/2017 Document Reviewed: 05/11/2017 [employer] Interactive Patient Education ? 2019 [employer]. documented in this encounter Plan of Treatment Not on file documented as of this encounter Visit Diagnoses Not on filedocumented in this encounter
--- OUTSIDE RECORDS SUMMARY | 2025-01-30 09:52 | XMS_ITS | Clinical Summary ---
Author Organization Healthcare Address [address] [place] [address] Care Team Providers Care Physical Testing Supervisor Name Role Phone Ru Rand MD Primary Care Provider [phone] Allergies Active Allergy Reactions Criticality Noted Date [...] 8 (eight) hours. 0 Active HYDROcodone-abel taminophen ([place]) 5-325 MG tablet 3 Active montelukast (Singulair) [...] 2019 UKY-Zoster Vaccines (1 of 2) 2019 JHD-GOPOX-16 Vaccine ( - - season) 2024 UKY-Influenza Vaccine (#1) 2025 2020 HPV Vaccines Aged Out No [...] patient's age to complete this topic Insurance [facility] Care Teams Physical Testing Supervisor Relationship Specialty Start Date End Date Ru Rand MD [address] [place] [address] [place] [address] PCP - General 12/24/20
--- OUTSIDE RECORDS SUMMARY | 2025-01-30 09:52 | XMS_ITS | Encounter Summary ---
Author Organization [employer] ([place], [place], [place], [place]) Address [address] [place] [address] Care Team Providers Care Clothes Drier Assembler Name Role Phone Unavailable Primary Care Provider Unavailabl e Encounter Details Date Type Department Care Team (Late st Contact Info) Description 04/13/2019 Transcribed Document [facility] Radiology 1 [place] [address] Provider, Denver Sheehan MD Social [...] Notes * Cerner Conversion Note - [facility] Aguila ProviderMD - 04/13/2019 12:00 PM EDT [facility] Main OR PostOp Summary Primary Physician: REGINA BEAR MD-URO Finalized Date/Time: 04/13/19 13:45:46 Pt. Name: PANKAJ NICOLE DAVINA PatricioB./Sex: 1970 Female Med Rec #: [id number] Physician: REGINA BEAR MD-URO Financial #: [id number] Pt. Type: O Room/Bed: Admit/Disch: 04/13/19 07:43:00 - Institution: [facility] Main OR PostOp Case Times Entry 1 In PACU II 04/13/19 12:58:00 Ready for PACU II 04/13/19 13:45:00 Discharge Discharge from PACU 04/13/19 13:45:00 II Last Modified By: PANKAJ ORTA RN 04/13/19 13:45:44 [facility] Main OR PostOp Case Times Audit 04/13/19 13:45:44 Sustainability Purchasing Agent: KOTA Modifier: KOTA <+> 1 Ready for PACU II Discharge <+> 1 Discharge from PACU II Finalized By: PANKAJ ORTA, RN Document Signatures Signed By: PANKAJ ORTA RN 04/13/19 13:45 Electronically signed by Giancarlo [facility] Conversion [place] Reporter Cerner at 11/24/2022 5:25 PM CDT documented in this encounter Plan of Treatment Not on file documented as of this encounter Visit Diagnoses Not on filedocumented in this encounter
--- OUTSIDE RECORDS SUMMARY | 2025-01-30 09:52 | XMS_ITS | Encounter Summary ---
Author Organization [employer] ([place], [place], [place], [place]) Address [address] [place] [address] Care Team Providers Care Support Merchandiser Name Role Phone Unavailable Primary Care Provider Unavailabl e Encounter Details Date Type Department Care Team (Late st Contact Info) Description 04/13/2019 Transcribed Document [facility] Radiology 1 [place] [address] Provider, kerry Sheehan MD Social [...] Miscellaneous Notes * Cerner Conversion Note - [facility] Aguila ProviderMD - 04/13/2019 12:00 PM EDT [facility] Main OR Preop Summary Primary Physician: REGINA BEAR MD-URO Finalized Date/Time: 04/13/19 14:49:46 Pt. Name: PANKAJ NICOLE DAVINA PatricioB./Sex: 1970 Female Med Rec #: [id number] Physician: REGINA BEAR MD-URO Financial #: [id number] Pt. Type: O Room/Bed: Admit/Disch: 04/13/19 07:43:00 - 04/13/19 13:45:00 Institution: [facility] PreOp Case Times Entry 1 In Preop 04/13/19 07:53:00 Ready for Holding n/a Room Patient Ready for 04/13/19 08:49:00 Surgery Patient Out of Preop 04/13/19 10:39:00 Patient Out of n/a Holding Room Last Modified By: EVANS Hansen RN 04/13/19 14:49:44 [facility] PreOp Case Times Audit 04/13/19 14:49:44 Cosmetic Dentist: MORRIS Modifier: WILSONDL <+> 1 Patient Out of Preop 04/13/19 08:49:42 Cosmetic Dentist: MORRIS Modifier: WILSONDL <+> 1 Patient Ready for Surgery Finalized By: EVANS Hansen, RN Document Signatures Signed By: EVANS Hansen RN 04/13/19 14:49 Electronically signed by Giancarlo [facility] Conversion Sign Out Clerk Cerner at 11/24/2022 5:25 PM CDT documented in this encounter Plan of Treatment Not on file documented as of this encounter Visit Diagnoses Not on filedocumented in this encounter
--- OUTSIDE RECORDS SUMMARY | 2025-01-30 09:52 | XMS_ITS | Encounter Summary ---
Author Organization [employer] ([place], [place], [place], [place]) Address [address] [place] [address] Care Team Providers Care Owner Operator Name Role Phone Unavailable Primary Care Provider Unavailabl e Encounter Details Date Type Department Care Team (Late st Contact Info) Description 04/13/2019 Transcribed Document [facility] Radiology 1 [place] [address] Provider, Denver Sheehan MD Social [...] Source : Measured Height Entry Format : [place] Height, Feet : 5 ft(Converted to: 152 cm, 60 Inch) Height, Inches : 7 Inch(Converted to: 0 ft 7 Inch, 17.78 cm) Clinical Height : 170.18 cm Weight Source : Standing scale Weight Entry Format : [place] Clinical Dosing Weight : 57.09 kg Weight, Pounds : 125.6 lb Body Surface Area (BSA) : 1.66 m2 Body Mass Index : 19.7 kg/m2 [place] Body Weight : 61 kg EVANS Hansen [...] Updated: 11/18/2015 15:32:54 EDT by MIGUEL ROBERTO, AP) Alcohol: Alcohol Use History No. (Last Updated: [...] : Sibling Support Person/Pt Rep Name : Ellen Masterson Contact Password : [phone] Support Person/Pt Rep Contact Information : sister Want Family/Rep/Phys Notified of Admit : No Emergency Contact #1 : ` Emergency Contact #1 Phone Number : ` Emergency Contact #1 Relationship : ` Emergency Contact #2 : ` Emergency Contact #2 Phone Number : ` Emergency Contact #2 Relationship : ` Primary Language : Comoran Communication Barrier : None EVANS Hansen RN [...] EDT Electronically signed by Denver Mondragon Conversion Respiratory Care Instructor Cerner at 11/24/2022 5:25 PM CDT documented in this encounter Plan of Treatment Not on file documented as of this encounter Visit Diagnoses Not on filedocumented in this encounter
--- NOTE | 2025-01-30 10:00 | MM_ITS ---
PROCEDURE INFORMATION: Exam: MG Bilateral Screening 3D Mammography Exam date and time: 01/30/2025 9:51 AM Age: 54 years old Clinical indication: Screening examination TECHNIQUE: Imaging protocol: Bilateral Screening tomosynthesis and 2D mammography including computer-aided detection (CAD) when performed. COMPARISON: 1. MG MM DIG MAMM BI DX W/CAD 01/12/2022 9:14 AM 2. MG Screening-Bilateral Mammography 05/01/2019 4:02 PM FINDINGS: MAMMOGRAPHY: Breast composition: The breasts are extremely dense, which lowers the sensitivity of mammography. Mass: None. Architectural distortion: None. Calcifications: No suspicious calcifications. Asymmetric density: None. Skin thickening: None. Axillary adenopathy: None. IMPRESSION: No mammographic evidence of malignancy. Annual screening is recommended unless otherwise clinically indicated. ASSESSMENT: BI-RADS Category 1: Negative.
== END 2025-01-30 23:59 | disposition home or self-care (01) ==
LOC: RAD 09:49
PROVIDERS: PCP Family Medicine; Visit Provider Family Medicine
DX: Z12.31 Encounter for screening mammogram for malignant neoplasm of breast (principal); R92.331 Mammographic heterogeneous density, right breast; R92.332 Mammographic heterogeneous density, left breast
CPT/HCPCS: 77063; 77067

== ENCOUNTER 2025-06-24 12:33 | Outpatient (CLI) | payer MEDICARE, BC, SELFPAY ==
[2025-06-24 16:45] LABS: Hematocrit 43.0 % (37.0-47.0); Hemoglobin 13.7 g/dL (12.2-16.2); Immature Granulocytes % 0.3 %; Mean Corpuscular HGB Conc 31.9 g/dL (31.8-35.4); Mean Corpuscular Hemoglobin 29.8 pg (27.0-31.2); Mean Corpuscular Volume 93.7 fl (81-99); Nucleated Red Blood Cells % 0 %; Platelet Count 197 K/mm3 (142-424); Red Blood Count 4.59 M/mm3 (4.20-5.40); Red Cell Distribution Width-SD 42.7 fL; White Blood Count 7.6 K/mm3 (4.8-10.8)
[2025-06-24 17:31] LABS: Alanine Aminotransferase 34 U/L (12-78); Albumin Level 4.5 g/dl (3.5-5.0); Albumin/Globulin Ratio 1.9 (1.1-1.8); Alkaline Phosphatase 88 U/L (38-126); Anion Gap 12.0 mEq/L (5-15); Aspartate Amino Transferase 35 U/L (14-36); Bilirubin,Total 0.5 mg/dl (0.2-1.3); Blood Urea Nitrogen 17 mg/dl (7-17); Calcium 9.3 mg/dl (8.4-10.2); Carbon Dioxide 27 mmol/L (22.0-30.0); Chloride 104 mmol/L (98-107); Creatinine,Serum 0.90 mg/dl (0.52-1.04); Estimated Glomerular Filt Rate 65 ml/min (>60); GFR (African American) 78 ML/MIN (>60); Globulin 2.4 g/dL (1.3-3.2); Glucose 73 mg/dl (74-100); Potassium 5.0 mmoL/L (3.5-5.1); Sodium 138 mmol/L (136-145); Total Protein,Serum 6.9 g/dl (6.3-8.2)
[2025-06-24 17:57] LABS: Free T4 (Free Thyroxine) 1.17 ng/dl (0.78-2.19)
[2025-06-24 18:02] LABS: Thyroid Stimulating Hormone 1.94 uIU/mL (0.465-4.68)
[2025-06-24 18:21] LABS: Vitamin B12 353 pg/mL (239-931)
--- OUTSIDE RECORDS SUMMARY | 2025-06-25 13:09 | XMS_ITS | Encounter Summary ---
Author Organization [employer] ([place], [place], [place], [place], [place]) Address [address] [place] [address] Care Team Providers Care Salesforce Developer Name Role Phone Unavailable Primary Care Provider Unavailabl e Encounter Details Date Type Department Care Team (Late st Contact Info) Description 04/13/2019 Transcribed Document [facility] Radiology 1 [place] [address] Provider, Denver Sheehan MD Social [...] Miscellaneous Notes * Cerner Conversion Note - [facility] Aguila ProviderMD - 04/13/2019 9:34 AM EDT PAT Adult Entered On: 04/13/2019 8:38 EDT Performed On: 04/13/2019 8:34 EDT by EVANS Hansen RN Height and Weight, Clinical Dosing Height Source : Measured Height Entry Format : [place] Height, Feet : 5 ft(Converted to: 152 cm, 60 Inch) Height, Inches : 7 Inch(Converted to: 0 ft 7 Inch, 17.78 cm) Clinical Height : 170.18 cm Weight Source : Standing scale Weight Entry Format : [place] Clinical Dosing Weight : 57.09 kg Weight, Pounds : 125.6 lb Body Surface Area (BSA) : 1.66 m2 Body Mass Index : 19.7 kg/m2 [place] Body Weight : 61 kg EVANS Hansen [...] Name : Ellen Masterson Contact Password : [phone] Support Person/Pt Rep Contact Information : sister Want Family/Rep/Phys Notified of Admit : No Emergency Contact #1 : ` Emergency Contact #1 Phone Number : ` Emergency Contact #1 Relationship : ` Emergency Contact #2 : ` Emergency Contact #2 Phone Number : ` Emergency Contact #2 Relationship : ` Primary Language : Eritrean Communication Barrier : None EVANS Hansen RN [...] EVANS Hansen RN - 04/13/2019 8:34 EDT documented in this encounter Plan of Treatment Not on file documented as of this encounter Visit Diagnoses Not on filedocumented in this encounter
--- OUTSIDE RECORDS SUMMARY | 2025-06-25 13:09 | XMS_ITS | Encounter Summary ---
Author Organization [employer] ([place], [place], [place], [place], [place]) Address [address] [place] [address] Care Team Providers Care Child Neurologist Name Role Phone Unavailable Primary Care Provider Unavailabl e Encounter Details Date Type Department Care Team (Late st Contact Info) Description 04/13/2019 Transcribed Document [facility] Radiology 1 [place] [address] Provider, Denver Sheehan MD Social [...] activities are safe for you. ??? Take mnww-yyq-yiaycva and prescription medicines only as told by [...] 09/26/2001 Document Revised: 02/03/2018 Document Reviewed: 02/03/2018 [employer] Interactive Patient Education ? 2019 [employer] Nephrology Lithotripsy, Care After This sheet [...] these instructions at home: Medicines ??? Take fvdp-riv-mpcvzql and prescription medicines only as told by [...] 07/09/2008 Document Revised: 05/11/2017 Document Reviewed: 05/11/2017 [employer] Interactive Patient Education ? 2019 [employer] Electronically signed by Denver Mondragon Conversion Operations Project Manager Cerner at 11/24/2022 5:25 PM CDT documented in this encounter Plan of Treatment Not on file documented as of this encounter Visit Diagnoses Not on filedocumented in this encounter
--- OUTSIDE RECORDS SUMMARY | 2025-06-25 13:09 | XMS_ITS | Referral Summary ---
Author Organization [employer] ([place], [place], [place], [place], [place]) Address [address] [place] [address] Care Team Providers Care Senior Speech Pathologist Name Role Phone Unavailable Primary Care Provider [...]
--- OUTSIDE RECORDS SUMMARY | 2025-06-25 13:09 | XMS_ITS | Clinical Summary ---
Author Organization Healthcare Address [address] [place] [address] Care Team Providers Care Printing Manager Name Role Phone Ru Rand MD Primary Care Provider [phone] Allergies Active Allergy Reactions Criticality Noted Date [...] 8 (eight) hours. 0 Active HYDROcodone-abel taminophen ([place]) 5-325 MG tablet 3 Active montelukast (Singulair) [...] UKY-HIV Screening 1970 UKY-Hepatitis C Screening 1970 UKY-/Child/Adol SDOH Screenings 1970 UKY- SDOH Screenings 1987 [...] 2019 UKY-Zoster Vaccines (1 of 2) 2019 QCB-JQGOV-10 Vaccine ( season) 2025 UKY-Influenza Vaccine (#1) 2025 2020 HPV Vaccines (No Doses Required) Completed UKY-HIB Vaccines Aged Out No longer e [...] patient's age to complete this topic Insurance [address] [address] Care Teams Printing Manager Relationship Specialty Start Date End Date Ru Rand MD [address] [place] [address] PCP - General 12/24/20
--- OUTSIDE RECORDS SUMMARY | 2025-06-25 13:09 | XMS_ITS | Encounter Summary ---
Author Organization [employer] ([place], [place], [place], [place], [place]) Address [address] [place] [address] Care Team Providers Care Computational Geneticist Name Role Phone Unavailable Primary Care Provider Unavailabl e Encounter Details Date Type Department Care Team (Late st Contact Info) Description 04/13/2019 Transcribed Document [facility] Radiology 1 [place] [address] Provider, kerry Sheehan MD Social [...] Miscellaneous Notes * Cerner Conversion Note - [facility] Aguila ProviderMD - 04/13/2019 12:00 PM EDT [facility] Main OR IntraOp Summary Primary Physician: REGINA BEAR MD-URO Finalized Date/Time: 04/16/19 10:09:25 Pt. Name: SPARKLE NICOLEAN /Sex: 1970 Female Med Rec #: [id number] Physician: REGINA BEAR MD-URO Financial #: [id number] Pt. Type: O Room/Bed: Admit/Disch: 04/13/19 07:43:00 - 04/13/19 13:45:00 Institution: [facility] IntraOp Case Attendance Entry 1 Entry 2 Entry 3 Case Attendee REGINA BEAR, YANG STAPLES, MARYELLEN ALVES MD-ANS -URO Role Performed Surgeon/Proceduralist, INVOICE CODER/Nurse Industrial Property Appraiser Anesthesiologist of First Record Time In 04/13/19 [...] RN TODD, JUDY Madden, Jerrild Role Performed Radio Electrician, First Scrub, First Sunglass Clip Attacher Time In 04/13/19 10:42:00 04/13/19 10:42:00 04/13/19 10:42:00 Time Out 04/13/19 12:11:00 04/13/19 11:09:00 04/13/19 12:11:00 Procedure ESWL/Stone ESWL/Stone ESWL/Stone Manipulation/Cysto(Left) Manipulation/Cysto(Left) Manipulation/Cysto(Left) Other Attendee Superficial Wound Closed By: Last Modified By: Lauren Hughes RN Poff, Janie, RN Poff, Janie, RN 04/13/19 12:11:39 04/13/19 12:11:39 04/13/19 12:11:39 Entry 7 Entry 8 Case Attendee TAMIKO GAONA MD Parker, Katherine, AP Role Performed Resident Radio Electrician, Second Time In 04/13/19 10:42:00 04/13/19 11:08:00 Time Out 04/13/19 12:11:00 04/13/19 11:38:00 Procedure ESWL/Stone ESWL/Stone Manipulation/Cysto(Left) Manipulation/Cysto(Left) Other Attendee RELIEF Superficial Wound Closed By: Last Modified By: Ellen, Lauren, Lauren Candelaria RN 04/13/19 12:11:39 04/13/19 12:11:39 [facility] IntraOp Case Attendance Audit 04/13/19 12:11:39 Purification Supervisor: BRIAN Modifier: BRIAN 1 <+> Time Out [...] 8 <*> Procedure ESWL/Stone Manipulation/Cysto(Left) 04/13/19 11:38:43 Purification Supervisor: LUIS ENRIQUE Modifier: BRIAN 3 <*> Role Performed Anesthesiologist 3 <*> Procedure ESWL/Stone Manipulation/Cysto(Left) 3 <-> Other Attendee SUPERVISIOR 8 <+> Time Out 8 <*> Procedure ESWL/Stone Manipulation/Cysto(Left) 04/13/19 11:19:08 Purification Supervisor: LUIS ENRIQUE Modifier: LUIS ENRIQUE 1 <*> [...] <+> 8 Procedure <+> 8 Other Attendee [facility] IntraOp Case Times Entry 1 Patient In Room Time 04/13/19 10:42:00 Out Room Time 04/13/19 12:11:00 Anesthesia Start Time 04/13/19 10:42:00 Stop Time 04/13/19 12:11:00 Surgery / Procedure Times Start Time 04/13/19 11:00:00 Stop Time 04/13/19 11:57:00 Last Modified By: Lauren Hughes RN 04/13/19 12:11:35 [facility] IntraOp Case Times Audit 04/13/19 12:11:35 Purification Supervisor: BRIAN Modifier: POFFJAN <+> 1 Out Room Time <+> 1 Stop Time 04/13/19 11:57:32 Purification Supervisor: LUIS ENRIQUE Modifier: POFFJAN <+> 1 Stop Time [facility] IntraOp Communication Entry 1 Communication To Family/Significant other Comment START OF PROCEDURE Communication By Lauren Hughes RN Date and Time 04/13/19 11:11:00 Last Modified By: Lary Sotelo RN 04/13/19 11:14:44 [facility] IntraOp Departure from OR Entry 1 Integumentary Assessment Integumentary WDL Assessment WDL Transfer/Handoff Transfer to PACU Phase I Handoff Method Bedside/Face to face, Phone call Post-op Transport Stretcher/Lorraine Via Patient Transport YANG STAPLES CRNA, Accompanied by TAMIKO GAONA MD Last Modified By: Lary Sotelo RN 04/13/19 11:18:21 [facility] IntraOp Fire Risk Assessment Entry 1 Fire [...] Modified By: Lary Sotelo RN 04/13/19 11:19:25 [facility] IntraOp General Case Byproducts Maker 1 Case Information OR OR 19 [facility] Case Level 1 Room Verified Yes Wound Class III - Contaminated Specialty SN Urology Anesthesia Type General ASA Class 2 Diagnosis Preop Diagnosis LEFT RENAL STONE Postop Same As Preop Yes Postop Diagnosis LEFT RENAL STONE Last Modified By: Lauren Hughes RN 04/13/19 11:37:52 [facility] IntraOp General Case Data Audit 04/13/19 11:37:52 Purification Supervisor: LUIS ENRIQUE Modifier: BRIAN 1 <*> Preop Diagnosis LEFT RNAL STONE 1 <*> Postop Diagnosis LEFT RNAL STONE 04/13/19 11:29:08 Purification Supervisor: LUIS ENRIQUE Modifier: LUIS ENRIQUE 1 <*> Wound Class II - Clean-Contaminated 1 <+> Postop Same As Preop 1 <+> Postop Diagnosis [facility] IntraOp Intraoperative Assessment Entry 1 Valid History / Yes Physical in Chart Preoperative Yes Checklist Reviewed/Evaluated Allergies Reviewed Yes Patient is Latex No Sensitive Isolation Contact Precautions Noted Level of WDL Consciousness (WDL = Alert, Oriented to Person, Place, and Time) Skin Assessment No Verified Present Upon IVs Arrival to OR Last Modified By: Lary Sotelo RN 04/13/19 11:21:06 [facility] IntraOp Intraoperative Equipment Entry 1 Type Equipment Equipment Equipment Other ID Number [id number] Intraop Monitoring Antiembolic Devices Scopes Photo/Video Documentation Last Modified By: Lary Sotelo RN 04/13/19 11:23:58 [facility] IntraOp Medication Admin Entry 1 Entry 2 Entry 3 Medication/Irrigant BAG CYSTO [id number] LUB SURGLUB JELLY Normal Saline 0.9% FLIPCAP [id number] 1000ml irrigation - [id number] Combo Med List Time Administered Route of TOPICAL IRRIGATION Administration Dose Dose 600 Unit of Measure ml Volume Administered By TAMIKO GAONA MD STARK, TIMOTHY, MD Procedure Irrigation Irrigant Volume In Irrigant Volume Out Last Modified By: Lary Sotelo, Lary Vidal, Lary Vidal RN 04/13/19 11:26:49 04/13/19 11:26:49 04/13/19 11:26:49 Entry 4 Entry 5 Entry 6 Medication/Irrigant lidocaine 2% urojet fentanyl 1000mcg/20ml - Sterile Water 1500ml 10ml jelly - [id number] irrigation --[id number] Combo Med List Time Administered Route of TOPICAL IN BASIN Administration Dose Dose Unit of Measure ml Volume Administered By GAONA, TAMIKOMD JHOAN GRIMM BRUCE, CRNA STARK, TIMOTHY, MD Procedure Irrigation Irrigant Volume In Irrigant Volume Out Last Modified By: Lary Sotelo RN Parker, Katherine, RN Parker, Katherine, RN 04/13/19 11:26:49 04/13/19 11:26:49 04/13/19 11:26:49 [facility] IntraOp Patient Positioning Entry 1 Procedure ESWL/Stone [...] Hughes RN, Nirali Howell THOMPSON, BRUCE, CRNA, TAMIKO GAONA MD Position Verified Positioning Yes Verified by Anesthesia Positioning Yes Verified by Surgeon Last Modified By: Lary Sotelo RN 04/13/19 11:27:37 [facility] IntraOp Sign In Entry 1 Patient, Site, [...] Modified By: Lary Sotelo RN 04/13/19 11:27:52 [facility] IntraOp Sign Out Entry 1 RN Confirmation [...] Yes Elements Complete? RN Sign Out Lauren Hughes RN Signature RN Sign Out 04/13/19 11:57:00 Signature [...] Modified By: Lauren Hughes RN 04/13/19 11:57:46 [facility] IntraOp Sign Out Audit 04/13/19 11:57:46 Purification Supervisor: LUIS ENRIQUE Modifier: BRIAN <+> 1 RN Sign Out Signature Date/Time [facility] IntraOp Skin Prep Entry 1 Procedure ESWL/Stone Manipulation/Cysto(Left) Prescribed N/A Pre-Surgical Prep Completed Prep Area genitalia Intraop Prep Integumentary WDL Assessment WDL Prep Agents Betadine spray Prep by Lauren Hughes RN Hair Removal Methods No hair removal performed Last Modified By: Lary Sotelo RN 04/13/19 11:28:22 [facility] IntraOp Surgical Procedures Entry 1 Procedure ESWL/Stone Manipulation/Cysto Modifiers Left Additional (LT ESWL WITH CYSTO, LT Procedure STONE MANIPULATION) Description Primary Procedure Yes Primary Surgeon REGINA BEAR MD-URO Start 04/13/19 11:00:00 Stop 04/13/19 11:57:00 Anesthesia Type General Specialty SN Urology Wound Class III - Contaminated Last Modified By: Lauren Hughes RN 04/13/19 11:57:38 [facility] IntraOp Surgical Procedures Audit 04/13/19 11:57:38 Purification Supervisor: LUIS ENRIQUE Modifier: BRIAN <+> 1 Stop [facility] IntraOp Temp Regulation Devices Entry 1 Temp Regulation Temperature Warm blankets, Forced Regulation Device Air Warming device Temperature Upper body Regulation Site Temperature monitored per Regulation Comment liana, antoinette la available Last Modified By: Lary Sotelo RN 04/13/19 11:29:15 [facility] IntraOP Time Out Entry 1 Procedure to [...]
--- OUTSIDE RECORDS SUMMARY | 2025-06-25 13:10 | XMS_ITS | Encounter Summary ---
Author Organization [employer] ([place], [place], [place], [place], [place]) Address [address] [place] [address] Care Team Providers Care Electric Motor Fitter Name Role Phone Unavailable Primary Care Provider Unavailabl e Encounter Details Date Type Department Care Team (Late st Contact Info) Description 04/13/2019 Transcribed Document [facility] Radiology [address] [place] [address] Provider, kerry Sheehan MD Social [...] * Cerner Conversion Note - [facility] Aguila ProviderMD - 04/13/2019 12:00 PM EDT [facility] Main OR PostOp Summary Primary Physician: REGINA BEAR MD-URO Finalized Date/Time: 04/13/19 13:45:46 Pt. Name: PANKAJ NICOLE DAVINA PatricioB./Sex: 1970 Female Med Rec #: [id number] Physician: REGINA BEAR MD-URO Financial #: [id number] Pt. Type: O Room/Bed: Admit/Disch: 04/13/19 07:43:00 - Institution: [facility] Main OR PostOp Case Times Entry 1 In PACU II 04/13/19 12:58:00 Ready for PACU II 04/13/19 13:45:00 Discharge Discharge from PACU 04/13/19 13:45:00 II Last Modified By: PANKAJ ORTA RN 04/13/19 13:45:44 [facility] Main OR PostOp Case Times Audit 04/13/19 13:45:44 Culinary Chef: KOTA Modifier: KOTA <+> 1 Ready for PACU II Discharge <+> 1 Discharge from PACU II Finalized By: PANKAJ ORTA, RN Document Signatures Signed By: PANKAJ ORTA RN 04/13/19 13:45 Electronically signed by Giancarlo [facility] Conversion Flame Annealing Machine Setter Cerner at 11/24/2022 5:25 PM CDT documented in this encounter Plan of Treatment Not on file documented as of this encounter Visit Diagnoses Not on filedocumented in this encounter
--- OUTSIDE RECORDS SUMMARY | 2025-06-25 13:10 | XMS_ITS | Clinical Summary ---
Author Organization [employer] ([place], [place], [place], [place], [place]) Address [address] [place] [address] Care Team Providers Care Reporting Specialist Name Role Phone Unavailable Primary Care [...]
--- OUTSIDE RECORDS SUMMARY | 2025-06-25 13:10 | XMS_ITS | Encounter Summary ---
Author Organization [employer] ([place], [place], [place], [place], [place]) Address [address] [place] [address] Care Team Providers Care Cutter Gas Name Role Phone Unavailable Primary Care Provider Unavailabl e Encounter Details Date Type Department Care Team (Late st Contact Info) Description 04/13/2019 Transcribed Document [facility] Radiology [address] [place] [address] Provider, kerry Sheehan MD Social [...] Miscellaneous Notes * Cerner Conversion Note - [facility] Aguila ProviderMD - 04/13/2019 12:00 PM EDT [facility] Main OR PACU Summary Primary Physician: REGINA BEAR MD-URO Finalized Date/Time: 04/13/19 13:10:40 Pt. Name: PANKAJ NICOLE DAVINA Vazquez/Sex: 1970 Female Med Rec #: [id number] Physician: REGINA BEAR MD-URO Financial #: [id number] Pt. Type: O Room/Bed: Admit/Disch: 04/13/19 07:43:00 - Institution: [facility] Main OR PACU I Case Times Entry 1 In PACU I 04/13/19 12:13:00 Ready for PACU 04/13/19 12:55:00 Discharge Discharge from PACU 04/13/19 12:55:00 I Last Modified By: GRIS HAINES RN 04/13/19 13:07:39 [facility] Main OR PACU I Case Times Audit 04/13/19 13:07:39 Photogrammetric Tech: STEVEN Modifier: BRANDEP <+> 1 Ready for PACU Discharge <+> 1 Discharge from PACU I Finalized By: GRIS HAINES, RN Document Signatures Signed By: GRIS HAINES RN 04/13/19 13:10 documented in this encounter Plan of Treatment Not on file documented as of this encounter Visit Diagnoses Not on filedocumented in this encounter
--- OUTSIDE RECORDS SUMMARY | 2025-06-25 13:10 | XMS_ITS | Encounter Summary ---
Author Organization [employer] ([place], [place], [place], [place], [place]) Address [address] [place] [address] Care Team Providers Care Feeder Tender Name Role Phone Unavailable Primary Care Provider Unavailabl e Encounter Details Date Type Department Care Team (Late st Contact Info) Description 04/13/2019 Transcribed Document [facility] Radiology [address] [place] [address] Provider, [facility] MD Aguila Social History Tobacco Use Types Packs/Day Years Used Date Smoking Tobacco: Never Assessed Comments Unknown Sex and Gender Information Value Date Recorded Sex Assigned at Female 12/31/2021 12:41 PM CDT Legal Sex Female 6:46 PM CDT Gender Identity Female 12/31/2021 12:41 PM CDT Sexual Orientation Not on file documented as of this encounter Miscellaneous Notes * Cerner Conversion Note - [facility] Aguila Gama MD - 04/13/2019 2:29 PM EDT [facility] [address] [place] [address] PANKAJ NICOLE :1970 Visit Time:04/13/2019 [...] REGINA BEAR When Within 2 weeks Where: [facility] [place] [id number]- Business (1) Medications What How Much When Instructions [...] activities are safe for you. ??? Take jkes-ibf-uieupve and prescription medicines only as told by [...] 09/26/2001 Document Revised: 02/03/2018 Document Reviewed: 02/03/2018 [employer] Interactive Patient Education ?? 2019 [employer] Lithotripsy, Care After This sheet gives [...] these instructions at home: Medicines ??? Take ltrq-lhe-binwjsn and prescription medicines only as told by [...] 07/09/2008 Document Revised: 05/11/2017 Document Reviewed: 05/11/2017 [employer] Interactive Patient Education ?? 2019 [employer]. acetaminophen and hydrocodone (a SEET a MIN oh fen and sandra droe KOE done) Hycet, Lorcet, [place], Verdrocet, Vicodin, Xodol, Zamicet What is the [...] may report side effects to FDA at 6-533-LWC-0314. What other drugs will affect acetaminophen and [...] affect acetaminophen and hydrocodone, including prescription and bxsr-gpb-qbfnxwa medicines, vitamins, and herbal products. Not all [...] to ensure that the information provided by [employer] ('[employer]') is accurate, up-to-date, and complete, but no guarantee is made to that effect. Drug information contained herein may be time sensitive. [employer] information has been compiled for use by healthcare practitioners and consumers in the [place] and therefore [employer] does not warrant that uses outside of the [place] are appropriate, unless specifically indicated otherwise. [employer]'s drug information does not endorse drugs, diagnose patients or recommend therapy. [employer] drug information is an informational resource designed [...] effective or appropriate for any given patient. [employer] does not assume any responsibility for any aspect of healthcare administered with the aid of information [employer] provides. The information contained herein is not intended to cover all possible uses, directions, precautions, warnings, drug interactions, allergic reactions, or adverse effects. If you have questions about the drugs you are taking, check with your doctor, nurse or pharmacist. Copyright 8282-0449 idiojose antonio [employer]. Version: 15.. Revision Date: 05/08/2018. Emergency Awareness and Preventative [...] Assistance with quitting is available by contacting 9-242-EPHO-NOW. This is a free resource providing counseling, [...] was given the opportunity to ask questions. Patient/Pick And Shovel Worker Name: Patient/Pick And Shovel Worker Signature: Relationship to Patient: Clinician/Hospital Pick And Shovel Worker Signature: Date: documented in this encounter Plan of Treatment Not on file documented as of this encounter Visit Diagnoses Not on filedocumented in this encounter
--- OUTSIDE RECORDS SUMMARY | 2025-06-25 13:10 | XMS_ITS | Encounter Summary ---
Author Organization [employer] ([place], [place], [place], [place], [place]) Address [address] [place] [address] Care Team Providers Care Chief Executive Or Managing Director Name Role Phone Unavailable Primary Care Provider Unavailabl e Encounter Details Date Type Department Care Team (Late st Contact Info) Description 04/13/2019 Transcribed Document [facility] Radiology [address] [place] [address] Provider, [facility] MD Aguila Social History Tobacco Use Types Packs/Day Years Used Date Smoking Tobacco: Never Assessed Comments Unknown Sex and Gender Information Value Date Recorded Sex Assigned at Female 12/31/2021 12:41 PM CDT Legal Sex Female 6:46 PM CDT Gender Identity Female 12/31/2021 12:41 PM CDT Sexual Orientation Not on file documented as of this encounter Miscellaneous Notes * Cerner Conversion Note - [facility] Aguila ProviderMD - 04/13/2019 12:00 PM EDT [facility] Main OR Preop Summary Primary Physician: REGINA BEAR MD-URO Finalized Date/Time: 04/13/19 14:49:46 Pt. Name: PANKAJ NICOLE DAVINA PatricioB./Sex: 1970 Female Med Rec #: [id number] Physician: REGINA BEAR MD-URO Financial #: [id number] Pt. Type: O Room/Bed: Admit/Disch: 04/13/19 07:43:00 - 04/13/19 13:45:00 Institution: [facility] PreOp Case Times Entry 1 In Preop 04/13/19 07:53:00 Ready for Holding n/a Room Patient Ready for 04/13/19 08:49:00 Surgery Patient Out of Preop 04/13/19 10:39:00 Patient Out of n/a Holding Room Last Modified By: EVANS Hansen RN 04/13/19 14:49:44 [facility] PreOp Case Times Audit 04/13/19 14:49:44 Rocket Engine Component Mechanic: MORRIS Modifier: WILSONDL <+> 1 Patient Out of Preop 04/13/19 08:49:42 Rocket Engine Component Mechanic: MORRIS Modifier: WILSONDL <+> 1 Patient Ready for Surgery Finalized By: EVANS Hansen RN Document Signatures Signed By: EVANS Hansen RN 04/13/19 14:49 Electronically signed by Giancarlo [facility] Conversion External Relations Director Cerner at 11/24/2022 5:25 PM CDT documented in this encounter Plan of Treatment Not on file documented as of this encounter Visit Diagnoses Not on filedocumented in this encounter
--- OUTSIDE RECORDS SUMMARY | 2025-06-25 13:10 | XMS_ITS | Encounter Summary ---
Author Organization [employer] ([place], [place], [place], [place], [place]) Address [address] [place] [address] Care Team Providers Care Rattlesnake Farmer Name Role Phone Unavailable Primary Care Provider Unavailabl e Encounter Details Date Type Department Care Team (Late st Contact Info) Description 04/13/2019 Transcribed Document [facility] Radiology [address] [place] [address] Provider, [place] Sheehan MD Social [...] Miscellaneous Notes * Cerner Conversion Note - [facility] Gama MD - 04/13/2019 12:51 PM EDT DATE OF PROCEDURE:04/13/2019 PREOPERATIVE DIAGNOSIS(ES): Left ureteral stone. POSTOPERATIVE DIAGNOSIS(ES): Left ureteral stone. PROCEDURE: 1. Cystoscopy with left stone manipulation. 2. Left extracorporeal shock wave lithotripsy. 3. Fluoroscopic guidance. SURGEON: John Stephenson MD HEALTHCARE ADMINISTRATIVE ASSISTANT: Ziggy Hammond M.D. (R) ANESTHESIA: General. FINDINGS: [...] fashion. After time-out had been performed, the 22-Latvian cystoscope was lubricated, inserted into the urethra [...]
== END 2025-06-24 23:59 | disposition home or self-care (01) ==
LOC: LAB.DROPOF 06-25 13:08
PROVIDERS: PCP Student in an Organized Health Care Education/Training Program; Visit Provider Student in an Organized Health Care Education/Training Program
DX: J44.9 Chronic obstructive pulmonary disease, unspecified (principal); F41.9 Anxiety disorder, unspecified; E55.9 Vitamin D deficiency, unspecified; Z82.49 Family history of ischemic heart disease and other diseases of the circulatory system; E53.9 Vitamin B deficiency, unspecified
CPT/HCPCS: 80053; 82607; 84439; 84443; 85025; 87389